=== PATIENT | female | born 1965 | race Caucasian/White ===

== ENCOUNTER 2022-09-11 05:49 | Inpatient (IN) ==
--- NOTE | 2022-08-05 15:39 | PAT Medication Instructions ---
Medication Instructions Date of Service August 05, 2022 Home Medications atorvastatin 20 mg tablet 20 mg PO QAM diclofenac sodium 75 mg tablet,delayed release 75 mg PO BID metformin 500 mg tablet 500 mg PO BID omeprazole 20 mg tablet,delayed release 20 mg PO BID tramadol 50 mg tablet 50 mg PO TID PRN Pain ASK your surgeon for instructions diclofenac sodium 75 mg tablet,delayed release 75 mg PO BID DO NOT take the morning of surgery metformin 500 mg tablet 500 mg PO BID Take morning of surgery With a small sip of water, OTHERWISE NOTHING TO EAT OR DRINK AFTER MIDNIGHT: atorvastatin 20 mg tablet 20 mg PO QAM omeprazole 20 mg tablet,delayed release 20 mg PO BID tramadol 50 mg tablet 50 mg PO TID PRN Pain (if needed) Take evening before surgery metformin 500 mg tablet 500 mg PO BID omeprazole 20 mg tablet,delayed release 20 mg PO BID tramadol 50 mg tablet 50 mg PO TID PRN Pain (if needed) Other Notes If you have any questions please call us at [phone] or [phone] or [phone] or [phone]
--- NOTE | 2022-08-11 13:58 | Anesthesiology Consultation ---
Date of Service August 11, 2022 Assessment & Plan (1) Encounter for pre-operative examination: Chart Review Chart Review: Acceptable Risk for Surgery and Patient seen in Pre Admission Testing - Check BSG AM DOS Per PAT appt on 08/11/22, [place] [facility] [place]07/30/22-08/06/22). Visited family- wore proper PPE. Pt is vaccinated for Covid. Will leave to surgeon's discretion if preop Covid testing needed. Educated on importance of using Covid precautions one week prior to surgery Teaching & Discussion Pre-Anesthesia Teaching/Discussion Notes: Instructed NPO after midnight before surgery,except medications with 15 cc of water. Medication instructions provided according to the [facility] guidelines. History Surgery Operation Date: 09/11/22 07:45 Proposed Procedures p L4-L5 Decompression and Fusion, spinal Cord Monitoring - Rajesh Jett, Height/Weight Height: 5 ft 8 in Weight: 86.5 kg Allergies Allergy/AdvReac Type Severity Reaction Status Date / Time medroxyprogesterone Allergy Severe migraines Verified 08/05/22 11:12 [From Depo-Provera] codeine AdvReac Severe nausea & Verified 08/05/22 11:10 vomitting Medications Home Medications Medication Instructions Recorded Confirmed Last Taken atorvastatin 20 mg tablet 20 mg PO QAM 08/05/22 08/05/22 Unknown diclofenac sodium 75 mg 75 mg PO BID 08/05/22 08/05/22 Unknown tablet,delayed release metformin 500 mg tablet 500 mg PO BID 08/05/22 08/05/22 Unknown omeprazole 20 mg tablet,delayed 20 mg PO BID 08/05/22 08/05/22 Unknown release tramadol 50 mg tablet 50 mg PO TID PRN Pain 08/05/22 08/05/22 Unknown Past Medical History Medical History (Updated 08/11/22 @ 15:04 by Shaniqua Falk PA-C) 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 No current issues No known ECHO or cardio follow up needed No murmur noted at PAT appt on 08/11/22 Chronic back pain Degenerative disc disease Diabetes mellitus, type 2 NIDDM- glucose well controlled per patient Diabetic gastroparalysis GERD (gastroesophageal reflux disease) Well controlled and stable Hiatal hernia History of anesthesia reaction Slow to wake up after anesthesia. History of rheumatic fever as a child Hyperlipidemia Migraine hx Motion sickness has used dramamine when on a boat. Nausea and vomiting after administration of anesthetic agent Osteoarthritis Sleep apnea Non-compliant with machine Spinal stenosis Exercise / Class Metabolic Activity II 4-5 Yardwork/Stairs/Walk up hill (one flight of stairs - no chest pain or SOB ) Past Family History Family History Other No family history of adverse response to anesthesia Past Surgical History Surgical History History of bilateral tubal ligation History of carpal tunnel release right History of section x2 History of cholecystectomy History of colonoscopy History of esophagogastroduodenoscopy (EGD) History of hysterectomy with LSO History of laparoscopy lysis of adhesions S/P epidural steroid injection Past Anesthesia History No Hx of Anesthesia Complications (with exception to slow to wake- just groggy- no reintubation or ICU stay) and No Family Hx of Anesthesia Complications History of PONV History of PONV (scop patch ordered for DOS ) and Hx of Motion Sickness Social History Smoking Status: Current every day smoker tobacco type: cigarettes Smoking cigarettes per day: 20 - 25 cigs Do You Dip or Chew Tobacco: No Hx Alcohol Use: No Hx Substance Use: No substance use type: does not use Review of Systems Patient denies chest pain, shortness of breath, dyspnea on exertion, cough, wheezing, palpitations. No hx of seizures, stroke, [place]. No hx of blood clots or blood transfusions Physical Exam Vital Signs VITALS BP 121/79 P 95 TEMP 98.2 SP02 95% RESP 16 Constitutional no acute distress ENMT Mouth: no TMJ clicking Thyromental Distance: > or= 3.5 Finger Breadths (3.5) Mallampati Class: II Full dentures on top or bottom Neck neck extension not limited Respiratory normal respiratory effort; no respiratory distress Auscultation: lungs clear to auscultation bilaterally; no wheezes Cardiovascular Rate/Rhythm: regular rate and regular rhythm Heart Sounds: no murmur Vessels: no carotid bruit Musculoskeletal Spine: no pain with cervical ROM Extremities: extremities normal to inspection Psychiatric Orientation: alert Lab Results Anesthesia Preop Results Results Anesthesia Widget: WBC 9.13 K/ul (4.8-10.8) 08/11/22 Hgb 14.6 g/dl (12.0-16.0) 08/11/22 Hct 42.7 % (34.1-44.9) 08/11/22 Plt 173 K/uL (130-400) 08/11/22 Na 139 mmol/L (136-145) 08/11/22 K 3.8 mmol/L (3.5-5.1) 08/11/22 Cl 103 mmol/L (98-107) 08/11/22 CO2 29 mmol/L (21-32) 08/11/22 BUN 18 mg/dl (6-23) 08/11/22 Creat 0.86 mg/dl (0.6-1.2) 08/11/22 Glucose Level 102 mg/dl (70-99(Fasting)) H 08/11/22 PT 11.2 Seconds (9.0-12.0) 08/11/22 PTT 28.2 Seconds (21.0-31.0) 08/11/22 INR 1.1 (0.9-1.1) 08/11/22 HA1c 6.7 % (4.5-5.6) H 08/11/22 Urine Color Yellow 08/11/22 Urine Appearance Clear (Clear) 08/11/22 Urine pH 5.5 (4.5-7.5) 08/11/22 Urine Specific [place] 1.011 (1.000-1.030) 08/11/22 Urine Protein Negative (Negative) 08/11/22 Urine Glucose (UA) Negative (Negative) 08/11/22 Urine Ketones Negative (Negative) 08/11/22 Urine Blood Negative (Negative) 08/11/22 Urine Nitrite Negative (Negative) 08/11/22 Urine Bilirubin Negative (Negative) 08/11/22 Urine Urobilinogen Negative (Negative) 08/11/22 Urine Leukocyte Esterase Negative (Negative) 08/11/22 Blood Type A Positive 08/11/22 Antibody Screen NEGATIVE 08/11/22 Testing Electrocardiogram Date: 08/11/22 Findings: + NSR @ (84bpm ) Normal EKG per cardio. Chest X-Ray Date: 08/11/22 Findings: + NAD COVID-19 Risk Screen Screening Information COVID-19 Screen Date: 08/11/22 Exposure 21 Days Family/Household +COVID Last 21 Days: No Exposure 10 Days Any COVID Exposure Last 10 Days: No Symptoms Last 10 Days Experienced COVID Sx Last 10 Days: No + COVID 0-90 Days COVID + in Last 0-90 Days: No Risk Plan COVID Risk Plan: No Risk Identified Patient Education COVID Preop Screening Education Complete: Yes
[2022-09-11] MEDS ORDERED: ACETAMINOPHEN 500 MG TAB PO SCH (06:00)
[2022-09-11] MEDS ORDERED: GABAPENTIN 600 MG DOSE PO SCH (06:00)
[2022-09-11] MEDS ORDERED: ceFAZolin 2000MG 2,000 MG/15 ML SYR IV SCH (06:00)
[2022-09-11] MEDS ORDERED: CeleBREX 200 MG CAP PO SCH (06:00)
[2022-09-11] MEDS ORDERED: LR 15ML/HR IV SCH (06:00)
[2022-09-11] MEDS ORDERED: BUPIVACAINE/EPINEPHRINE 0.25% 1:200,000 30 ML VIAL ONE (06:59)
[2022-09-11] MEDS ORDERED: ceFAZolin 330 MG/ML 1 GM VIAL ONE (06:59)
[2022-09-11] MEDS ORDERED: SCOPOLAMINE 1 MG TDSY TD ONE (07:03)
[2022-09-11] MEDS ORDERED: ATROPINE SULFATE 0.1 MG/ML 10ML SYR IV PRN (07:06)
[2022-09-11] MEDS ORDERED: ONDANSETRON INJ 2 MG/ML 2 ML VIAL IV PRN ×2 (07:06→11:01)
[2022-09-11] MEDS ORDERED: ePHEDrine sulfate 50 MG/ML AMP IV PRN (07:06)
[2022-09-11] MEDS ORDERED: HYDROmorphone INJ 2 MG/ML SYR/VIAL IV PRN (07:06)
[2022-09-11] MEDS ORDERED: SUCCINYLCHOLINE CHLORIDE 20 MG/ML 10 ML VIAL IV ONE (07:31)
[2022-09-11] MEDS ORDERED: fentaNYL citrate 100 MCG/2 ML VIAL ONE ×2 (07:33→08:27)
[2022-09-11] MEDS ORDERED: ROCURONIUM BROMIDE 10 MG/ML 5 ML VIAL IV ONE (07:33)
[2022-09-11] MEDS ORDERED: DEXAMETHASONE SOD INJ 4 MG/ML VIAL ONE (07:34)
[2022-09-11] MEDS ORDERED: ONDANSETRON INJ 2 MG/ML 2 ML VIAL ONE ×2 (07:34→08:28)
[2022-09-11] MEDS ORDERED: MIDAZOLAM HCL 1 MG/ML 2ML VIAL ONE (07:34)
[2022-09-11] MEDS ORDERED: LIDOCAINE 2% MPF LOCAL 5 ML VIAL INFIL ONE (07:35)
[2022-09-11] MEDS ORDERED: diphenhydrAMINE 50 MG/ML VIAL ONE (07:35)
--- NOTE | 2022-09-11 07:36 | History & Physical Bridge Note ---
Date of Service September 11, 2022 History & Physical Bridge Note I have examined the patient, reviewed the History & Physical and in the interval since the performance of the History & Physical I have noted the following changes of clinical significance: no changes noted
--- NOTE | 2022-09-11 07:37 | History & Physical Report ---
Date of Service September 11, 2022 Assessment & Plan (1) Neurogenic claudication due to lumbar spinal stenosis: Plan: L4-L5 decompression fusion History of Present Illness Chief Complaint: Back and leg pain Primary Care Provider: Linda Martini This is a 57-year-old female who presents with chronic persistent back and leg pain. Failed extensive course of nonoperative care is here for surgical intervention. Allergies Allergy/AdvReac Type Severity Reaction Status Date / Time medroxyprogesterone Allergy Severe migraines Verified 09/11/22 06:17 [From Depo-Provera] codeine AdvReac Severe nausea & Verified 09/11/22 06:17 vomitting Home Medications Medication Instructions Recorded Confirmed Type atorvastatin 20 mg tablet 20 mg PO QAM 08/05/22 09/11/22 History diclofenac sodium 75 mg 75 mg PO BID 08/05/22 09/11/22 History tablet,delayed release metformin 500 mg tablet 500 mg PO BID 08/05/22 09/11/22 History omeprazole 20 mg tablet,delayed 20 mg PO BID 08/05/22 09/11/22 History release tramadol 50 mg tablet 50 mg PO TID PRN Pain 08/05/22 09/11/22 History Past Med/Surg History Medical History (Updated 09/11/22 @ 07:37 by Rajesh Jett DO) 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 No current issues No known ECHO or cardio follow up needed No murmur noted at PAT appt on 08/11/22 Chronic back pain Degenerative disc disease Diabetes mellitus, type 2 NIDDM- glucose well controlled per patient Diabetic gastroparalysis Gastroparesis GERD (gastroesophageal reflux disease) Well controlled and stable Hiatal hernia History of anesthesia reaction Slow to wake up after anesthesia. History of rheumatic fever as a child Hyperlipidemia Migraine hx Motion sickness has used dramamine when on a boat. Nausea and vomiting after administration of anesthetic agent Osteoarthritis Sleep apnea Non-compliant with machine Spinal stenosis Surgical History History of bilateral tubal ligation History of carpal tunnel release right History of section x2 History of cholecystectomy History of colonoscopy History of esophagogastroduodenoscopy (EGD) History of hysterectomy with LSO History of laparoscopy lysis of adhesions S/P epidural steroid injection Family History Other No family history of adverse response to anesthesia Social History Smoking Status: Current every day smoker Cigarettes Per Day: 20 - 25 cigs; Second Hand Exposure: Yes; Do You Dip or Chew Tobacco: No; Tobacco Cessation Education Requested by Patient: No Hx Alcohol Use: No Hx Substance Use: No Preferred Language: Jordanian Communication Ability: Effective Shipmaster Required: No Beliefs That Will Affect Care: None Current Living Situation: Alone Other Information That Helps Us Care for You: No Feels Safe at Home: Yes Safety Concerns: Feels Safe At This Time Assistive Devices: Denture - Upper, Denture - Lower and Glasses Physical Exam Physical Exam: Patient is alert and oriented Heart regular rhythm Lungs clear Results & Data Results & Data ([facility]) Vital Signs (Past 12 Hours) Vital Signs Temp Pulse Resp BP Pulse Ox O2 Del Method 09/11/22 06:20 36.9 C 101 H 18 147/93 H 96 Room Air
[2022-09-11] MEDS ORDERED: FAMOTIDINE/PF 20 MG/2 ML VIAL IV ONE (07:40)
[2022-09-11] MEDS ORDERED: FLOSEAL HEMOSTATIC MATRIX 10ML TOP ONE (08:27)
[2022-09-11] MEDS ORDERED: GLYCOPYRROLATE 0.2 MG/ML VIAL ONE ×2 (09:27)
--- NOTE | 2022-09-11 09:38 | Operative Report ---
Post Operative Report Pre & Post Diagnosis Operation Date: 09/11/22 07:45 Pre-Op Diagnosis: Lumbar spinal stenosis with spondylolisthesis and neurogenic claudication Post-Op Diagnosis: Same I identified the patient and participated in the time-out.: Yes Procedure Operation Date: 09/11/22 07:45 Actual Procedures #1 lumbar decompression with bilateral medial facetectomies and foraminotomies L3-L4 L4-5. #2 posterior spinal fusion L4-5. #3 placement posterior instrumentation L4-L5. #4 interbody fusion L4-L5. #5 placement of Spira 14 x 26 mm cage at L4-5. #6 placement locally harvested morselized autograft in the posterior gutters. #7 placement of I factor combined with V toss in the right space and posterior gutters. Surgeon Rajesh Jett, Refining Engineer None Estimated Blood Loss 100 Findings Consistent with Post-Op Diagnosis Specimens None Indications This is a 57-year-old female presents above-mentioned diagnosis after failed course of nonoperative care she is here for surgical intervention. Description of Procedure Patient was met with identified informed consent obtained. Patient was then taken to the operative suite underwent an patient placed in a prone position on the Spike table on top of the Dangelo frame. All bony prominences well-padded eyes inspected to ensure no external pressure placed upon them. This point the lumbar spine was prepped and draped in the normal sterile fashion. Sharp dissection with the assistance of Bovchucky Cardizem performed down to and exposing the lamina transverse processes of L4-L5 bilaterally. From caudal to cephalad fashion complete laminectomy of L for partial laminectomy L3 was performed including bilateral medial facetectomies and foraminotomies addressing severe spinal stenosis. Pedicle screws then placed at L4-L5 bilaterally with assistance of fluoroscopy and properly sized hannah placed. By way of entrance foraminal approach and left pleat discectomy of L4-L5 was performed endplates curetted to subcortical bleeding bone and a 14 x 26 mm Spira cage filled with I factor tapped in position. The rods then locked in final position bilaterally. The transverse processes of L4-L5 burred to subcortical bleeding bone. I factor model V toss and locally harvested morselized autograft was placed in the posterior gutters. 15 round MITZI inserted. The incision was then closed with 1 Vicryl in the fascia 2-0 Vicryl subcutaneously and 4 Monocryl for final skin closure. Steri-Strips dressings placed. Patient awakened taken to PACU stable condition. Please note spinal cord monitoring was utilized at the procedure no changes noted. I attest to the content of the Intraoperative Record and any orders documented therein. Any exceptions are noted below.
[2022-09-11] MEDS: fentaNYL citrate 100 MCG/2 ML VIAL IV PRN ×4 (10:13→10:28)
--- NOTE | 2022-09-11 10:28 | Fluoroscopy Report ---
FL lumbar spine 2-3V HISTORY: 57 years-old Female L4-L5 DECOMPRESSION AND FUSION COMPARISON: None TECHNIQUE: 2 spot fluoroscopic images of the lumbar spine were obtained utilizing 16.9 seconds fluoro scopy time FINDINGS: Posterior interbody hannah and screw fusion with discectomy at L4-L5. The hardware appears intact. No un expected residual opaque foreign bodies identified. Multilevel spondylitic spurring. IMPRESSION: Fluoroscopic assistance as above. ACT 112: Negative or not required by law. The above report was generated using voice recognition software. It may contain grammatical, syntax o r spelling errors. Electronically signed by: Richard Bowser M.D. 09/11/2022 10:27 AM
--- NOTE | 2022-09-11 10:52 | Anesthesiology Progress Note ---
Date of Service September 11, 2022 Anesthesia Post Procedure Vital Signs Vital Signs: Temp Pulse Pulse Resp BP Pulse Ox O2 Del Method 09/11/22 10:40 97.3 F L 94 H 15 120/83 95 Nasal Cannula 09/11/22 10:30 99 H 14 129/89 96 Oxymask 09/11/22 10:20 95 H 13 111/74 97 Oxymask 09/11/22 10:10 105 H 14 141/90 H 99 Oxymask 09/11/22 10:00 95 H 13 126/88 98 Oxymask 09/11/22 09:53 97.9 F 102 H 14 125/87 97 Oxymask 09/11/22 06:20 98.4 F 101 H 18 147/93 H 96 Room Air O2 Flow Rate 09/11/22 10:40 2 09/11/22 10:30 4 09/11/22 10:20 6 09/11/22 10:10 6 09/11/22 10:00 6 09/11/22 09:53 6 09/11/22 06:20 Pain Intensity Back: Pain Intensity: 9 Transfer of Care Handoff Completed per policy Notes Mental Status: alert / awake / arousable and participated in evaluation Patient Amnestic to Procedure: Yes Nausea / Vomiting: adequately controlled Pain: adequately controlled Airway Patency, RR, SpO2: stable & adequate BP & HR: stable & adequate Hydration State: stable & adequate Anesthetic Complications: no major complications apparent and Pt Satisfied with anesthetic care
[2022-09-11] MEDS ORDERED: METOCLOPRAMIDE HCL INJ 5 MG/ML 2 ML VIAL IV PRN (11:01)
[2022-09-11] MEDS ORDERED: SOD PHOSPHATE/SOD BIPHOSPHATE ENEMA 132 ML BTL PR PRN (11:01)
[2022-09-11] MEDS ORDERED: PHARMACY GLYCEMIC MGMT CONSULT PRN (11:01)
[2022-09-11] MEDS ORDERED: ACETAMINOPHEN 1,000 MG/100 ML VIAL IV PRN (11:01)
[2022-09-11] MEDS ORDERED: MAGNESIUM HYDROXIDE SUSP 30 ML UDC PO PRN (11:01)
[2022-09-11] MEDS ORDERED: LORazepam 2 MG/1 ML VIAL IV PRN (11:01)
[2022-09-11] MEDS ORDERED: LORazepam 0.5 MG TAB PO PRN (11:01)
[2022-09-11] MEDS ORDERED: DO NOT ADMINISTER FLU VACCINE PRN (11:01)
[2022-09-11] MEDS ORDERED: HYDROmorphone INJ 0.5 MG/0.5 ML SYR IV PRN (11:01)
[2022-09-11] MEDS ORDERED: HYDROmorphone INJ 1 MG/ML SYRINGE IV PRN (11:01)
[2022-09-11] MEDS ORDERED: ONDANSETRON 4 MG OD TAB PO PRN (11:01)
[2022-09-11] MEDS ORDERED: NALOXONE HCL 0.4 MG/1 ML VIAL/CARP IV PRN (11:01)
[2022-09-11] MEDS ORDERED: diphenhydrAMINE Capsule 25 MG CAP PO PRN (11:01)
[2022-09-11] MEDS ORDERED: bisacodyL 10 MG SUPP PR PRN (11:01)
[2022-09-11] MEDS ORDERED: hydrOXYzine HCl 25 MG TAB PO PRN (11:01)
[2022-09-11] MEDS ORDERED: ALUMINUM/MAGNESIUM SUSP 30 ML UDC PO PRN (11:01)
[2022-09-11] MEDS ORDERED: DO NOT ADMINISTER PNEUMOCOCCAL VACCINE PRN (11:01)
[2022-09-11] MEDS ORDERED: FAMOTIDINE 20 MG TAB PO PRN (11:01)
[2022-09-11] MEDS ORDERED: ACETAMINOPHEN 500 MG TAB PO PRN (11:01)
[2022-09-11] MEDS ORDERED: PROMETHAZINE HCL 12.5 MG in SODIUM CHLORIDE 0.9% 50 ML IV PRN (11:01)
[2022-09-11] MEDS: SODIUM CHLORIDE 0.9% 1000ML 1,000 ML IV SCH ×2 (11:20→20:49)
[2022-09-11] MEDS: oxyCODONE HCL IR 5 MG TAB (IMMEDIATE RELEASE) PO PRN ×3 (11:22→20:08)
--- NOTE | 2022-09-11 11:35 | Hospitalist Consultation ---
Date of Consultation September 11, 2022 Assessment & Plan (1) Neurogenic claudication due to lumbar spinal stenosis: - Pain management, bowel regimen and DVT ppx per the primary team - PT/OT consults - Follow am CBC to monitor for acute blood loss, last hgb was 14.6 (2) Diabetes mellitus, type 2: - Continue ISS with Accu-Cheks ACHS, 1 dose of insulin glargine 10 units due at noon today - Glycemic pharmacy consulted - Holding metformin (3) Hyperlipidemia: - May continue atorvastatin (4) Sleep apnea: - Noncompliant with home CPAP, will order here (5) Tobacco abuse: - Smoking cessation encouraged at bedside - Will order nicotine patch now for hx of 1.5 ppd x 40 years (6) GERD (gastroesophageal reflux disease): -Continue omeprazole DVT PPx: - teds, scds CODE: Full code Dispo: From home, likely to remain in the hospital x 1-2 days Thank you for involving us in the care of Ms. Daniels. If you have any questions or concerns please do not hesitate to call. At this time medicine will follow along. Supervising Physician Co-Signing Physician Notes I have seen and examined the patient and have discussed the case with the provider above. I agree with the assessment and plan as stated. 57 yo F post op from back surgery today. She is sleepy but doing well and has no symptoms at this time. Reports that pain is well managed. My physical exam reflects that above. Medications were reviewed. Cont management as listed above. DO Sánchez History of Present Illness Reason for Consultation: Post op med management Requesting Physician: Dr. Jett Attending Physician: Rajesh Jett DO History of Present Illness This is a 57 yo F with PMhx of DM type II, HLD, cardiac murmur, DDD, diabetic gastroparesis paralysis, GERD, migraine, sleep apnea, spinal stenosis who underwent L4-L5 decompression surgery today by Dr. Jett. She is still sleepy from anesthesia. Her son Nahum and [id number] are present at bedside. They report that the patient lives with them in a ranch style home. Last BM was yesterday. Pt reports that she smokes 1.5 ppd x 40 years. She is requesting a nicotine patch. Pain is well controlled now after getting a pain pill a little bit ago. Denies any other complaints. Lunch has just arrived but hasn't trialed food yet, but has tolerated sips of water without difficulty. She reports sensation is back completely in both of her feet and is able to wiggle toes without difficulty. Allergies Allergy/AdvReac Type Severity Reaction Status Date / Time medroxyprogesterone Allergy Severe migraines Verified 09/11/22 06:17 [From Depo-Provera] codeine AdvReac Severe nausea & Verified 09/11/22 06:17 vomitting Home Medications Medication Instructions Recorded Confirmed Type atorvastatin 20 mg tablet 20 mg PO QAM 08/05/22 09/11/22 History diclofenac sodium 75 mg 75 mg PO BID 08/05/22 09/11/22 History tablet,delayed release metformin 500 mg tablet 500 mg PO BID 08/05/22 09/11/22 History omeprazole 20 mg tablet,delayed 20 mg PO BID 08/05/22 09/11/22 History release tramadol 50 mg tablet 50 mg PO TID PRN Pain 08/05/22 09/11/22 History oxycodone 5 mg tablet 5 mg PO Q6H PRN pain, severe #30 09/11/22 Rx tabs tramadol 50 mg tablet 50 mg PO Q6H PRN pain, moderate 09/11/22 Rx #30 tabs Patient History Medical History (Updated 09/11/22 @ 13:14 by Kate Joyner PA-C) 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 No current issues No known ECHO or cardio follow up needed No murmur noted at PAT appt on 08/11/22 Chronic back pain Degenerative disc disease Diabetes mellitus, type 2 NIDDM- glucose well controlled per patient Diabetic gastroparalysis Gastroparesis GERD (gastroesophageal reflux disease) Well controlled and stable Hiatal hernia History of anesthesia reaction Slow to wake up after anesthesia. History of rheumatic fever as a child Hyperlipidemia Migraine hx Motion sickness has used dramamine when on a boat. Nausea and vomiting after administration of anesthetic agent Osteoarthritis Sleep apnea Non-compliant with machine Spinal stenosis Surgical History History of bilateral tubal ligation History of carpal tunnel release right History of section x2 History of cholecystectomy History of colonoscopy History of esophagogastroduodenoscopy (EGD) History of hysterectomy with LSO History of laparoscopy lysis of adhesions S/P epidural steroid injection Family History Other No family history of adverse response to anesthesia Social History Smoking Status: Current every day smoker Cigarettes Per Day: 20 - 25 cigs; Second Hand Exposure: Yes; Do You Dip or Chew Tobacco: No; Tobacco Cessation Education Requested by Patient: No Hx Alcohol Use: No Hx Substance Use: No Preferred Language: New Zealander Communication Ability: Effective Ceramic Tiler Required: No Beliefs That Will Affect Care: None Current Living Situation: Alone Other Information That Helps Us Care for You: No Feels Safe at Home: Yes Safety Concerns: Feels Safe At This Time Assistive Devices: Denture - Upper, Denture - Lower and Glasses Review of Systems Review of Systems: Constitutional: No fever, sweats or chills Eyes: No diplopia, no worsening or blurred vision ENT: normal hearing, no trouble swallowing Respiratory: No cough, sputum, dyspnea at rest or on exertion Cardiovascular: No chest pain, tightness or palpitations Abdomen: No pain, nausea, vomiting, diarrhea or constipation Musculoskeletal: No joint pain, calf pain, swelling Neurologic: No weakness, numbness/tingling, or balance problems Psychiatric: No anxiety or depression Skin: No rash or itch Physical Exam Physical Exam: General: awakens to verbal stimuli but is somnolent post procedure, no apparent distress Head: Normocephalic, atraumatic ENT: PERRL, EOMI, no pharyngeal exudate, mucous membranes moist Chest: Clear to auscultation, on room air, no adventitious breath sounds Cardiac: Regular rate and rhythm, no murmur, no JVD, normal peripheral pulses, good capillary refill Abdominal: NABS x 4 quadrants, soft, nondistended, nontender to palpation, no rebound or guarding Back: dressing c/d/i, MITZI drain in place draining serosanguineous bloody fluids Extremities: + clubbing of fingernails, otherwise normal inspection, no peripheral edema or erythema, calfs nontender to palpation, wiggles toes without difficulty Psych: Normal mood and affect Neuro: AAO x 3, strength intact bilaterally and rated 5/5 in lower extremities, no gross motor deficits, speech is clear, no peripheral sensory deficits Results & Data Results & Data ([facility]) Vital Signs (Past 12 Hours) Vital Signs Temp Pulse Pulse Resp BP Pulse Ox O2 Del Method 09/11/22 11:25 36.3 C L 94 H 17 128/85 99 Nasal Cannula 09/11/22 11:00 36.6 C 77 16 127/76 99 Nasal Cannula 09/11/22 10:40 36.3 C L 94 H 15 120/83 95 Nasal Cannula 09/11/22 10:30 99 H 14 129/89 96 Oxymask 09/11/22 10:20 95 H 13 111/74 97 Oxymask 09/11/22 10:10 105 H 14 141/90 H 99 Oxymask 09/11/22 10:00 95 H 13 126/88 98 Oxymask 09/11/22 09:53 36.6 C 102 H 14 125/87 97 Oxymask 09/11/22 06:20 36.9 C 101 H 18 147/93 H 96 Room Air O2 Flow Rate 09/11/22 11:25 2 09/11/22 11:00 2 09/11/22 10:40 2 09/11/22 10:30 4 09/11/22 10:20 6 09/11/22 10:10 6 09/11/22 10:00 6 09/11/22 09:53 6 09/11/22 06:20 Laboratory Results 09/11/22 09/11/22 09/11/22 12:03 09:55 06:10 POC Glucose 173 H 167 H 124 H SARS-CoV-2, RNA, NAAT 09/11/22 06:00 POC Glucose SARS-CoV-2, RNA, NAAT NEGATIVE
--- NOTE | 2022-09-11 11:56 | Pharmacy Report ---
Pharmacy Glycemic Short Note 2 - Date of Service September 11, 2022 - Glycemic Short BSG Results (Last 24 hours): 09/11/22 09/11/22 06:10 09:55 POC Glucose 124 H 167 H OUTPATIENT ANTIDIABETIC REGIMEN: * Metformin 500 mg PO BID ASSESSMENT: * 57 y/o F admitted for lumbar decompression surgery today. Patient with history of Type 2 diabetes managed at home only on oral Metformin. * Holding Metformin for now post op, until renal function is stable and patient is back on normal diet. * Patient received Dexamethasone 4 mg IV in OR this morning. Lantus 10 units (based on wt and stress of 1) ordered for noon today to prevent steroid induced hyperglycemia later today. * IV Dexamethasone 6 mg QAM x3 days starts tomorrow. Will re-assess basal dosing tomorrow. * Novolog parameters ordered based on stress between 2 and 3. PLAN FOR INPATIENT GLYCEMIC CONTROL: * Hold outpatient oral diabetes medications * Basal insulin * Lantus 10 units SQ today at noon for IV Dex 4 mg given today in AM. Re- assess basal tomorrow. * Bolus insulin * NovoLog per scale ACHS or Q6hrs while NPO * Goal Range: Low 110 mg/dL - High 140 mg/dL * Correction Factor: 25 mg/dL/unit * Nutritional / Prandial insulin per carb ratio of 1 unit per 9 grams CHO consumed
[2022-09-11] MEDS ORDERED: LANTUS PER UNIT CHARGE SQ SCH (12:00)
[2022-09-11] MEDS: INSULIN ASPART PER UNIT SC SCH ×3 (12:52→20:49)
[2022-09-11] MEDS: NICOTINE 21 MG/24 HR TDSY TD SCH (14:00)
[2022-09-11] MEDS: ceFAZolin 2000MG 2,000 MG/15 ML SYR IV SCH ×2 (15:04→23:37)
[2022-09-11] MEDS: DOCUSATE SODIUM/SENNA 50/8.6MG TAB PO SCH (20:08)
[2022-09-11] MEDS: PANTOprazole 40 MG TAB PO SCH (20:08)
[2022-09-12] MEDS: oxyCODONE HCL IR 5 MG TAB (IMMEDIATE RELEASE) PO PRN ×3 (03:10→13:12)
[2022-09-12] MEDS: SODIUM CHLORIDE 0.9% 1000ML 1,000 ML IV SCH (05:34)
[2022-09-12] MEDS ORDERED: POLYETHYLENE (MIRALAX) 17 GM PACK PO SCH (06:00)
[2022-09-12 07:49] LABS: Basophils # (auto) 0.02 K/uL (0-0.2); Basophils % (auto) 0.1 %; Eosinophils # (auto) 0.01 K/uL (0-0.50); Eosinophils % (auto) 0.1 %; Hematocrit (blood only) 40.6 % (34.1-44.9); Hemoglobin 13.5 g/dl (12.0-16.0); Immature Granulocytes # (auto) 0.07 K/uL (0.00-0.02); Immature Granulocytes % (auto) 0.5 %; Lymphocytes # (auto) 1.88 K/uL (1.2-3.4); Lymphocytes % (auto) 12.8 %; Mean Corpuscular Hemoglobin 30.3 pg (25.0-34.0); Mean Corpuscular Hgb Conc 33.3 g/dL (32.0-36.0); Monocytes # (auto) 1.18 K/uL (0.24-0.82); Neutrophils # (auto) 11.58 K/uL (1.4-6.5); Neutrophils % (auto) 78.5 %; Platelet Count 182 K/uL (130-400); RDW Coefficient of Variation 12.5 % (11.5-14.5); RDW Standard Deviation 41.4 fL (36.4-46.3); Red Blood Count 4.46 M/uL (3.93-5.22); White Blood Count 14.74 K/ul (4.8-10.8)
[2022-09-12 08:28] LABS: BUN Creatinine Ratio 18.1 (10-20); Calcium 8.7 mg/dl (8.5-10.1); Creatinine Clr Calc Pharmacy 94.9 ml/min; Est GFR (African American) 107.7 ml/min; Potassium 4.7 mmol/L (3.5-5.1)
[2022-09-12] MEDS: traMADol HCL 50 MG TABLET PO PRN ×3 (08:47→20:07)
[2022-09-12] MEDS: dexAMETHasone 6 MG in SYRINGE 0 ML IV SCH (08:48)
[2022-09-12] MEDS: PANTOprazole 40 MG TAB PO SCH ×2 (08:48→21:13)
[2022-09-12] MEDS: NICOTINE 21 MG/24 HR TDSY TD SCH (08:48)
[2022-09-12] MEDS: ATORVASTATIN 20 MG TAB PO SCH (08:49)
[2022-09-12] MEDS ORDERED: LANTUS PER UNIT CHARGE SQ SCH (09:00)
[2022-09-12] MEDS: INSULIN ASPART PER UNIT SC SCH ×4 (09:06→21:24)
--- NOTE | 2022-09-12 09:32 | Orthopedic Progress Note ---
Date of Service September 12, 2022 Assessment & Plan (1) Neurogenic claudication due to lumbar spinal stenosis: Plan: At this time we will continue physical therapy monitor MITZI operatively discharge home next few days. Admission and Anticipated Discharge Date Admission Date: September 11, 2022 Subjective Back pain controlled leg pain improved Physical Exam Physical Exam: Patient is in bed. She is constricted testing. Results & Data ([facility]) Vital Signs (Past 12 Hours) Vital Signs Temp Pulse Resp BP Pulse Ox O2 Del Method 09/12/22 06:59 36.6 C 82 16 102/66 93 Room Air 09/12/22 02:59 36.5 C 77 16 112/68 96 Room Air 09/11/22 23:26 36.9 C 80 16 114/64 95 Room Air
--- NOTE | 2022-09-12 12:25 | Pharmacy Report ---
Pharmacy Glycemic Short Note 2 - Date of Service September 12, 2022 - Glycemic Short BSG Results (Last 24 hours): 09/11/22 09/11/22 09/12/22 17:01 20:41 07:06 Glucose 126 H POC Glucose 138 H 142 H 09/12/22 09/12/22 08:16 12:06 Glucose POC Glucose 124 H 180 H OUTPATIENT ANTIDIABETIC REGIMEN: * Metformin 500 mg PO BID HbA1c: 6.7% 08/11/22 ASSESSMENT: 09/12/22: * BSGs reasonably well-controlled postoperatively * SCr this morning of 0.72 mg/dL (eCrCl 95 mL/min) * Will restart home metformin with dinner tonight * Will slightly tighten carb coverage today 09/11/22: * 57 y/o F admitted for lumbar decompression surgery today. Patient with history of Type 2 diabetes managed at home only on oral Metformin. * Holding Metformin for now post op, until renal function is stable and patient is back on normal diet. * Patient received Dexamethasone 4 mg IV in OR this morning. Lantus 10 units (based on wt and stress of 1) ordered for noon today to prevent steroid induced hyperglycemia later today. * IV Dexamethasone 6 mg QAM x3 days starts tomorrow. Will re-assess basal dosing tomorrow. * Novolog parameters ordered based on stress between 2 and 3. PLAN FOR INPATIENT GLYCEMIC CONTROL: * Metformin 500 mg PO BIDM * Basal insulin * Lantus 10 units SC daily * Bolus insulin * NovoLog per scale ACHS or Q6hrs while NPO * Goal Range: Low 110 mg/dL - High 140 mg/dL * Correction Factor: 25 mg/dL/unit * Nutritional / Prandial insulin per carb ratio of 1 unit per 8 grams CHO consumed
--- NOTE | 2022-09-12 14:49 | Hospitalist Progress Note ---
Date of Service September 12, 2022 Assessment & Plan (1) Neurogenic claudication due to lumbar spinal stenosis: Plan: S/P lumbar decompression, fusion surgery by Dr. Jett on 09/11/2022 Pain management, DVT px, wound care per the primary team Continue PT/OT Fall precautions Bowel regimen to prevent constipation Continue incentive spirometry Monitor for postop anemia (2) Diabetes mellitus, type 2: Plan: - Continue ISS per protocol - Glycemic pharmacy consulted - Hold metformin - Monitor BGs (3) Hyperlipidemia: Plan: - On atorvastatin (4) Sleep apnea: Plan: - CPAP HS (5) Tobacco abuse: Plan: - Smoking cessation encouraged - Nicotine patch (6) GERD (gastroesophageal reflux disease): Plan: -Continue PPI DVT Px: Per Primary team CODE STATUS: Full code Admission and Anticipated Discharge Date Admission Date: September 11, 2022 Subjective Patient is seen and examined at bedside Sitting in chair during my encounter Reports back pain, controlled Also reports constipation Denies any chest pain, shortness of breath, dizziness, nausea No other complaints Family at bedside Review of Systems Review of Systems: All systems reviewed & are unremarkable except as noted in Subjective Physical Exam Physical Exam: Physical Exam: Vitals signs as noted above General Appearance:Moderately built and nourished, no apparent distress Head: normocephalic, Atraumatic Eyes: normal inspection, EOMI Neck: supple, Trachea midline Respiratory/Chest: Normal breath sounds, CTA, No accessory muscle use Cardiovascular: S1, S2, No murmur Back: +Surgical site in dressing Abdomen/GI:Soft, Non tender, Bowel sounds present Extremities/Musculoskeletal:normal inspection, no edema Neurologic/Psych:AAOX3, grossly no focal neurological deficits Skin: normal color, warm Results & Data Results & Data ([facility]) Vital Signs (Past 12 Hours) Vital Signs Temp Pulse Resp BP Pulse Ox O2 Del Method 09/12/22 12:07 36.8 C 88 16 117/75 95 Room Air 09/12/22 06:59 36.6 C 82 16 102/66 93 Room Air 09/12/22 02:59 36.5 C 77 16 112/68 96 Room Air Laboratory Results Short CBC 09/12/22 Range/Units 07:06 WBC 14.74 H (4.8-10.8) K/ul Hgb 13.5 (12.0-16.0) g/dl Hct 40.6 (34.1-44.9) % Plt Count 182 (130-400) K/uL BMP 09/12/22 07:06 Sodium 140 Potassium 4.7 Chloride 103 Carbon Dioxide 33 H BUN 13 Creatinine 0.72 Glucose 126 H Calcium 8.7
[2022-09-12] MEDS: metFORMIN HCL 500 MG TAB PO SCH (17:50)
[2022-09-12] MEDS: DOCUSATE SODIUM/SENNA 50/8.6MG TAB PO SCH (21:14)
[2022-09-13] MEDS: traMADol HCL 50 MG TABLET PO PRN (06:48)
[2022-09-13 06:54] LABS: Hematocrit (blood only) 38.5 % (34.1-44.9); Hemoglobin 12.9 g/dl (12.0-16.0); Mean Corpuscular Hemoglobin 30.2 pg (25.0-34.0); Mean Corpuscular Hgb Conc 33.5 g/dL (32.0-36.0); Mean Corpuscular Volume 90.2 fL (80.0-100.0); Mean Platelet Volume 11.4 fL (9.4-12.3); Platelet Count 185 K/uL (130-400); RDW Coefficient of Variation 12.4 % (11.5-14.5); RDW Standard Deviation 41.1 fL (36.4-46.3); Red Blood Count 4.27 M/uL (3.93-5.22); White Blood Count 13.04 K/ul (4.8-10.8)
[2022-09-13 07:19] LABS: BUN Creatinine Ratio 21.7 (10-20); Calcium 8.7 mg/dl (8.5-10.1); Est GFR (Non-African American) 96.6 ml/min; Potassium 4.1 mmol/L (3.5-5.1)
[2022-09-13] MEDS ORDERED: LANTUS PER UNIT CHARGE SQ SCH (09:00)
[2022-09-13] MEDS: PANTOprazole 40 MG TAB PO SCH (09:35)
[2022-09-13] MEDS: metFORMIN HCL 500 MG TAB PO SCH (09:35)
[2022-09-13] MEDS: ATORVASTATIN 20 MG TAB PO SCH (09:35)
[2022-09-13] MEDS: dexAMETHasone 6 MG in SYRINGE 0 ML IV SCH (09:36)
[2022-09-13] MEDS: NICOTINE 21 MG/24 HR TDSY TD SCH (09:36)
[2022-09-13] MEDS: INSULIN ASPART PER UNIT SC SCH (09:49)
[2022-09-13] MEDS: oxyCODONE HCL IR 5 MG TAB (IMMEDIATE RELEASE) PO PRN (09:53)
--- NOTE | 2022-09-13 10:44 | Discharge Summary ---
Date of Service September 13, 2022 Admission HPI Per Admitting Provider This is a 57-year-old female who presents with chronic persistent back and leg pain. Failed extensive course of nonoperative care is here for surgical intervention. Principal Diagnosis Lumbar spinal stenosis with neurogenic claudication Discharge Data Allergies Allergy/AdvReac Type Severity Reaction Status Date / Time medroxyprogesterone Allergy Severe migraines Verified 09/11/22 06:17 [From Depo-Provera] codeine AdvReac Severe nausea & Verified 09/11/22 06:17 vomitting Consultations 09/11/22 11:01 Consult Hospitalist Routine Procedures Performed Operation Date: 09/11/22 07:45 Actual Procedures p L4-L5 Decompression and Fusion, Interbody Fusion L4-L5, Spinal Cord Monitoring(Not Applicable) - Rajesh Jett DO Ordered Studies 09/11/22 07:45 FL lumbar spine 2-3V Routine Hospital Course (1) Neurogenic claudication due to lumbar spinal stenosis: Patient with lumbar decompression fusion tolerated this well was taken to the with performed separately. Postoperatively when she was up and ambulating progress postop day 2. MITZI drain decreasing probably. EXTR strength testing. Pain well controlled. Subsequently discharged home. Discharge orders and instructions from the chart for further review. Total Time Total Time Spent Total Time Spent (In Minutes): 20 minutes Discharge Plan Discharge Items Patient Disposition: Home - Self-Care Reason For Visit: Spinal Stenosis, Lumbar Region Without Neurogenic Discharge Diagnosis: Lumbar spinal stenosis with neurogenic claudication Activity: As commented below Non-emergency contact: Primary Care Provider Call non-emergency contact if: you have any medication questions Follow-up/Referrals: Linda Martini M.D. [Primary Care Provider] - Diet: Regular Addtl Attending Provider Instructions: ACTIVITY RECOMMENDATIONS: SELF CARE INSTRUCTIONS AFTER THORACIC/LUMBAR FUSIONS 1. You may walk to your tolerance. It is good exercise for your legs and back. Expect some back and intermittent leg aches and pains. 2. You may perform "counter-top" level activities (make a sandwich, terrance with a project, etc.). 3. No bending or lifting of more than 10 pounds or back twisting of any nature (roll like a log when turning in bed). 4. You may ride in a car for 20-30 minutes at a time. No driving until after your first visit with your doctor. 5. Frequent changes of position and restricting sitting to 30 minutes at a time will help limit the amount of back spasms and stiffness you may experience. 6. You may discontinue the use of ambulatory aids (cane, crutches, etc.) once your strength and confidence allow. 7. You may spring tester the shower and let water strike your incision when you arrive home at least once daily. Do not take a tub bath, sit in a hot tub or go into a swimming pool until after your first recheck in the office. SPECIAL CARE INSTRUCTIONS: VERY IMPORTANT TO READ AND REVIEW A. Your surgical incision has been closed with a cosmetic suture under the skin that will dissolve in about 6 weeks. In 14 days, you can use a pair of clean scissors and cut the suture that is left outside of the skin at the ends of your incision. 1. The small skin tapes can be removed 7 days after surgery if they have not fallen off by that point. 2. You may keep the wound open to air as much as possible to promote healing after post-op day number 5 unless told otherwise by your doctor. 3. If you think the wound looks like it is becoming infected (redness or worsening drainage) and/or you are experiencing fever, chill or worsening back pain and muscle spasms, contact the office so that we may e valuate you as soon as possible. B. Complications are uncommon, but please contact us if you have any signs or symptoms of: 1. wound infection (fever higher than 102.5 degrees F, redness, separation of wound, drainage, or increasing pain from the incision) 2. blood clots in legs (pain, swelling, redness and warmth in legs) 3. urinary tract infection (fever higher than 102.5 degrees F, burning upon urination or increased frequency of urination) 4. nerve problems (inability to walk on your toes or heels, numbness, loss of bowel or bladder control) 5. any other symptoms that concern you C. Please call the office at if you have any concerns or questions about your operation or recovery. D. No smoking! Smoking drastically decreases the chance of a solid fusion. E. Do not take any anti-inflammatory medications (Indocin, Advil, Motrin, Aspirin, Naprosyn, etc.) as these may inhibit the chance of a solid fusion. Tylenol is okay to take for pain. MANAGING PAIN AFTER SPINAL SURGERY 1. Narcotic medication is intended for short-term use and will be provided for surgical pain. Surgical pain usually lasts for a period of 4-6 weeks. Narcotic medication includes Percocet, Vicodin, Darvocet, Tylenol #3 or Lortab. 2. Longer-term pain is more appropriately treated with non-narcotic medication such as Tylenol ES. 3. Muscle spasm is not appropriately treated with narcotics. Muscle relaxers such as Soma, Flexeril or Skelaxin can be used along with Tylenol ES. 4. Remember that we all live with some "aches and pains". This is not unusual or uncommon after an injury or as we get older. a. Back pain is expected and may include muscle spasms for 4 to 6 weeks after surgery. The pain should gradually improve. If the pain worsens for no apparent reason, please contact the office. b. Intermittent leg pain may also be experienced and should not be concerned about unless it worsens for no apparent reason. If so, please contact the office. 5. We will provide appropriate medication within the normal guidelines of their prescribed use. We will also be very cautious and aware of potential abuse and extended duration of patients' medication needs. a. Pain medications are for your comfort and to assist with sleep and rest so that the tissue can heal. They are not provided in order to return to normal activity and should not be used through the day. To do so or worsening pain at night can result from ongoing tissue damage and development of tolerance to the prescribed medicine. 6. Please allow 2-3 days to process refills. Prescriptions will not be mailed but must be picked up at the office. FOLLOW UP VISIT: Keep your scheduled follow-up appointment. Any questions, please call the office at . Pending Studies at Discharge: No Stand-Alone Forms: My [employer], Smoking Cessation Medications and AR Order Prescriptions: New tramadol 50 mg tablet 50 mg PO Q6H PRN (Reason: pain, moderate) Qty: 30 0RF oxycodone 5 mg tablet 5 mg PO Q6H PRN (Reason: pain, severe) Qty: 30 0RF Continued metformin 500 mg Tablet 500 mg PO BID atorvastatin 20 mg Tablet 20 mg PO QAM tramadol 50 mg Tablet 50 mg PO TID PRN (Reason: Pain) omeprazole 20 mg Tablet,Delayed Release (Dr/Ec) 20 mg PO BID Discontinued diclofenac sodium 75 mg Tablet,Delayed Release (Dr/Ec) 75 mg PO BID Discharge Orders: Discharge Order (Routine); Ordered 09/13/22 Ordered By: Rajesh Jett Admission Data Admit Date/Time: 09/11/22 09:41 Attending Provider: Rajesh Jett Admit Provider: Rajesh Jett Primary Care Provider: Linda Martini Other Providers: Cheri Pozo ; Jean Mathews
--- NOTE | 2022-09-13 10:56 | Hospitalist Progress Note ---
Date of Service September 13, 2022 Assessment & Plan (1) Neurogenic claudication due to lumbar spinal stenosis: Plan: S/P lumbar decompression, fusion surgery by Dr. Jett on 09/11/2022 Pain management, DVT px, wound care per the primary team Continue PT/OT - dc home Fall precautions Bowel regimen to prevent constipation Continue incentive spirometry Monitor for postop anemia - stable - dispo per ortho (2) Diabetes mellitus, type 2: Plan: - Continue ISS per protocol - Glycemic pharmacy consulted - Hold metformin - resume as outpatient - Monitor BGs (3) Hyperlipidemia: Plan: - On atorvastatin (4) Sleep apnea: Plan: - CPAP HS (5) Tobacco abuse: Plan: - Smoking cessation encouraged - Nicotine patch (6) GERD (gastroesophageal reflux disease): Plan: -Continue PPI DVT Px: Per Primary team CODE STATUS: Full code Admission and Anticipated Discharge Date Admission Date: September 11, 2022 Subjective Patient is seen and examined at bedside Sitting in chair during my encounter Reports back pain, controlled Denies any chest pain, shortness of breath, dizziness, nausea No other complaints Review of Systems Review of Systems: All systems reviewed & are unremarkable except as noted in Subjective Physical Exam Physical Exam: General Appearance:Moderately built and nourished, no apparent distress Head: normocephalic, Atraumatic Eyes: normal inspection, EOMI Neck: supple, Trachea midline Respiratory/Chest: Normal breath sounds, CTA, No accessory muscle use Cardiovascular: S1, S2, No murmur Back: +Surgical site in dressing, MITZI drain with minimal bloody drainage Abdomen/GI:Soft, Non tender, Bowel sounds present Extremities/Musculoskeletal:normal inspection, no edema Neurologic/Psych:AAOX3, grossly no focal neurological deficits Skin: normal color, warm Results & Data Results & Data ([facility]) Vital Signs (Past 12 Hours) Vital Signs Temp Pulse Resp BP Pulse Ox O2 Del Method 09/13/22 07:12 36.8 C 75 16 117/74 95 Room Air Diagnostic Findings Laboratory Results WBC 13.04 K/ul (4.8-10.8) H 09/13/22 06:27 RBC 4.27 M/uL (3.93-5.22) 09/13/22 06:27 Hgb 12.9 g/dl (12.0-16.0) 09/13/22 06:27 Hct 38.5 % (34.1-44.9) 09/13/22 06:27 MCV 90.2 fL (80.0-100.0) 09/13/22 06:27 MCH 30.2 pg (25.0-34.0) 09/13/22 06:27 MCHC 33.5 g/dL (32.0-36.0) 09/13/22 06:27 RDW Std Deviation 41.1 fL (36.4-46.3) 09/13/22 06:27 RDW Coeff of Tonya 12.4 % (11.5-14.5) 09/13/22 06:27 Plt Count 185 K/uL (130-400) 09/13/22 06:27 MPV 11.4 fL (9.4-12.3) 09/13/22 06:27 Immature Gran % (Auto) 0.5 % 09/12/22 07:06 Neut % (Auto) 78.5 % 09/12/22 07:06 Lymph % (Auto) 12.8 % 09/12/22 07:06 [place] % (Auto) 8.0 % 09/12/22 07:06 Eos % (Auto) 0.1 % 09/12/22 07:06 Baso % (Auto) 0.1 % 09/12/22 07:06 Neut # (Auto) 11.58 K/uL (1.4-6.5) H 09/12/22 07:06 Lymph # (Auto) 1.88 K/uL (1.2-3.4) 09/12/22 07:06 [place] # (Auto) 1.18 K/uL (0.24-0.82) H 09/12/22 07:06 Eos # (Auto) 0.01 K/uL (0-0.50) 09/12/22 07:06 Baso # (Auto) 0.02 K/uL (0-0.2) 09/12/22 07:06 Immature Gran # (Auto) 0.07 K/uL (0.00-0.02) H 09/12/22 07:06 Sodium 138 mmol/L (136-145) 09/13/22 06:27 Potassium 4.1 mmol/L (3.5-5.1) 09/13/22 06:27 Chloride 101 mmol/L (98-107) 09/13/22 06:27 Carbon Dioxide 33 mmol/L (21-32) H 09/13/22 06:27 Anion Gap 4 (3-11) 09/13/22 06:27 BUN 15 mg/dl (6-23) 09/13/22 06:27 Creatinine 0.69 mg/dl (0.6-1.2) 09/13/22 06:27 Est Cr Clr Drug Dosing 99.0 ml/min 09/13/22 06:27 Est GFR ( Amer) 112.0 ml/min 09/13/22 06:27 Est GFR (Non-Af Amer) 96.6 ml/min 09/13/22 06:27 BUN/Creatinine Ratio 21.7 (10-20) H 09/13/22 06:27 Glucose 104 mg/dl (70-99(Fasting)) H 09/13/22 06:27 POC Glucose 113 mg/dl (70-99) H 09/13/22 08:13 Calcium 8.7 mg/dl (8.5-10.1) 09/13/22 06:27 SARS-CoV-2, RNA, NAAT NEGATIVE (NEGATIVE) 09/11/22 06:00 Impressions Lumbar Spine X-Ray 09/11/22 07:45 FL lumbar spine 2-3V HISTORY: 57 years-old Female L4-L5 DECOMPRESSION AND FUSION COMPARISON: None TECHNIQUE: 2 spot fluoroscopic images of the lumbar spine were obtained utilizing 16.9 seconds fluoroscopy time FINDINGS: Posterior interbody hannah and screw fusion with discectomy at L4-L5. The hardware appears intact. No unexpected residual opaque foreign bodies identified. Multilevel spondylitic spurring. IMPRESSION: Fluoroscopic assistance as above. ACT 112: Negative or not required by law. The above report was generated using voice recognition software. It may contain grammatical, syntax or spelling errors. Electronically signed by: Richard Bowser M.D. 09/11/2022 10:27 AM Medications Administered Current Inpatient Medications Acetaminophen (Acetaminophen 500 Mg Tab) 1,000 mg PO Q8H PRN PRN Reason: MILD Pain Scale 1,2,3 & Pre PT Stop: 10/11/22 11:00 Al Hydrox/Mg Hydrox/Simethicone (Aluminum/Magnesium Susp 30 Ml Udc) 30 ml PO Q6H PRN PRN Reason: Dyspepsia Stop: 10/11/22 11:00 Atorvastatin Calcium (Atorvastatin 20 Mg Tab) 20 mg PO QAM TIGRE Stop: 10/12/22 08:59 Last Admin: 09/13/22 09:35 Dose: 20 mg Bisacodyl (Bisacodyl 10 Mg Supp) 10 mg CO DAILY PRN PRN Reason: Constipation Stop: 10/11/22 11:00 Diphenhydramine HCl (Diphenhydramine Capsule 25 Mg Cap) 25 mg PO Q6H PRN PRN Reason: Allergic Rhinitis/Insomnia Stop: 10/11/22 11:00 Famotidine (Famotidine 20 Mg Tab) 20 mg PO Q12H PRN PRN Reason: Dyspepsia Stop: 10/11/22 11:00 Last Admin: 09/11/22 23:34 Dose: 20 mg Hydromorphone HCl (Hydromorphone Inj 0.5 Mg/0.5 Ml Syr) 0.5 mg IV Q3H PRN PRN Reason: MODERATE Pain (Scale 4,5,6) & Pre PT Stop: 09/25/22 11:00 Hydromorphone HCl (Hydromorphone Inj 1 Mg/Ml Syringe) 1 mg IV Q3H PRN PRN Reason: SEVERE Pain (Scale 7,8,9,10) Stop: 09/25/22 11:00 Hydroxyzine HCl (Hydroxyzine Hcl 25 Mg Tab) 25 mg PO Q8H PRN PRN Reason: Anxiety Stop: 10/11/22 11:00 Promethazine HCl 12.5 mg/ (Sodium Chloride) 50.5 mls @ 202 mls/hr IV Q6H PRN PRN Reason: Nausea &/or Vomiting Stop: 10/11/22 11:00 Dexamethasone 6 mg/ Syringe 1.5 mls @ 1 mls/min IV DAILY TIGRE Stop: 09/14/22 09:02 Last Admin: 09/13/22 09:36 Dose: 1 mls/min Influenza Virus Vaccine Quadrival (Do Not Administer Flu Vaccine) 1 each N/A PRN PRN PRN Reason: Notification Stop: 10/11/22 11:00 Insulin Aspart (Insulin Aspart Per Unit) 0 units SC ACHS [facility] Stop: 10/11/22 11:59 Last Admin: 09/13/22 09:49 Dose: 4 units Insulin Glargine (Lantus Per Unit Charge) 8 units SQ DAILY [facility] Stop: 10/13/22 08:59 Last Admin: 09/13/22 09:49 Dose: 8 units Lorazepam (Lorazepam 0.5 Mg Tab) 0.5 mg PO Q8H PRN PRN Reason: Sedation/Anxiety Stop: 10/11/22 11:00 Lorazepam (Lorazepam 2 Mg/1 Ml Vial) 0.5 mg IV Q8H PRN PRN Reason: Sedation/Anxiety Stop: 10/11/22 11:00 Magnesium Hydroxide (Magnesium Hydroxide Susp 30 Ml Udc) 30 ml PO Q24H PRN PRN Reason: Constipation Stop: 10/11/22 11:00 Last Admin: 09/12/22 05:33 Dose: 30 ml Metformin HCl (Metformin Hcl 500 Mg Tab) 500 mg PO BIDM [facility] Stop: 10/12/22 16:59 Last Admin: 09/13/22 09:35 Dose: 500 mg Metoclopramide HCl (Metoclopramide Hcl Inj 5 Mg/Ml 2 Ml Vial) 10 mg IV Q6H PRN PRN Reason: Nausea &/or Vomiting Stop: 10/11/22 11:00 Miscellaneous (Remove Nicoderm Patch) 1 each N/A DAILY@0859 [facility] Stop: 10/12/22 08:58 Last Admin: 09/13/22 09:36 Dose: 1 each Miscellaneous Information (Pharmacy Glycemic Mgmt Consult) 1 each N/A UD PRN PRN Reason: Consult Stop: 10/11/22 11:00 Naloxone HCl (Naloxone Hcl 0.4 Mg/1 Ml Vial/Carp) 0.1 mg IV Q5M PRN PRN Reason: Oversedation/Resp depression Stop: 10/11/22 11:00 Nicotine (Nicotine 21 Mg/24 Hr Tdsy) 21 mg TD QAM [facility] Stop: 10/11/22 13:14 Last Admin: 09/13/22 09:36 Dose: 21 mg Ondansetron HCl (Ondansetron Inj 2 Mg/Ml 2 Ml Vial) 4 mg IV Q6H PRN PRN Reason: Nausea &/or Vomiting Stop: 10/11/22 11:00 Ondansetron HCl (Ondansetron 4 Mg Od Tab) 4 mg PO Q6H PRN PRN Reason: Nausea Stop: 10/11/22 11:00 Oxycodone HCl (Oxycodone Hcl Ir 5 Mg Tab (Immediate Release)) 5 - 10 mg PO Q4H PRN PRN Reason: Pain & Pre PT Stop: 09/25/22 11:00 Last Admin: 09/13/22 09:53 Dose: 10 mg Pantoprazole Sodium (Pantoprazole 40 Mg Tab) 40 mg PO BID TIGRE Stop: 10/11/22 20:59 Last Admin: 09/13/22 09:35 Dose: 40 mg Pneumococcal Polyvalent Vaccine (Do Not Administer Pneumococcal Vaccine) 1 each N/A PRN PRN PRN Reason: Notification Stop: 10/11/22 11:00 Senna/Docusate Sodium (Docusate Sodium/Senna 50/8.6mg Tab) 2 tab PO HS [facility] Stop: 10/11/22 20:59 Last Admin: 09/12/22 21:14 Dose: 2 tab Sodium Biphosphate/Sodium Phosphate (Sod Phosphate/Sod Biphosphate Enema 132 Ml Btl) 132 ml CO ONE PRN PRN Reason: Constipation Stop: 10/11/22 11:00 Tramadol HCl (Tramadol Hcl 50 Mg Tablet) 50 - 100 mg PO Q4H PRN PRN Reason: Moderate-Severe pain & Pre PT Stop: 10/11/22 11:00 Last Admin: 09/13/22 06:48 Dose: 100 mg
== END 2022-09-13 12:40 | disposition home or self-care (01) | DRG 455 ==
LOC: ASU 05:49 → 3E 09:41 → 3N 09-12 06:25

== ENCOUNTER 2023-01-13 12:33 | Observation (INO) ==
--- NOTE | 2023-01-13 12:51 | Emergency Department Note ---
History of Present Illness General Chief complaint: Back Injury/Pain Stated complaint: HEADACHE, BACK PAIN Time Seen by Provider: 01/13/23 12:46 History of Present Illness Maximum Pain Intensity: 10 This is a 57-year-old female with a history of L-spine surgery in August 2022, GERD, type 2 diabetes that presents to the emergency department via EMS accompanied by son with complaints of "headache, back pain, vomiting". Patient was seen here in the ED yesterday for evaluation of back pain. Back pain started this past Thursday/Thursday and is new. Patient does have a history of lumbar spinal stenosis with spondylolisthesis and neurogenic claudication status post lumbar decompression and bilateral medial facetectomies and foraminotomies L3-L4, L4-L5. She also underwent posterior spinal fusion L4-L5. In addition she had interbody fusion L4-L5. She also had a cage placed at L4-L5. Patient notes ongoing low back pain. While here yesterday she was medicated with analgesia and discharged home on oral analgesics and steroids. While here in the ED yesterday she also underwent MRI of the L-spine. This revealed small laminectomy bed fluid collection. There is also comment of disc bulge at L3-L4 with probable superimposed left foraminal/far left lateral disc protrusion with severe narrowing of the left neural foramen. This could be correlated with left L3 to colopathy. No severe central canal stenosis. Mild multilevel central canal narrowing. No lumbar spine fractures. Today the patient notes that since discharge yesterday she has now developed vomiting followed by headache. She feels pain everywhere in her body. She notes vomiting since awakening today this morning. She tried taking her medication as prescribed without success. She is not able to tolerate food or fluids. She continues to note left-sided lumbar radiculopathy that radiates to the left lower extremity. Low back pain is presently the worst out of all the areas of pain she is experiencing. Current pain 9/10. No chest pain, shortness of breath, fevers or chills. No close contacts with illness. No lower extremity weakness, bowel or bladder incontinence, numbness or tingling in genital region. Patient's son is at bedside. He is concerned that she is dehydrated. They also note a follow-up scheduled this coming with the spine department with the group that performed the patient spine surgery. Home Medications Medication Instructions Recorded Confirmed Type atorvastatin 20 mg tablet 20 mg PO QAM 08/05/22 01/13/23 History metformin 500 mg tablet 500 mg PO BID 08/05/22 01/13/23 History omeprazole 20 mg tablet,delayed 20 mg PO BID 08/05/22 01/13/23 History release prednisone 50 mg tablet 50 mg PO DAILY 3 days #3 tabs 01/12/23 01/13/23 Rx tramadol 50 mg tablet 50 - 100 mg PO Q6H PRN pain #14 01/12/23 01/13/23 Rx tabs Allergies Allergy/AdvReac Type Severity Reaction Status Date / Time gabapentin Allergy Severe SHORT OF Verified 01/13/23 14:55 BREATH, "FELT DRUNK", VOMITING codeine AdvReac Intermediate nausea & Verified 01/13/23 14:55 vomitting medroxyprogesterone AdvReac Intermediate migraines Verified 01/13/23 14:55 [From Depo-Provera] oxycodone AdvReac Intermediate Vomiting Verified 01/13/23 14:55 Past Med/Surg History Medical History 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 No current issues No known ECHO or cardio follow up needed No murmur noted at PAT appt on 08/11/22 Chronic back pain Degenerative disc disease Diabetes mellitus, type 2 NIDDM- glucose well controlled per patient Diabetic gastroparalysis Gastroparesis GERD (gastroesophageal reflux disease) Well controlled and stable Hiatal hernia History of anesthesia reaction Slow to wake up after anesthesia. History of rheumatic fever as a child Hyperlipidemia Migraine hx Motion sickness has used dramamine when on a boat. Nausea and vomiting after administration of anesthetic agent Osteoarthritis Sleep apnea Non-compliant with machine Spinal stenosis Surgical History History of bilateral tubal ligation History of carpal tunnel release right History of section x2 History of cholecystectomy History of colonoscopy History of esophagogastroduodenoscopy (EGD) History of hysterectomy with LSO History of laparoscopy lysis of adhesions S/P epidural steroid injection Family History Other No family history of adverse response to anesthesia Social History Smoking Status: Former smoker Tobacco Type: E-cigarettes / Vaping Cigarettes Per Day: 20 - 25 cigs; Second Hand Exposure: Yes; Hx Alcohol Use: No Hx Substance Use: No Preferred Language: Kyrgyz Communication Ability: Effective Spa Supervisor Required: No Beliefs That Will Affect Care: None Current Living Situation: Alone Feels Safe at Home: Yes Assistive Devices: None Review of Systems A total of 10 systems reviewed and were otherwise negative Physical Exam Vital Signs Vital Signs - 24 hr 01/13/23 12:37 01/13/23 12:37 01/13/23 14:37 Temperature 35.8 C L 36.9 C Temperature Source Temporal Artery Scan Oral Pulse Rate 102 H Pulse Rate [Radial] 84 Respiratory Rate 22 12 Respiratory Effort / Characteristics Non-Labored Respiratory Depth Normal Blood Pressure 133/83 Blood Pressure [Left Arm] 133/79 Blood Pressure Mean 99 Blood Pressure Mean [Left Arm] 97 Blood Pressure Position Sitting Pulse Oximetry 95 98 98 Oxygen Delivery Method Nasal Cannula Nasal Cannula Oxygen Flow Rate 2 2 Sepsis Recent Fever Within 48 Hours No Sepsis New/Unexplained Change in Mental Status No Sepsis Action Taken by Nursing No Action Required VITAL SIGNS - Vital signs and triage nursing notes were reviewed. Mildly tachycardic at 102, otherwise stable. Temperature will be repeated as it was 35.8 on arrival and likely not accurate. GENERAL - 57-year-old female appearing her stated age who is in no acute distress. Communicates well with provider and answers questions appropriately. SKIN - Without rashes. No meningeal or petechial rash. Well-healed surgical incision overlying the L-spine without evidence of dehiscence or surrounding erythema or edema. HEAD - NC/AT. EYES - Sclera anicteric. EARS - No deformities of external structures noted on gross examination bilaterally. NOSE - Midline and without cyanosis. No epistaxis or purulent drainage noted. MOUTH/OROPHARYNX - Without perioral cyanosis. NECK - Neck with FROM. No nuchal rigidity. LUNGS - Chest wall symmetric without accessory muscle use, intercostals retracti ons, or central cyanosis. Normal vesicular breath sounds CTA B/L. No wheezes, rales, or rhonchi appreciated. CARDIAC - RRR with S1/S2. No murmur, rubs, or gallops appreciated. ABDOMEN - Abdominal contour normal without pulsations or visible masses. BS normoactive all four quadrants. No tenderness, palpable masses, hepatosplenomegaly, or ascites noted. MUSCULOSKELETALthere is no reproducible tenderness overlying the L-spine. Patient is able to sit at the edge of the bed but only for a few seconds and then experiences severe spasm to the left lower extremity. EXTREMITIES - No clubbing or peripheral cyanosis. +5/5 strength noted in UE/LE bilaterally. NEUROLOGIC - Cranial nerves II through XII grossly intact. Sensory intact to light touch throughout. Patellar reflexes +2/4. PSYCH - A&O, and cooperates fully with examiner. Pt is very pleasant and interacts well with examiner. Course Administered Medications Sodium Chloride (Nss 1000ml) 1,000 mls @ 125 mls/hr IV .Q8H STA Stop: 01/13/23 22:09 Last Admin: 01/13/23 14:19 Dose: 125 mls/hr Documented By: SOCORRO Discontinued Medications Hydromorphone HCl (Hydromorphone Inj 0.5 Mg/0.5 Ml Syr) 0.5 mg IV NOW STA Stop: 01/13/23 13:00 Last Admin: 01/13/23 13:18 Dose: 0.5 mg Documented By: SOCORRO Hydromorphone HCl (Hydromorphone Inj 0.5 Mg/0.5 Ml Syr) 0.25 mg IV NOW STA Stop: 01/13/23 14:11 Last Admin: 01/13/23 14:20 Dose: 0.25 mg Documented By: SOCORRO Sodium Chloride (Nss 1000ml) 1,000 mls @ 999 mls/hr IV .Q1H1M TIGRE Stop: 01/13/23 14:00 Last Infusion: 01/13/23 15:05 Dose: 0 mls/hr Documented By: Admin: 01/13/23 13:18 Dose: 999 mls/hr Documented By: SOCORRO Ondansetron HCl (Ondansetron Inj 2 Mg/Ml 2 Ml Vial) 4 mg IV NOW STA Stop: 01/13/23 13:00 Last Admin: 01/13/23 13:20 Dose: 4 mg Documented By: SOCORRO Medical Decision Making Laboratory Data 01/13/23 13:23 01/13/23 13:23 Lab Results 01/13/23 01/13/23 01/13/23 Range/Units 13:23 13:23 13:23 WBC 18.73 H (4.8-10.8) K/ul RBC 5.33 (4.20-5.40) M/uL Hgb 15.9 (12.0-16.0) g/dl Hct 46.9 (37.0-47.0) % MCV 88.0 (80.0-100.0) fL MCH 29.8 (25.0-34.0) pg MCHC 33.9 (32.0-36.0) g/dL RDW Std Deviation 42.3 (36.4-46.3) fL RDW Coeff of Tonya 13.1 (11.5-14.5) % Plt Count 233 (130-400) K/uL MPV 10.5 (9.4-12.4) fL Immature Gran % (Auto) 0.6 % Neut % (Auto) 91.6 % Lymph % (Auto) 4.5 % Bryan % (Auto) 3.1 % Eos % (Auto) 0.0 % Baso % (Auto) 0.2 % Neut # (Auto) 17.15 H (1.40-6.50) K/uL Lymph # (Auto) 0.84 L (1.2-3.4) K/uL Bryan # (Auto) 0.58 (0.11-0.59) K/uL Eos # (Auto) 0.00 (0-0.50) K/uL Baso # (Auto) 0.04 (0-0.2) K/uL Immature Gran # (Auto) 0.12 (0.01-0.20) K/uL Sodium 140 (136-145) mmol/L Potassium 4.0 (3.5-5.1) mmol/L Chloride 100 (98-107) mmol/L Carbon Dioxide 29 (21-32) mmol/L Anion Gap 11 (3-11) BUN 18 (6-23) mg/dl Creatinine 0.77 (0.6-1.2) mg/dl Est Cr Clr Drug Dosing 89.0 ml/min Est GFR ( Amer) 99.3 ml/min Est GFR (Non-Af Amer) 85.7 ml/min BUN/Creatinine Ratio 23.4 H (10-20) Glucose 182 H (70-99(Fasting)) mg/dl Calcium 10.0 (8.6-10.3) mg/dl Magnesium 1.8 (1.7-2.4) mg/dl Total Bilirubin 0.4 (0.2-1.0) mg/dl AST 19 (13-39) U/L ALT 56 H (7-52) U/L Alkaline Phosphatase 76 (34-104) U/L Total Protein 8.0 (6.0-8.3) gm/dl Albumin 4.5 (3.4-5.0) gm/dl Globulin 3.5 (2.5-4.0) gm/dl Albumin/Globulin Ratio 1.3 (0.9-2) Lipase 6 L (11-82) U/L Procalcitonin < 0.05 (0-0.5) ng/ml SARS-CoV-2 (PCR) (Negative) Influenza Type A (PCR) (Neg) Influenza Type B (PCR) (Neg) RSV (RT-PCR) (Neg) 01/13/23 Range/Units 14:22 WBC (4.8-10.8) K/ul RBC (4.20-5.40) M/uL Hgb (12.0-16.0) g/dl Hct (37.0-47.0) % MCV (80.0-100.0) fL MCH (25.0-34.0) pg MCHC (32.0-36.0) g/dL RDW Std Deviation (36.4-46.3) fL RDW Coeff of Tonya (11.5-14.5) % Plt Count (130-400) K/uL MPV (9.4-12.4) fL Immature Gran % (Auto) % Neut % (Auto) % Lymph % (Auto) % Bryan % (Auto) % Eos % (Auto) % Baso % (Auto) % Neut # (Auto) (1.40-6.50) K/uL Lymph # (Auto) (1.2-3.4) K/uL Bryan # (Auto) (0.11-0.59) K/uL Eos # (Auto) (0-0.50) K/uL Baso # (Auto) (0-0.2) K/uL Immature Gran # (Auto) (0.01-0.20) K/uL Sodium (136-145) mmol/L Potassium (3.5-5.1) mmol/L Chloride (98-107) mmol/L Carbon Dioxide (21-32) mmol/L Anion Gap (3-11) BUN (6-23) mg/dl Creatinine (0.6-1.2) mg/dl Est Cr Clr Drug Dosing ml/min Est GFR ( Amer) ml/min Est GFR (Non-Af Amer) ml/min BUN/Creatinine Ratio (10-20) Glucose (70-99(Fasting)) mg/dl Calcium (8.6-10.3) mg/dl Magnesium (1.7-2.4) mg/dl Total Bilirubin (0.2-1.0) mg/dl AST (13-39) U/L ALT (7-52) U/L Alkaline Phosphatase (34-104) U/L Total Protein (6.0-8.3) gm/dl Albumin (3.4-5.0) gm/dl Globulin (2.5-4.0) gm/dl Albumin/Globulin Ratio (0.9-2) Lipase (11-82) U/L Procalcitonin (0-0.5) ng/ml SARS-CoV-2 (PCR) NEGATIVE (Negative) Influenza Type A (PCR) Negative (Neg) Influenza Type B (PCR) Negative (Neg) RSV (RT-PCR) Negative (Neg) Imaging Data Radiologist's Impression: Chest X-Ray 01/13/23 14:50 XR chest 1V portable HISTORY: Nausea. Vomiting. COMPARISON: Chest 08/11/2022. FINDINGS: The lungs are clear. Cardiac silhouette is normal in size. No pleural effusions. No pneumothorax. IMPRESSION: No acute process. ACT 112: Negative or not required by law. Electronically signed by: Julio C Hong M.D. 01/13/2023 3:29 PM [facility] Narrative Patient was seen and evaluated as above in room D1. Review was performed of triage nursing notes and vital signs. I did review pertinent previous visits and patient history. After obtaining a thorough history and physical examination the above work up was performed. Patient presents today by EMS for evaluation of low back pain and since discharge yesterday with oral analgesia and steroids is now experiencing vomiting followed by headache. Patient clinically well- appearing and nontoxic on examination but appears to be in pain. Options of care were discussed with the patient. IV access was established. Labs were drawn. Per review of previous visits patient has not tolerated IV Dilaudid well without issue. For pain IV Dilaudid was ordered, for nausea IV Zofran was ordered, she was also hydrated with a liter of normal saline to replenish fluid loss or vomiting. Labs reveal leukocytosis 18.73 which is new from yesterday likely secondary to steroid use and vomiting. No anemia. No emergent metabolic disturbance. Mild hyperglycemia 182. ALT 56. COVID, flu, RSV negative. Lipase normal. I suspect the vomiting is secondary to the oral medications. Patient was medicated here with IV analgesia with some relief. I discussed findings with the refund specialist, Dr. Jett. At this time we will proceed with inpatient management with n.p.o. after midnight for further evaluation and management. Patient amenable to plan of care. Please refer to further documentation regarding her stay. Case discussed with the hospitalist service. Clinically there is no evidence of infection at this time. GCS: 15 In the evaluation and treatment of this patient the following differential diagn osis entertained: Fracture, dislocation, subluxation, cauda equina syndrome, AAA, diverticulitis, appendicitis, torsion, osteomyelitis, piriformis syndrome, strain, sprain, among others. Impression & Plan Intractable low back pain Discharge Plan Visit Data Chief Complaint: Back Injury/Pain Stated Complaint: HEADACHE, BACK PAIN ED Provider: Js Nina ED Midlevel Provider: Leo Voss Discharge Problem: Intractable low back pain Patient Disposition: Admitted As Inpatient Condition: Good Discharge Instructions Interventions: ED Discharge Assessment Last Done: 01/13/23 15:34
[2023-01-13] MEDS ORDERED: ONDANSETRON INJ 2 MG/ML 2 ML VIAL IV STA (12:59)
[2023-01-13] MEDS ORDERED: HYDROmorphone INJ 0.5 MG/0.5 ML SYR IV STA ×2 (12:59→14:10)
[2023-01-13] MEDS ORDERED: SODIUM CHLORIDE 0.9% 1000ML 1,000 ML IV SCH ×2 (13:00→22:09)
[2023-01-13 13:41] LABS: Hematocrit (blood only) 46.9 % (37.0-47.0); Hemoglobin 15.9 g/dl (12.0-16.0); Mean Corpuscular Hemoglobin 29.8 pg (25.0-34.0); Mean Corpuscular Hgb Conc 33.9 g/dL (32.0-36.0); Mean Platelet Volume 10.5 fL (9.4-12.4); Platelet Count 233 K/uL (130-400); RDW Coefficient of Variation 13.1 % (11.5-14.5); RDW Standard Deviation 42.3 fL (36.4-46.3); Red Blood Count 5.33 M/uL (4.20-5.40); White Blood Count 18.73 K/ul (4.8-10.8)
[2023-01-13 13:59] LABS: Albumin Globulin Ratio 1.3 (0.9-2); Albumin Level 4.5 gm/dl (3.4-5.0); BUN Creatinine Ratio 23.4 (10-20); Bilirubin,Total 0.4 mg/dl (0.2-1.0); Est GFR (African American) 99.3 ml/min; Est GFR (Non-African American) 85.7 ml/min; Globulin 3.5 gm/dl (2.5-4.0); Magnesium 1.8 mg/dl (1.7-2.4)
[2023-01-13 14:08] LABS: Basophils # (auto) 0.04 K/uL (0-0.2); Basophils % (auto) 0.2 %; Immature Granulocytes # (auto) 0.12 K/uL (0.01-0.20); Immature Granulocytes % (auto) 0.6 %; Lymphocytes # (auto) 0.84 K/uL (1.2-3.4); Lymphocytes % (auto) 4.5 %; Monocytes # (auto) 0.58 K/uL (0.11-0.59); Monocytes % (auto) 3.1 %; Neutrophils # (auto) 17.15 K/uL (1.40-6.50); Neutrophils % (auto) 91.6 %
[2023-01-13] MEDS: SODIUM CHLORIDE 0.9% 1000ML 1,000 ML IV STA ×2 (14:19→16:32)
[2023-01-13] MEDS ORDERED: FAMOTIDINE 20MG IV PUSH 20 MG/5 ML SYR IV STA (14:25)
[2023-01-13] MEDS ORDERED: FAMOTIDINE 20 MG in SYRINGE 3 ML IV STA (14:25)
[2023-01-13] MEDS ORDERED: PANTOprazole 40 MG in SYRINGE 0 ML IV ONE (14:29)
--- NOTE | 2023-01-13 14:35 | History & Physical Report ---
Date of Service January 13, 2023 Assessment & Plan (1) Intractable low back pain: Plan: suspected 2nd to seroma (surgery last winter w/ Dr Jett) as well as disc bulge at L3-L4 with left foraminal/far left lateral disc protrusion w/ severe narrowing of left neural foramen Exam c/w LEFT L3 radiculopathy No s/sx cauda equina at present. has slightly reduced strength on the LLE compared to the right on exam w/ plantarflexion COVID/RSV/Flu pending Admit med/surg WBC elevation felt reactive from n/v as well as Decadron in ER yesterday/prednisone at home Dr Jett consulted -- will see in AM Per Dr Jett, hold off on IV steroids at this time Protonix IV BID given inability to take PO reported (noting distant hx gastroparesis but hasn't had issues in ~10 years) Pain control/antiemetics prn Dilaudid pain scale, Tylenol avoided given LFTs, no RUQ pain on exam. No alcohol use reported. Did complete 20 day course doxy bid for a facial cellulitis (resolved on exam( Ativan prn spasm. Supp o2 if any drops (in ER placed on after given Dilaudid, currently saturating well on room air) Heating pad Clear liquids as tolerated, advance as tolerated NPO at midnight in case of need for surgical intervention Bowel regimen -- miralax BID as able to take, docusate/senna daily. +BM for the past two days daily. No abdominal pain on exam Check UA/Cx, however denied urinary symptoms at this time CXR/KUB given n/v for further eval PT/OT consults following clearance/eval by Dr Jett in AM DVT proph- SCDs/suyapa peterson. Defer chemoproph in case of need for surgery Monitor labs in AM (2) Nausea and vomiting: Plan: inability to take PO due to n/v from pain, possible ?gastroparesis. Took 20day course DOXY but reported no issues w/ n/v check CXR given o2 use but felt related to pain medications given in ER antiemetics prn (3) Dehydration: Plan: 2nd to poor PO intake/n/v IVF -- will continue NSS @ 80cc/hr once done w/ current bag in ER for dehydration on exam monitor on exam, advance diet as tolerated w/ adequate pain control and PPI BID --> NPO at midnight (4) GERD (gastroesophageal reflux disease): Plan: not taken home meds schedule protonix BID, pepcid x 1 now in ER w/ dose of protonix as hadn't taken her medications this morning (5) Herniated lumbar intervertebral disc: Plan: as above, pain control, OOB w/ assistance dr jett consulted and will see in AM Defer PT/OT evals until see by Dr Jett (6) Tobacco abuse: Plan: smoking cessation recommended (7) Sleep apnea: Plan: non-compliant w/ home machine (8) Hyperlipidemia: Plan: continue statin as able w/ PO intake (9) Diabetes mellitus, type 2: Plan: Last A1c 6.7 in July 2022 Hold home medications metformin 500mg BID while inpatient Check A1c w/ AM labs BSG AC/HS, SSI while inpatient (10) Leukocytosis: Plan: will check procal/ua/cxr but suspect reactive from n/v and steroid use monitor CBC in AM (11) Lumbosacral radiculopathy at L3: Plan npo at midnight History of Present Illness Primary Care Provider: Linda Martini 57-year-old female with a history DM II, HLD, CHASITY, spinal stenosis with surgical hx L-spine surgery in August 2022, GERD, type 2 diabetes that presents to the emergency department via EMS accompanied by son with complaints of "headache, back pain, vomiting". Had not been able to keep her medications down at home. Was seen in the ER 01/12 with acute low back pain with mild elevation of LFT and MRI was obtained which showed significant disc herniation L3 area which was discussed with Dr Jett at that time and felt stable for d/c with close follow up and given IV decadron and pain control and discharged from ER on prednisone. She notes that the pain had been significantly worse on her left back/leg. Had recently completed Doxycycline x 20 days for a facial cellulitis. No recent injury. Had been on tramadol at home for chronic pain. Had been discharged home but has been unable to take any of her PO medications secondary to nausea/vomiting and ongoing pain with headache. No increased LE weakness/bowel or bladder incontinence/numbness or tingling or saddle paresthesias. Son at bedside notes w/ her hx gastroparesis, she hasn't had any issues w/ vomiting in over 10 years. He had been giving her laxatives for bowel movements -- 2 tablets 2 days ago and 1 yesterday. She notes she had BMs following both, more liquid in nature but no blood. No NSAID use. No increased reflux reported but nausea related to pain. No abdominal pain. No shortness of breath. No coffee ground emesis or blood in emesis reported. She does have a mild headache from n/v, poor PO intake. Typically drinks tea/caffeine at baseline but hasn't had due to n/v. Hasn't really been up much since the weekend due to pain. Pain w/ spasms along her lower back w/ radiation to left groin down to the level of the knee but not past that. Increased pain/spasms with sitting up in bed along her lower back bilaterally. Slightly decreased strength with plantarflexion on the left compared to the right, intact bilaterally and equal with dorsiflexion. No prior hx kidney stones or dysuria reported. Of note, hx CHASITY, but does NOT use CPAP. Discussed admission for pain control, NPO at midnight and eval w/ Dr Jett in AM for possible need for surgery. Code status discussed and FULL CODE. Questions/concerns addressed at this time. Allergies Allergy/AdvReac Type Severity Reaction Status Date / Time gabapentin Allergy Severe SHORT OF Verified 01/13/23 14:55 BREATH, "FELT DRUNK", VOMITING codeine AdvReac Intermediate nausea & Verified 01/13/23 14:55 vomitting medroxyprogesterone AdvReac Intermediate migraines Verified 01/13/23 14:55 [From Depo-Provera] oxycodone AdvReac Intermediate Vomiting Verified 01/13/23 14:55 Home Medications Medication Instructions Recorded Confirmed Type atorvastatin 20 mg tablet 20 mg PO QAM 08/05/22 01/13/23 History metformin 500 mg tablet 500 mg PO BID 08/05/22 01/13/23 History omeprazole 20 mg tablet,delayed 20 mg PO BID 08/05/22 01/13/23 History release prednisone 50 mg tablet 50 mg PO DAILY 3 days #3 tabs 01/12/23 01/13/23 Rx tramadol 50 mg tablet 50 - 100 mg PO Q6H PRN pain #14 01/12/23 01/13/23 Rx tabs Past Med/Surg History Medical History 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 No current issues No known ECHO or cardio follow up needed No murmur noted at [facility] appt on 08/11/22 Chronic back pain Degenerative disc disease Diabetes mellitus, type 2 NIDDM- glucose well controlled per patient Diabetic gastroparalysis Gastroparesis GERD (gastroesophageal reflux disease) Well controlled and stable Hiatal hernia History of anesthesia reaction Slow to wake up after anesthesia. History of rheumatic fever as a child Hyperlipidemia Migraine hx Motion sickness has used dramamine when on a boat. Nausea and vomiting after administration of anesthetic agent Osteoarthritis Sleep apnea Non-compliant with machine Spinal stenosis Surgical History History of bilateral tubal ligation History of carpal tunnel release right History of section x2 History of cholecystectomy History of colonoscopy History of esophagogastroduodenoscopy (EGD) History of hysterectomy with LSO History of laparoscopy lysis of adhesions S/P epidural steroid injection Family History Other No family history of adverse response to anesthesia Social History Smoking Status: Current every day smoker Tobacco Type: E-cigarettes / Vaping Cigarettes Per Day: 20 - 25 cigs; Second Hand Exposure: No; Do You Dip or Chew Tobacco: No; Tobacco Cessation Education Requested by Patient: No Hx Alcohol Use: Yes Alcohol type: hard liquor Hx Substance Use: No Preferred Language: Swiss Communication Ability: Effective Engineer Specialist Required: No Beliefs That Will Affect Care: None Current Living Situation: Family Other Information That Helps Us Care for You: No Feels Safe at Home: Yes Safety Concerns: Feels Safe At This Time Assistive Devices: Denture - Upper, Denture - Lower and Glasses Review of Systems Review of Systems: All systems reviewed & are unremarkable except as noted in HPI & below Physical Exam Physical Exam: General: WD obese female laying in bed, son at bedside, NAD at rest but pain/spasm reported with movement. HEENT: head normocephalic, atraumatic, mm slightly dry, trachea midline, thick neck Resp: CTA, slightly diminished in the bases w/ associated crackles, no w/c, on room air CV: RRR, no significant m/r/g, no pitting edema, calves nontender to palpation : no Doyle, no CVA tenderness MSK/Neuro: no facial droop/slurred speech, follows commands +straight leg on the left, increased pain reported with sitting up in bed/movements slightly decreased strength with plantarflexion on the left compared to the right, intact bilaterally and equal with dorsiflexion, pulses palpable Psych: alert/oriented to person/place/time Skin: no obvious rashes/lesions Results & Data Results & Data Vital Signs (Past 12 Hours) Vital Signs Temp Pulse Resp BP Pulse Ox O2 Del Method O2 Flow Rate 01/13/23 12:37 36.9 C 98 Nasal Cannula 2 01/13/23 12:37 35.8 C L 102 H 22 133/83 95 Laboratory Results 01/13/23 01/13/23 01/13/23 Range/Units 14:22 13:23 13:23 WBC 18.73 H (4.8-10.8) K/ul RBC 5.33 (4.20-5.40) M/uL Hgb 15.9 (12.0-16.0) g/dl Hct 46.9 (37.0-47.0) % MCV 88.0 (80.0-100.0) fL MCH 29.8 (25.0-34.0) pg MCHC 33.9 (32.0-36.0) g/dL RDW Std Deviation 42.3 (36.4-46.3) fL RDW Coeff of Tonya 13.1 (11.5-14.5) % Plt Count 233 (130-400) K/uL MPV 10.5 (9.4-12.4) fL Immature Gran % (Auto) 0.6 % Neut % (Auto) 91.6 % Lymph % (Auto) 4.5 % Grand % (Auto) 3.1 % Eos % (Auto) 0.0 % Baso % (Auto) 0.2 % Neut # (Auto) 17.15 H (1.40-6.50) K/uL Lymph # (Auto) 0.84 L (1.2-3.4) K/uL Grand # (Auto) 0.58 (0.11-0.59) K/uL Eos # (Auto) 0.00 (0-0.50) K/uL Baso # (Auto) 0.04 (0-0.2) K/uL Immature Gran # (Auto) 0.12 (0.01-0.20) K/uL Sodium 140 (136-145) mmol/L Potassium 4.0 (3.5-5.1) mmol/L Chloride 100 (98-107) mmol/L Carbon Dioxide 29 (21-32) mmol/L Anion Gap 11 (3-11) BUN 18 (6-23) mg/dl Creatinine 0.77 (0.6-1.2) mg/dl Est Cr Clr Drug Dosing 89.0 ml/min Est GFR ( Amer) 99.3 ml/min Est GFR (Non-Af Amer) 85.7 ml/min BUN/Creatinine Ratio 23.4 H (10-20) Glucose 182 H (70-99(Fasting)) mg/dl Calcium 10.0 (8.6-10.3) mg/dl Magnesium 1.8 (1.7-2.4) mg/dl Total Bilirubin 0.4 (0.2-1.0) mg/dl AST 19 (13-39) U/L ALT 56 H (7-52) U/L Alkaline Phosphatase 76 (34-104) U/L Total Protein 8.0 (6.0-8.3) gm/dl Albumin 4.5 (3.4-5.0) gm/dl Globulin 3.5 (2.5-4.0) gm/dl Albumin/Globulin Ratio 1.3 (0.9-2) Lipase 6 L (11-82) U/L SARS-CoV-2 (PCR) Pending Influenza Type A (PCR) Pending Influenza Type B (PCR) Pending RSV (RT-PCR) Pending Diagnostic Findings FROM ER VISIT 01/12 MRI OF THE LUMBAR SPINE WITHOUT CONTRAST CLINICAL HISTORY: severe LL back pain, prior fusion COMPARISON STUDY: Lumbar spine fluoroscopic images September 11, 2022. TECHNIQUE: Utilizing a 1.5 Oriana magnet and dedicated coil, multiplanar, multiecho imaging of the lumbar spine was performed without IV contrast. FINDINGS: For purposes of numbering on this exam, the L5-S1 disc space is assigned to axial image 23 of 25. There are postoperative findings consistent with L4-L5 discectomy, posterior decompression and bilateral pedicle screw fusion. A small laminectomy bed fluid collection measures 3.9 x 2.1 x 0.9 cm. There is no lumbar spine fracture. No intracanalicular mass or fluid collection. The conus terminates at the L1-L2 level. Slight anterolisthesis of L4 and L5 is noted. Alignment is otherwise anatomic. This study is mildly compromised by artifact due to the surgical hardware. L1-2: The central canal and neural foramen are patent. L2-3: There is mild disc space narrowing with disc bulge. There is mild na rrowing of the central canal and lateral recesses. The neural foramen are patent. L3-4: There is mild disc bulge with facet arthrosis and ligamentous hypertrophy. There is a probable superimposed left foraminal/far left lateral disc protrusion which contacts the exiting left L3 nerve root. There is severe left neural foraminal stenosis at this level. There is moderate right neural foraminal steno sis. There is mild central canal narrowing at this level. L4-5: Discectomy with posterior decompression is noted. There is no Foster with central canal stenosis. The neural foramen are suboptimally assessed by artifact. There is suspected mild to moderate bilateral neural foraminal stenosis. L5-S1: There is mild disc bulge. Central canal is patent. The neural foramen are suboptimally assessed due to artifact. Suspected mild to moderate bilateral neural foraminal stenosis. IMPRESSION: 1. Status post L4-L5 discectomy, posterior decompression and bilateral pedicle screw fusion. Small laminectomy bed fluid collection. Although nonspecific, this probably reflects a seroma. 2. Disc bulge at L3-L4 with probable superimposed left foraminal/far left lateral disc protrusion with severe narrowing of the left neural foramen. This could be correlated with left L3 radiculopathy. 3. No severe central canal stenosis. Mild multilevel central canal narrowing. 4. No lumbar spine fractures. ACT 112: Negative or not required by law. Electronically signed by: Tyson Estrada M.D. 01/12/2023 2:25 PM Dictated:01/12/23 1418 Transcribed: 01/12/23 1418 Supervising Physician Co-Signing Physician Notes I personally saw and examined the patient. I verified all pelaez points and agree with Tracy Swanson PA-C with the following exceptions and/or additions: 57 year old presents to the ER with intractable back pain and L3 distribution pain/numbness O/E HS RRR no murmrs, Chest CTAB, Abdo SNT, L3 distribution numbness and pain exacerbated back pain and L3 pain on straight leg raise A/P Lumbar disc prolapse with L3 radiculopathy - Pain management as above overnight and patient to discuss surgical options with Dr Jett tomorrow. NPO after midnight. Switched IV fluids to LR to avoid hyperchloremic acidosis. Leucocytosis - suspect from recent steroid use, trend Otherwise plan as above PG Care Time/CCT Total # of Minutes Spent Total Time Spent with Patient: Total time spent is greater than 50% in coordination of care (as documented) at patient's floor/unit and/or counseling patient: Coding Level of Care Code 20457 INT INP/OBS CARE 2/55MIN Diagnoses Intractable low back pain M54.59 Nausea and vomiting R11.2 Dehydration E86.0 GERD (gastroesophageal reflux disease) K21.9 Herniated lumbar intervertebral disc M51.26 Tobacco abuse Z72.0 Sleep apnea G47.30 Hyperlipidemia E78.5 Diabetes mellitus, type 2 E11.9 Leukocytosis D72.829 Lumbosacral radiculopathy at L3 M54.17
[2023-01-13 15:27] LABS: Influenza A virus by PCR Negative (Neg); Influenza B virus by PCR Negative (Neg); RSV by PCR Negative (Neg); SARS CoV2 RNA(COVID-19) Ceph NEGATIVE (Negative)
--- NOTE | 2023-01-13 15:31 | XRay Report ---
XR chest 1V portable HISTORY: Nausea. Vomiting. COMPARISON: Chest 08/11/2022. FINDINGS: The lungs are clear. Cardiac silhouette is normal in size. No pleural effusions. No pneumot horax. IMPRESSION: No acute process. ACT 112: Negative or not required by law. Electronically signed by: Julio C Hong M.D. 01/13/2023 3:29 PM
[2023-01-13] MEDS ORDERED: DEXTROSE 50% 50 ML SYRINGE IV PRN (16:01)
[2023-01-13] MEDS ORDERED: GLUCAGON FOR INJ 1 MG VIAL SQ PRN (16:01)
[2023-01-13] MEDS ORDERED: CARBOHYDRATES FOR HYPOGLYCEMIA PO PRN (16:01)
[2023-01-13] MEDS ORDERED: GLUCOSE 10 TAB/TUBE PO PRN (16:01)
[2023-01-13] MEDS ORDERED: ONDANSETRON INJ 2 MG/ML 2 ML VIAL IV PRN (16:01)
[2023-01-13] MEDS ORDERED: GLUCOSE 40% GEL 15 GM TUBE PO PRN (16:01)
[2023-01-13] MEDS ORDERED: ALUMINUM/MAGNESIUM SUSP 30 ML UDC PO PRN (16:01)
--- NOTE | 2023-01-13 16:18 | XRay Report ---
XR KUB/Abdomen 1 view CLINICAL HISTORY: n/v, eval constipation, ?stone TECHNIQUE: 1 view of the abdomen was obtained. Comparison: None available at the time of this dictation. FINDINGS: Cholecystomy clips are seen in the right upper quadrant. Punctate stones are seen projecting over the right kidney. Posterior fixation hardware spans L4-L5. The bowel gas pattern is nonobstructive. Smal l stool burden is seen. IMPRESSION: Nonobstructive appearing stones are noted in the right kidney. No ureteral or pelvic stones are seen. Small stool burden is seen without impaction. ACT 112: Negative or not required by law. Electronically signed by: Nav Calderon M.D. 01/13/2023 4:16 PM
[2023-01-13] MEDS: HYDROmorphone INJ 0.5 MG/0.5 ML SYR IV PRN ×2 (16:33→19:51)
[2023-01-13] MEDS: INSULIN ASPART PER UNIT CHARGE SC SCH ×2 (17:59→21:04)
[2023-01-13 20:20] LABS: Appearance Urine Clear (Clear); Bilirubin Urine Negative (Negative); Blood Urine Negative (Negative); Color Urine Yellow; Glucose Urine UA Trace (Negative); Ketones Urine Negative (Negative); Leukocyte Esterase Urine Negative (Negative); Nitrite Urine Negative (Negative); Protein Urine Negative (Negative); Specific Gravity Urine 1.015 (1.000-1.030); Urobilinogen Urine Negative (Negative); pH Urine 5.5 (4.5-7.5)
[2023-01-13] MEDS: LACTATED RINGER'S 1,000 ML IV SCH (21:05)
[2023-01-13] MEDS: PANTOprazole 40 MG in SYRINGE 0 ML IV SCH (21:06)
[2023-01-13] MEDS: POLYETHYLENE (MIRALAX) 17 GM PACK PO SCH (21:07)
[2023-01-14] MEDS ORDERED: Nursing to Pharmacy Communication SCH ×2 (02:00→12:30)
[2023-01-14] MEDS: HYDROmorphone INJ 0.5 MG/0.5 ML SYR IV PRN ×5 (03:06→18:37)
[2023-01-14] MEDS: LACTATED RINGER'S 1,000 ML IV SCH ×3 (05:06→20:41)
[2023-01-14] MEDS: INSULIN ASPART PER UNIT CHARGE SC SCH ×5 (06:18→21:09)
[2023-01-14 06:58] LABS: Basophils # (auto) 0.04 K/uL (0-0.2); Basophils % (auto) 0.3 %; Eosinophils # (auto) 0.01 K/uL (0-0.50); Eosinophils % (auto) 0.1 %; Hematocrit (blood only) 40.9 % (37.0-47.0); Hemoglobin 13.3 g/dl (12.0-16.0); Immature Granulocytes % (auto) 0.6 %; Lymphocytes % (auto) 18.1 %; Mean Corpuscular Hemoglobin 29.5 pg (25.0-34.0); Mean Corpuscular Hgb Conc 32.5 g/dL (32.0-36.0); Mean Corpuscular Volume 90.7 fL (80.0-100.0); Mean Platelet Volume 10.6 fL (9.4-12.4); Monocytes % (auto) 5.6 %; Neutrophils # (auto) 12.03 K/uL (1.40-6.50); Neutrophils % (auto) 75.3 %; Platelet Count 213 K/uL (130-400); RDW Coefficient of Variation 13.4 % (11.5-14.5); RDW Standard Deviation 44.6 fL (36.4-46.3); Red Blood Count 4.51 M/uL (4.20-5.40); White Blood Count 15.98 K/ul (4.8-10.8)
[2023-01-14] MEDS: PANTOprazole 40 MG in SYRINGE 0 ML IV SCH ×2 (08:42→20:40)
[2023-01-14] MEDS: ATORVASTATIN 20 MG TAB PO SCH (08:42)
[2023-01-14] MEDS: DOCUSATE SODIUM/SENNA 50/8.6MG TAB PO SCH (08:43)
[2023-01-14] MEDS: POLYETHYLENE (MIRALAX) 17 GM PACK PO SCH ×2 (08:43→20:40)
[2023-01-14 09:06] LABS: Albumin Level 3.7 gm/dl (3.4-5.0); BUN Creatinine Ratio 18.9 (10-20); Bilirubin Direct 0.1 mg/dl (0-0.2); Bilirubin,Total 0.4 mg/dl (0.2-1.0); Calcium 8.9 mg/dl (8.6-10.3); Creatinine Clr Calc Pharmacy 94.9 ml/min; Est GFR (African American) 104.2 ml/min; Est GFR (Non-African American) 89.9 ml/min; Magnesium 1.9 mg/dl (1.7-2.4); Potassium 4.1 mmol/L (3.5-5.1); Total Protein 6.5 gm/dl (6.0-8.3)
[2023-01-14 09:13] LABS: Estimated Average Glucose 157 mg/dl; Hemoglobin A1C 7.1 % (4.5-5.6)
--- NOTE | 2023-01-14 09:21 | Orthopedic Consultation ---
Date of Consultation January 14, 2023 Assessment & Plan (1) Lumbosacral radiculopathy at L3: Assessment L3-L4 foraminal extraforaminal disc herniation on the left. Plan I had a long discussion today with the patient and her son reviewing MRI findings and clinical presentation. This time she can continue with medical management possible epidural injections or ultimately surgical intervention. In light of her severe pain and inability to ambulate and requirements for IV narcotics she would very much like to pursue surgical intervention. She understands it would require extending the fusion across L3-L4 level as I would need to remove the entire facet at L3-L4 on the left creating iatrogenic instability. To safely adequately decompress the nerve I would remove the facet to access the foraminal disc herniation. She was subsequently require fusion at L3-L4. Risk benefits pros cons alternatives in detail. This time we will make her n.p.o. after midnight we will plan for surgery tomorrow. History of Present Illness Reason for Consultation: Severe left leg pain with weakness Attending Physician: Jean Brewer History of Present Illness This is a 57-year-old female known to me the presents with severe left leg radiculopathy that began approximately Thursday of last week. She denies any specific trauma fall or event. She was back to work and undergoing light activity when the symptoms began. She describes pain across the back buttock and going into the left groin and anterior thigh. It is incapacitating in nature. Her son was helping her ambulate as her leg would give out when she tries to walk on the left. The right lower extremity is asymptomatic. She was in emergency room Thursday of this week secondary to the pain but was able to go home. Unfortunately pain has not improved despite steroids and oral pain medications and return to the ER yesterday. She was subsequently admitted for pain control.. Patient is requiring IV Dilaudid every 3 hours to control her pain. Allergies Allergy/AdvReac Type Severity Reaction Status Date / Time gabapentin Allergy Severe SHORT OF Verified 01/13/23 14:55 BREATH, "FELT DRUNK", VOMITING codeine AdvReac Intermediate nausea & Verified 01/13/23 14:55 vomitting medroxyprogesterone AdvReac Intermediate migraines Verified 01/13/23 14:55 [From Depo-Provera] oxycodone AdvReac Intermediate Vomiting Verified 01/13/23 14:55 Home Medications Medication Instructions Recorded Confirmed Type atorvastatin 20 mg tablet 20 mg PO QAM 08/05/22 01/13/23 History metformin 500 mg tablet 500 mg PO BID 08/05/22 01/13/23 History omeprazole 20 mg tablet,delayed 20 mg PO BID 08/05/22 01/13/23 History release prednisone 50 mg tablet 50 mg PO DAILY 3 days #3 tabs 01/12/23 01/13/23 Rx tramadol 50 mg tablet 50 - 100 mg PO Q6H PRN pain #14 01/12/23 01/13/23 Rx tabs Patient History Medical History 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 No current issues No known ECHO or cardio follow up needed No murmur noted at PAT appt on 08/11/22 Chronic back pain Degenerative disc disease Diabetes mellitus, type 2 NIDDM- glucose well controlled per patient Diabetic gastroparalysis Gastroparesis GERD (gastroesophageal reflux disease) Well controlled and stable Hiatal hernia History of anesthesia reaction Slow to wake up after anesthesia. History of rheumatic fever as a child Hyperlipidemia Migraine hx Motion sickness has used dramamine when on a boat. Nausea and vomiting after administration of anesthetic agent Osteoarthritis Sleep apnea Non-compliant with machine Spinal stenosis Surgical History History of bilateral tubal ligation History of carpal tunnel release right History of section x2 History of cholecystectomy History of colonoscopy History of esophagogastroduodenoscopy (EGD) History of hysterectomy with LSO History of laparoscopy lysis of adhesions S/P epidural steroid injection Family History Other No family history of adverse response to anesthesia Social History Smoking Status: Current every day smoker Tobacco Type: E-cigarettes / Vaping Cigarettes Per Day: 20 - 25 cigs; Second Hand Exposure: No; Do You Dip or Chew Tobacco: No; Tobacco Cessation Education Requested by Patient: No Hx Alcohol Use: Yes Alcohol type: hard liquor Hx Substance Use: No Preferred Language: [place] Communication Ability: Effective Senior Staff Consultant Required: No Beliefs That Will Affect Care: None Current Living Situation: Family Other Information That Helps Us Care for You: No Feels Safe at Home: Yes Safety Concerns: Feels Safe At This Time Assistive Devices: Denture - Upper, Denture - Lower and Glasses Physical Exam Physical Exam: On exam patient is only comfortable lying completely supine. Even 10 degrees of elevation in the bed reproduces severe radiculopathy down the left leg. She does exhibit bilateral plus 5 out of 5 plantarflexion dorsiflexion quadriceps. Sensory is intact to lower extremities. There is numbness to the left thigh compared to the right. She has 4/5 left quadriceps compared to 5/5 on the right. Results & Data Vital Signs (Past 12 Hours) Vital Signs Temp Pulse Pulse Resp BP Pulse Ox O2 Del Method 01/14/23 07:51 36.6 C 57 L 16 121/73 96 Room Air 01/13/23 21:58 36.4 C L 67 16 111/61 95 Room Air
--- NOTE | 2023-01-14 10:22 | Hospitalist Progress Note ---
Date of Service January 14, 2023 Assessment & Plan (1) Intractable low back pain: Plan: suspected 2nd disc bulge at L3-L4 with left foraminal/far left lateral disc protrusion w/ severe narrowing of left neural foramen - No s/sx cauda equina at present. has slightly reduced strength on the LLE compared to the right on exam - NPO at midnight for planned surgery in AM Bowel regimen -- miralax BID as able to take, docusate/senna daily. +BM for the past two days daily. No abdominal pain on exam Monitor labs in AM (2) Lumbosacral radiculopathy at L3: Plan: NPO at midnight Dr Jett planning on surgery in the AM (3) Nausea and vomiting: Plan: Resolved, tolerated a regular diet today Antiemetics prn (4) GERD (gastroesophageal reflux disease): Plan: Chronic and stable on IV PPI (5) Herniated lumbar intervertebral disc: Plan: as above, pain control, OOB w/ assistance dr jett consulted and plans for surgery in AM NPO at midnight Defer PT/OT evals until see by Dr Jett (6) Tobacco abuse: Plan: smoking cessation recommended (7) Sleep apnea: Plan: non-compliant w/ home machine (8) Hyperlipidemia: Plan: Chronic and stable continue statin as able w/ PO intake (9) Diabetes mellitus, type 2: Plan: Last A1c 6.7 in July 2022 Hold home medications metformin 500mg BID while inpatient Check A1c w/ AM labs BSG AC/HS, SSI while inpatient (10) Leukocytosis: Plan: Likely secondary to steroid use Procal normal, no fever, U/A and CXR normal Plan NPO at midnight PT/OT consults following clearance/eval by Dr Jett in AM DVT proph- SCDs/suyapa peterson. Defer chemoproph. secondary to surgery in AM Admission and Anticipated Discharge Date Admission Date: January 14, 2023 Subjective Patient is awake laying flat in bed. Patient tells me that Dr Jett is planning on surgery tomorrow. She denies any paresthesias, anesthesias, incontinence of bowel or bladder. Any urine or bowel sxs. Last BM was a few days ago, she is taking miralax. Review of Systems Review of Systems: denies any chest pain, SOB, nausea, vomiting, abdominal pain, cough, fever, chills. She admits to occasional constipation and will take Ex lax at home. She admits to LBP that radiates to the left groin and down the left leg at times. She admits to increased pain with movement and bending. Better with laying flat. All other ROS negative unless stated + above Physical Exam Constitutional: WD/WN, vitals as above Pateint is laying flat in bed and appears uncomfortable Neck: trachea midline, no thyromegaly Respiratory: normal respiratory effort, lungs clear to auscultation Cardiovascular: RRR, no murmur, no edema Gastrointestinal (Abdomen): normal bowel sounds, soft, nontender, no hepatosplenomegaly Musculoskeletal: Pain with any elevation of bed. DTRs +2 symmetric, mild decrease strength left leg compared to the right. Intact sensation bilateral feet, pulses normal bilaterally. mild decreased sensation to left thigh Skin: no rashes, warm and dry Psychiatric: A+Ox3, euthymic affect Results & Data Results & Data Vital Signs (Past 12 Hours) Vital Signs Temp Pulse Resp BP Pulse Ox O2 Del Method 01/14/23 07:51 36.6 C 57 L 16 121/73 96 Room Air Laboratory Results Abnormal lab results 01/13/23 01/13/23 01/13/23 Range/Units 13:23 13:23 17:45 WBC 18.73 H (4.8-10.8) K/ul Neut # (Auto) 17.15 H (1.40-6.50) K/uL Lymph # (Auto) 0.84 L (1.2-3.4) K/uL [place] # (Auto) (0.11-0.59) K/uL BUN/Creatinine Ratio 23.4 H (10-20) Glucose 182 H (70-99(Fasting)) mg/dl POC Glucose 158 H (70-99) mg/dl Hemoglobin A1c (4.5-5.6) % ALT 56 H (7-52) U/L Lipase 6 L (11-82) U/L Urine Glucose (UA) (Negative) 01/13/23 01/13/23 01/14/23 Range/Units 20:41 Unknown 06:08 WBC (4.8-10.8) K/ul Neut # (Auto) (1.40-6.50) K/uL Lymph # (Auto) (1.2-3.4) K/uL [place] # (Auto) (0.11-0.59) K/uL BUN/Creatinine Ratio (10-20) Glucose (70-99(Fasting)) mg/dl POC Glucose 200 H 116 H (70-99) mg/dl Hemoglobin A1c (4.5-5.6) % ALT (7-52) U/L Lipase (11-82) U/L Urine Glucose (UA) Trace H (Negative) 01/14/23 01/14/23 01/14/23 Range/Units 06:22 06:22 06:22 WBC 15.98 H (4.8-10.8) K/ul Neut # (Auto) 12.03 H (1.40-6.50) K/uL Lymph # (Auto) (1.2-3.4) K/uL [place] # (Auto) 0.90 H (0.11-0.59) K/uL BUN/Creatinine Ratio (10-20) Glucose 116 H (70-99(Fasting)) mg/dl POC Glucose (70-99) mg/dl Hemoglobin A1c 7.1 H (4.5-5.6) % ALT (7-52) U/L Lipase (11-82) U/L Urine Glucose (UA) (Negative) PG Care Time/CCT Total # of Minutes Spent Total Time Spent with Patient: Total time spent is greater than 50% in coordination of care (as documented) at patient's floor/unit and/or counseling patient: Coding Level of Care Code 64492 SUB INP/OBS CARE 2/35MIN Diagnoses Intractable low back pain M54.59 Lumbosacral radiculopathy at L3 M54.17 Nausea and vomiting R11.2 GERD (gastroesophageal reflux disease) K21.9 Herniated lumbar intervertebral disc M51.26 Tobacco abuse Z72.0 Sleep apnea G47.30 Hyperlipidemia E78.5 Diabetes mellitus, type 2 E11.9 Leukocytosis D72.829
[2023-01-14] MEDS: LORazepam 0.5 MG TAB PO PRN (17:39)
[2023-01-15] MEDS ORDERED: Nursing to Pharmacy Communication SCH ×2 (03:30→10:45)
[2023-01-15] MEDS: HYDROmorphone INJ 0.5 MG/0.5 ML SYR IV PRN ×3 (04:15→21:04)
[2023-01-15] MEDS: LACTATED RINGER'S 1,000 ML IV SCH ×2 (04:18→12:39)
[2023-01-15] MEDS ORDERED: INSULIN ASPART PER UNIT CHARGE SC SCH (06:00)
[2023-01-15 06:25] LABS: BUN Creatinine Ratio 18.5 (10-20); Calcium 8.7 mg/dl (8.6-10.3); Creatinine Clr Calc Pharmacy 86.7 ml/min; Est GFR (African American) 93.4 ml/min; Est GFR (Non-African American) 80.6 ml/min; Magnesium 1.9 mg/dl (1.7-2.4); Potassium 3.8 mmol/L (3.5-5.1)
[2023-01-15 06:41] LABS: Hematocrit (blood only) 38.1 % (37.0-47.0); Hemoglobin 12.8 g/dl (12.0-16.0); Mean Corpuscular Hemoglobin 30.2 pg (25.0-34.0); Mean Corpuscular Hgb Conc 33.6 g/dL (32.0-36.0); Mean Corpuscular Volume 89.9 fL (80.0-100.0); Mean Platelet Volume 10.9 fL (9.4-12.4); Platelet Count 179 K/uL (130-400); RDW Coefficient of Variation 13.1 % (11.5-14.5); RDW Standard Deviation 42.7 fL (36.4-46.3); Red Blood Count 4.24 M/uL (4.20-5.40); White Blood Count 8.17 K/ul (4.8-10.8)
[2023-01-15] MEDS ORDERED: MIDAZOLAM HCL 1 MG/ML 2ML VIAL ONE (07:04)
[2023-01-15] MEDS ORDERED: fentaNYL citrate PF 100 MCG/2 ML VIAL ONE (07:04)
[2023-01-15] MEDS: PANTOprazole 40 MG in SYRINGE 0 ML IV SCH (07:53)
[2023-01-15] MEDS: ATORVASTATIN 20 MG TAB PO SCH (07:54)
[2023-01-15] MEDS: POLYETHYLENE (MIRALAX) 17 GM PACK PO SCH ×2 (08:09→21:06)
[2023-01-15] MEDS: DOCUSATE SODIUM/SENNA 50/8.6MG TAB PO SCH (08:11)
--- NOTE | 2023-01-15 09:04 | Orthopedic Progress Note ---
Date of Service January 15, 2023 Assessment & Plan (1) Herniated lumbar intervertebral disc: Plan: Patient reports her back and left lower extremity pain is greatly improved. Planned surgical procedure has been canceled. I have placed a pain management consult in. Ambulate ad emili. Continue with current pain regimen. Diet has been ordered for today Admission and Anticipated Discharge Date Admission Date: January 14, 2023 Subjective Edel reports that her left lower extremity pain is greatly improved. Back pain is also improved. She would therefore like to cancel her scheduled procedure today. She is up and ambulatory to the restroom. Denies any bowel or bladder changes. She is requesting consultation with pain management for injection. She seen Dr. Tonia santiago in the past for injections. Review of Systems Review of Systems: All systems reviewed & are unremarkable except as noted in HPI & below Physical Exam Physical Exam: She is lying in bed in no acute distress Alert and oriented x3 Strength intact bilateral lower extremities Results & Data Vital Signs (Past 12 Hours) Vital Signs Temp Pulse Pulse Resp BP Pulse Ox O2 Del Method 01/15/23 07:31 36.7 C 65 16 153/85 H 96 Room Air 01/14/23 22:22 36.9 C 56 L 14 130/77 93 Room Air
[2023-01-15] MEDS: INSULIN ASPART PER UNIT CHARGE SC SCH ×3 (12:43→21:07)
--- NOTE | 2023-01-15 17:21 | Hospitalist Progress Note ---
Date of Service January 15, 2023 Assessment & Plan (1) Intractable low back pain: Plan: suspected 2nd disc bulge at L3-L4 with left foraminal/far left lateral disc protrusion w/ severe narrowing of left neural foramen - No s/sx cauda equina at present, today stength +5 bilaterally - tolerating diet Bowel regimen -- miralax BID as able to take, docusate/senna daily. +BM for the past two days daily. No abdominal pain on exam Await pain management consult (2) Lumbosacral radiculopathy at L3: Plan: Patient was planned for surgery today with Dr Jett but patient cancelled this AM and asked to have pain management consult for possible injection (3) Nausea and vomiting: Plan: Resolved, tolerated a regular diet today Antiemetics prn (4) GERD (gastroesophageal reflux disease): Plan: Chronic and stable Protonix 40mg BID (5) Herniated lumbar intervertebral disc: Plan: as above, pain control, OOB w/ assistance dr jett consulted recommended surgery and patient cancelled and asked for pain management for possible injections PT/OT eval Await pain management consult (6) Tobacco abuse: Plan: smoking cessation recommended (7) Sleep apnea: Plan: non-compliant w/ home machine (8) Hyperlipidemia: Plan: Chronic and stable continue statin as able w/ PO intake (9) Diabetes mellitus, type 2: Plan: HgbA1C 7.1 Hold home medications metformin 500mg BID while inpatient BSG AC/HS, SSI while inpatient (10) Leukocytosis: Plan: Resolved, was Likely secondary to steroid use Procal normal, no fever, U/A and CXR normal Plan await pain management consult PT/OT DVT proph- SCDs/suyapa peterson. Defer chemoproph. secondary to surgery in AM Admission and Anticipated Discharge Date Admission Date: January 14, 2023 Supervising Physician Co-Signing Physician Notes Attending Attestation - Chart reviewed, care plan d/w CLAUDIO Gallegos. I agree w/ the pelaez components of her documentation. Mihir Knowles MD Subjective Patient states that her left lower extremity pain is much improved and the back pain also has eased up some. She states she cancelled her surgery today. She states she told ortho that she wasnted to have injections instead of surgery and they consulted pain management. She states she had spine injections last year with Dr De Luna. Denies any bowel or bladder changes. Review of Systems Review of Systems: denies any chest pain, SOB, nausea, vomiting, abdominal pain, cough, fever, chills. She admits to occasional constipation and will take Ex lax at home. She admits to LBP that radiates to the left groin and down the left leg at times. She admits to increased pain with movement and bending. Better with laying flat. All other ROS negative unless stated + above Physical Exam Constitutional: WD/WN, vitals as above Neck: trachea midline, no thyromegaly Respiratory: normal respiratory effort, lungs clear to auscultation Cardiovascular: RRR, no murmur, no edema Gastrointestinal (Abdomen): normal bowel sounds, soft, nontender, no hepatosplenomegaly Musculoskeletal: +5/5 strength bilateral lower legs, intact sensation bilaterally Skin: no rashes, warm and dry Psychiatric: A+Ox3, euthymic affect Results & Data Results & Data Vital Signs (Past 12 Hours) Vital Signs Temp Pulse Resp BP Pulse Ox O2 Del Method 01/15/23 14:43 36.6 C 66 16 156/89 H 95 Room Air 01/15/23 07:31 36.7 C 65 16 153/85 H 96 Room Air Laboratory Results Abnormal lab results 01/14/23 01/15/23 01/15/23 Range/Units 21:04 05:47 06:00 Carbon Dioxide 34 H (21-32) mmol/L Glucose 139 H (70-99(Fasting)) mg/dl POC Glucose 136 H 138 H (70-99) mg/dl 01/15/23 01/15/23 Range/Units 11:53 17:06 Carbon Dioxide (21-32) mmol/L Glucose (70-99(Fasting)) mg/dl POC Glucose 154 H 130 H (70-99) mg/dl PG Care Time/CCT Total # of Minutes Spent Total Time Spent with Patient: Total time spent is greater than 50% in coordination of care (as documented) at patient's floor/unit and/or counseling patient: Coding Level of Care Code 92416 SUB INP/OBS CARE 2/35MIN Diagnoses Intractable low back pain M54.59 Lumbosacral radiculopathy at L3 M54.17 Nausea and vomiting R11.2 GERD (gastroesophageal reflux disease) K21.9 Herniated lumbar intervertebral disc M51.26 Tobacco abuse Z72.0 Sleep apnea G47.30 Hyperlipidemia E78.5 Diabetes mellitus, type 2 E11.9 Leukocytosis D72.829
[2023-01-15] MEDS ORDERED: BACLOFEN 10 MG TAB PO ONE (19:24)
[2023-01-15] MEDS: PANTOprazole 40 MG TAB PO SCH (21:08)
[2023-01-16] MEDS: HYDROmorphone INJ 0.5 MG/0.5 ML SYR IV PRN ×4 (01:25→23:36)
[2023-01-16] MEDS: PANTOprazole 40 MG TAB PO SCH ×2 (08:23→21:02)
[2023-01-16] MEDS: ATORVASTATIN 20 MG TAB PO SCH (08:23)
[2023-01-16] MEDS: INSULIN ASPART PER UNIT CHARGE SC SCH ×4 (08:24→21:01)
[2023-01-16] MEDS: POLYETHYLENE (MIRALAX) 17 GM PACK PO SCH ×2 (08:29→21:02)
[2023-01-16] MEDS: DOCUSATE SODIUM/SENNA 50/8.6MG TAB PO SCH (08:29)
[2023-01-16] MEDS ORDERED: ACETAMINOPHEN 325 MG TAB PO PRN (10:47)
--- NOTE | 2023-01-16 11:12 | Orthopedic Progress Note ---
Date of Service January 16, 2023 Assessment & Plan (1) Lumbosacral radiculopathy at L3: Plan: At this time she is awaiting consultation with interventional pain management she would like to trial at course of epidural injections to see if her symptoms can resolve. We will continue to follow her as needed. Admission and Anticipated Discharge Date Admission Date: January 14, 2023 Subjective Patient still struggling with left L3 radiculopathy though she is improving with ambulation. Prolonged sitting is still limited. She is denying any gross strength deficit at this time. Physical Exam Physical Exam: On exam patient still prefers to lie supine. She has reasonable strength testing lower extremities. Results & Data Vital Signs (Past 12 Hours) Vital Signs Temp Pulse Pulse Resp BP BP Pulse Ox 01/16/23 07:47 36.3 C L 69 14 140/70 95 01/15/23 23:40 36.5 C 60 16 146/88 H 95 O2 Del Method 01/16/23 07:47 Room Air 01/15/23 23:40 Room Air
--- NOTE | 2023-01-16 11:49 | Pain Management Consultation ---
Date of Consultation January 16, 2023 Assessment & Plan (1) Lumbosacral radiculopathy at L3: (2) Herniated lumbar intervertebral disc: (3) Diabetes mellitus, type 2: Plan 1. Will initiate Medrol Dosepak. Side effects versus benefits discussed. Discussed blood glucose elevations and patient verbalized understanding. 2. We will initiate baclofen 10 mg 3 times daily scheduled dosing. Side effects versus benefits discussed. 3. We discussed pursuing a left L3-4 transforaminal SANDRA at length. Side effects versus benefits of the procedure were discussed. All of her questions were answered. We will plan to complete the procedure in the outpatient pain clinic on 01/19/2023 at 1330. Patient will be contacted regarding preprocedural instructions. Hospitalist team was updated. 4. Patient may continue with tramadol for as needed breakthrough pain and hydromorphone for pain not well controlled with tramadol or with any planned activity as prescribed by hospitalist team 5. Patient will be seen in outpatient clinic on 01/19/2023. Pain service will sign off on patient at this time. History of Present Illness Reason for Consultation: Lumbar radiculopathy, herniated lumbar disc Requesting Physician: Laura Polanco PA-C Attending Physician: Mihir Knowles MD History of Present Illness Mrs. Daniels is a 57-year-old white female who was admitted due to intractable left-sided low back and lower extremity radicular pattern pain traveling to the medial and anterior thigh stopping above the knee. Patient reported onset of her pain approximate 1 week ago without known injury. She does have history of prior L4-5 laminectomy and fusion per Dr. Jett in August 2022. She did experience symptomatic improvement after surgical procedure. Her pain is not same in location or characteristic at this time as it was prior to the surgical procedure. Her current pain is 50% axial 50% radicular. She is describing sharp, burning, shooting and spasming characteristic pain. She reports her only comfort position is lying supine and still. Her pain escalates significantly with any standing, walking or sitting activities. Patient rates her pain a 2-10 /10. Patient is describing some weakness of left lower extremity associated with pain response to movement. She denies any radicular pattern pain below the level of the, footdrop or falling. She denies bowel or bladder incontinence. Patient has no right lower extremity radicular pattern pain complaints. Surgical intervention was discussed upon this admission but patient was concerned about another surgery within 5 months of her most recent lumbar spine surgery. She is wishing to discuss interventional treatment options prior to pursuing any further surgical intervention. Plan of care discussed with Dr. Jennifer Stewart. Pain Assessment Full Body Front + Back: 1. Left lumbosacral and gluteal region-radicular pattern 2. Anterior/medial thigh radicular pattern pain-L3 distribution Pain scale - at its best (0-10): 2 Pain scale - at its worst (0-10): 10 Allergies Allergy/AdvReac Type Severity Reaction Status Date / Time gabapentin Allergy Severe SHORT OF Verified 01/13/23 14:55 BREATH, "FELT DRUNK", VOMITING codeine AdvReac Intermediate nausea & Verified 01/13/23 14:55 vomitting medroxyprogesterone AdvReac Intermediate migraines Verified 01/13/23 14:55 [From Depo-Provera] oxycodone AdvReac Intermediate Vomiting Verified 01/13/23 14:55 Home Medications Medication Instructions Recorded Confirmed Type atorvastatin 20 mg tablet 20 mg PO QAM 08/05/22 01/13/23 History metformin 500 mg tablet 500 mg PO BID 08/05/22 01/13/23 History omeprazole 20 mg tablet,delayed 20 mg PO BID 08/05/22 01/13/23 History release prednisone 50 mg tablet 50 mg PO DAILY 3 days #3 tabs 01/12/23 01/13/23 Rx tramadol 50 mg tablet 50 - 100 mg PO Q6H PRN pain #14 01/12/23 01/13/23 Rx tabs Pain History Pain Intensity Pain scale - at its best (0-10): 2 Pain scale - at its worst (0-10): 10 Patient History Medical History 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 No current issues No known ECHO or cardio follow up needed No murmur noted at PAT appt on 08/11/22 Chronic back pain Degenerative disc disease Diabetes mellitus, type 2 NIDDM- glucose well controlled per patient Diabetic gastroparalysis Gastroparesis GERD (gastroesophageal reflux disease) Well controlled and stable Hiatal hernia History of anesthesia reaction Slow to wake up after anesthesia. History of rheumatic fever as a child Hyperlipidemia Migraine hx Motion sickness has used dramamine when on a boat. Nausea and vomiting after administration of anesthetic agent Osteoarthritis Sleep apnea Non-compliant with machine Spinal stenosis Surgical History History of bilateral tubal ligation History of carpal tunnel release right History of section x2 History of cholecystectomy History of colonoscopy History of esophagogastroduodenoscopy (EGD) History of hysterectomy with LSO History of laparoscopy lysis of adhesions S/P epidural steroid injection Family History Other No family history of adverse response to anesthesia Social History Smoking Status: Current every day smoker Tobacco Type: E-cigarettes / Vaping Cigarettes Per Day: 20 - 25 cigs; Second Hand Exposure: No; Do You Dip or Chew Tobacco: No; Hx Alcohol Use: Yes Alcohol type: hard liquor Hx Substance Use: No Preferred Language: Yoruba Communication Ability: Effective Collector Required: No Beliefs That Will Affect Care: None Current Living Situation: Family Feels Safe at Home: Yes Assistive Devices: Walker Physical Exam Physical Exam: General: Patient lying supine in exam room in no acute distress. Speech and thought process appropriate. Mood and affect appropriate. Cognition intact. Head: Normocephalic and atraumatic. ENT: No evidence of nasal or oral mucosal lesions. Mucous membranes are moist. Eyes: Pupils equal round reactive to light. Neck: Supple without adenopathy and full range of motion. Chest: Nontender to palpation of the costosternal junction. Abdomen: Soft and nondistended. No organomegaly. Bowel sounds active. Back/spine: Patient able to logroll towards the left side for physical examina tion. Patient has a well-healed midline surgical incision over the mid and lower lumbar spine. Nontender over the midline. No focal facet or SI joint tenderness. Patient moderately tender over the left quadratus lumborum near iliac crest and superior/lateral gluteal region to direct palpation. No appreciable spasm or myoneural trigger point. Lower extremities: SLR negative bilaterally. Strength testing 4/5 in the left with resisted hip flexion and 5/5 on the right. All other strength noted to be 5/5 and equal bilaterally. Hips nontender with internal/external rotation. Sensation intact distally. No appreciable edema of the ankle or pretibial region. Neurologic: Cranial nerves grossly intact. Ambulatory function not witnessed. Results (Pain Clinic) Diagnostic Review MRI Findings: [place], [place] [phone] Magnetic Resonance Report Patient:ДМИТРИЙ DANIELS Admit Date:01/12/23 MR#:[id number] Address1:[address] [place] [address] Acct ID:[id number] Address2: Date:1965 [facility] Zip:[place] [address] Age:57 Location:ED Sex:F Room/Bed: Att Phy: Diagnosis:HIP DISLOCATION Erlinda Phy:Linda Martini M.D. Service Date:01/12/23 Fam Phy: Interpreting Phy:Tyson Estrada MDAdmit Phy: Ordering Phy:Matteo Henry MD cc: ~ MRI OF THE LUMBAR SPINE WITHOUT CONTRAST CLINICAL HISTORY: severe LL back pain, prior fusion COMPARISON STUDY: Lumbar spine fluoroscopic images September 11, 2022. TECHNIQUE: Utilizing a 1.5 Oriana magnet and dedicated coil, multiplanar, multiecho imaging of the lumbar spine was performed without IV contrast. FINDINGS: For purposes of numbering on this exam, the L5-S1 disc space is assigned to axial image 23 of 25. There are postoperative findings consistent with L4-L5 discectomy, posterior decompression and bilateral pedicle screw fusion. A small laminectomy bed fluid collection measures 3.9 x 2.1 x 0.9 cm. There is no lumbar spine fracture. No intracanalicular mass or fluid collection. The conus terminates at the L1-L2 level. Slight anterolisthesis of L4 and L5 is noted. Alignment is otherwise anatomic. This study is mildly compromised by artifact due to the surgical hardware. L1-2: The central canal and neural foramen are patent. L2-3: There is mild disc space narrowing with disc bulge. There is mild narrowing of the central canal and lateral recesses. The neural foramen are patent. L3-4: There is mild disc bulge with facet arthrosis and ligamentous hypertrophy. There is a probable superimposed left foraminal/far left lateral disc protrusion which contacts the exiting left L3 nerve root. There is severe left neural foraminal stenosis at this level. There is moderate right neural foraminal stenosis. There is mild central canal narrowing at this level. L4-5: Discectomy with posterior decompression is noted. There is no Foster with central canal stenosis. The neural foramen are suboptimally assessed by artifact. There is suspected mild to moderate bilateral neural foraminal stenosis. L5-S1: There is mild disc bulge. Central canal is patent. The neural foramen are suboptimally assessed due to artifact. Suspected mild to moderate bilateral neural foraminal stenosis. IMPRESSION: 1. Status post L4-L5 discectomy, posterior decompression and bilateral pedicle screw fusion. Small laminectomy bed fluid collection. Although nonspecific, this probably reflects a seroma. 2. Disc bulge at L3-L4 with probable superimposed left foraminal/far left lateral disc protrusion with severe narrowing of the left neural foramen. This could be correlated with left L3 radiculopathy. 3. No severe central canal stenosis. Mild multilevel central canal narrowing. 4. No lumbar spine fractures. ACT 112: Negative or not required by law. Electronically signed by: Tyson Estrada M.D. 01/12/2023 2:25 PM Dictated:01/12/23 1418 Transcribed: 01/12/23 1418
[2023-01-16] MEDS ORDERED: BACLOFEN 10 MG TAB PO ONE (12:55)
--- NOTE | 2023-01-16 14:11 | Hospitalist Progress Note ---
Date of Service January 16, 2023 Assessment & Plan (1) Intractable low back pain: Plan: suspected 2nd disc bulge at L3-L4 with left foraminal/far left lateral disc protrusion w/ severe narrowing of left neural foramen - No s/sx cauda equina at present, today stength +5 bilaterally - tolerating diet Bowel regimen -- miralax BID as able to take, docusate/senna daily. +BM for the past three days daily. Offered a suppository but patient refused, she states she does not move her bowels daily. No abdominal pain on exam Pain management consulted and plan for an injection ThursdayJanuary 19 at 13:[address] Jose Ortiz via tiger text and the phone. They also are starting a medrol dose pack and scheduled muscle relaxors Possibly patient may be able to be discharged home over the weekend if improves. Otherwise will need discharged home Thursday AM to go to pain management Thursday afternoon. (2) Lumbosacral radiculopathy at L3: Plan: Patient was planned for surgery 01/15/[address] Jett but patient cancelled the surgery the AM of and asked to have pain management consult for possible injections instead. See above communication with pain management (3) Nausea and vomiting: Plan: Resolved, tolerated a regular diet today Antiemetics prn (4) GERD (gastroesophageal reflux disease): Plan: Chronic and stable Protonix 40mg BID (5) Herniated lumbar intervertebral disc: Plan: as above, pain control, OOB w/ assistance dr jett consulted recommended surgery and patient cancelled and asked for pain management for possible injections PT/OT eval See above pain management consult Patient requesting some Tramadol as needed for pain Added Tramadol 50mg q 6H as needed and IV dilaudid only for severe pain (6) Tobacco abuse: Plan: smoking cessation recommended (7) Sleep apnea: Plan: non-compliant w/ home machine (8) Hyperlipidemia: Plan: Chronic and stable continue statin as able w/ PO intake (9) Diabetes mellitus, type 2: Plan: HgbA1C 7.1 Hold home medications metformin 500mg BID while inpatient BSG AC/HS, SSI while inpatient (10) Leukocytosis: Plan: Resolved, was Likely secondary to steroid use Procal normal, no fever, U/A and CXR normal Plan PT/OT DVT proph- SCDs/suyapa hose. Defer chemoproph. secondary to surgery in AM Admission and Anticipated Discharge Date Admission Date: January 14, 2023 Supervising Physician Co-Signing Physician Notes Attending Attestation - Chart reviewed, care plan d/w CLAUDIO Gallegos. I agree w/ the pelaez components of her documentation. Leukocytosis was likely 2nd to steroids. WBC count has normalized. Afebrile. Cont plan for lumbar steroid injection by pain management on 01/19. Mihir Knowles MD Subjective Patient states she is having some improvement in her L3 radiculopathy but still having trouble with long periods of sitting. She feels fine laying flat or standing. She has been able to get up and to the bathroom when needed. Patient states she is anxious to see if she can get an injection and hoping to get some relief in her pain. Review of Systems Review of Systems: denies any chest pain, SOB, nausea, vomiting, abdominal pain, cough, fever, chills. She admits to occasional constipation and will take Ex lax at home. She admits to LBP that radiates to the left groin and down the left leg at times. She admits to increased pain with movement and bending. Better with laying flat. All other ROS negative unless stated + above Physical Exam Constitutional: WD/WN, vitals as above Neck: trachea midline, no thyromegaly Respiratory: normal respiratory effort, lungs clear to auscultation Cardiovascular: RRR, no murmur, no edema Gastrointestinal (Abdomen): normal bowel sounds, soft, nontender, no hepatosplenomegaly Skin: no rashes, warm and dry Psychiatric: A+Ox3, euthymic affect Results & Data Results & Data Vital Signs (Past 12 Hours) Vital Signs Temp Pulse Resp BP Pulse Ox O2 Del Method 01/16/23 07:47 36.3 C L 69 14 140/70 95 Room Air PG Care Time/CCT Total # of Minutes Spent Total Time Spent with Patient: Total time spent is greater than 50% in coordination of care (as documented) at patient's floor/unit and/or counseling patient: Coding Level of Care Code 90417 SUB INP/OBS CARE 2/35MIN Diagnoses Intractable low back pain M54.59 Lumbosacral radiculopathy at L3 M54.17 Nausea and vomiting R11.2 GERD (gastroesophageal reflux disease) K21.9 Herniated lumbar intervertebral disc M51.26 Tobacco abuse Z72.0 Sleep apnea G47.30 Hyperlipidemia E78.5 Diabetes mellitus, type 2 E11.9 Leukocytosis D72.829
[2023-01-16] MEDS ORDERED: methylPREDNISolone 4 MG TAB, 6 DAY TAPER PO SCH (14:30)
[2023-01-16] MEDS: traMADol HCL 50 MG TABLET PO PRN (15:39)
[2023-01-16] MEDS: methylPREDNISolone 4 MG TAB PO SCH ×4 (15:39→21:02)
[2023-01-16] MEDS: BACLOFEN 10 MG TAB PO SCH (21:01)
[2023-01-17] MEDS: methylPREDNISolone 4 MG TAB PO SCH ×3 (05:43→17:26)
--- NOTE | 2023-01-17 07:59 | Hospitalist Progress Note ---
Date of Service January 17, 2023 Assessment & Plan (1) Intractable low back pain: Plan: acute on chronic , moderate risk suspected 2nd disc bulge at L3-L4 with left foraminal/far left lateral disc protrusion w/ severe narrowing of left neural foramen seen on MRI 01/12 - no neurological compromises, pt was planned for surgery 01/15 but canceled in favor of attempts of pain management injections Pain management consulted and plan for an injection ThursdayJanuary 19 at 13:30 medrol and scheduled baclofen (2) GERD (gastroesophageal reflux disease): Plan: Chronic and stable Protonix 40mg BID (3) Tobacco abuse: Plan: chronci smoking cessation recommended (4) Sleep apnea: Plan: chronic non-compliant w/ home machine (5) Diabetes mellitus, type 2: Plan: chronic and stable HgbA1C 7.1 Hold home medications metformin 500mg BID while inpatient BSG AC/HS, SSI while inpatient Plan PT/OT DVT proph- SCDs/suyapa hose. Defer chemoproph. With possibility of upcoming injection Admission and Anticipated Discharge Date Admission Date: January 14, 2023 Subjective Patient states she is having some improvement in her L3 radiculopathy but still having trouble with long periods of sitting. And after she ambulates short distances. She with relatively little pain when laying flat or standing. She has been able to get up and to the bathroom when needed. She still endorses the game plan to go to pain management on January 19 for injection Physical Exam Physical Exam: Patient is awake and alert she is in mild distress when moving No neurological deficits no straight leg raising causing pain reflexes are appropriate bilaterally at the patella and Achilles Peripheral pulses and sensation are intact Results & Data Results & Data Vital Signs (Past 12 Hours) Vital Signs Temp Pulse Resp BP Pulse Ox O2 Del Method 01/17/23 07:41 97.7 F 78 18 123/79 94 Room Air 01/16/23 20:00 Room Air 01/16/23 21:14 98.2 F 81 16 145/86 H 94 Room Air PG Care Time/CCT Total # of Minutes Spent Total Time Spent with Patient: Total time spent is greater than 50% in coordination of care (as documented) at patient's floor/unit and/or counseling patient: Coding Level of Care Code 58936 SUB INP/OBS CARE 2/35MIN Diagnoses Intractable low back pain M54.59 GERD (gastroesophageal reflux disease) K21.9 Tobacco abuse Z72.0 Sleep apnea G47.30 Diabetes mellitus, type 2 E11.9
[2023-01-17] MEDS: BACLOFEN 10 MG TAB PO SCH ×3 (09:35→20:01)
[2023-01-17] MEDS: ATORVASTATIN 20 MG TAB PO SCH (09:36)
[2023-01-17] MEDS: PANTOprazole 40 MG TAB PO SCH ×2 (09:36→19:59)
[2023-01-17] MEDS: INSULIN ASPART PER UNIT CHARGE SC SCH ×4 (09:38→21:28)
[2023-01-17] MEDS: traMADol HCL 50 MG TABLET PO PRN ×2 (09:43→21:32)
[2023-01-17] MEDS: DOCUSATE SODIUM/SENNA 50/8.6MG TAB PO SCH (09:44)
[2023-01-17] MEDS: POLYETHYLENE (MIRALAX) 17 GM PACK PO SCH ×2 (09:44→20:01)
[2023-01-17] MEDS ORDERED: methylPREDNISolone 4 MG TAB PO SCH (21:00)
[2023-01-18] MEDS: HYDROmorphone INJ 0.5 MG/0.5 ML SYR IV PRN ×2 (01:17→13:58)
[2023-01-18] MEDS: LORazepam 0.5 MG TAB PO PRN (01:23)
[2023-01-18] MEDS: methylPREDNISolone 4 MG TAB PO SCH ×4 (06:07→21:12)
[2023-01-18] MEDS: PANTOprazole 40 MG TAB PO SCH ×2 (08:15→21:12)
[2023-01-18] MEDS: BACLOFEN 10 MG TAB PO SCH ×3 (08:15→21:12)
[2023-01-18] MEDS: ATORVASTATIN 20 MG TAB PO SCH (08:15)
[2023-01-18] MEDS: DOCUSATE SODIUM/SENNA 50/8.6MG TAB PO SCH (08:20)
[2023-01-18] MEDS: INSULIN ASPART PER UNIT CHARGE SC SCH ×4 (10:19→21:22)
[2023-01-18] MEDS: POLYETHYLENE (MIRALAX) 17 GM PACK PO SCH ×2 (12:18→21:21)
--- NOTE | 2023-01-18 13:25 | Hospitalist Progress Note ---
Date of Service January 18, 2023 Assessment & Plan (1) Intractable low back pain: Plan: acute on chronic , moderate risk suspected 2nd disc bulge at L3-L4 with left foraminal/far left lateral disc protrusion w/ severe narrowing of left neural foramen seen on MRI 01/12 - no neurological compromises, pt was planned for surgery 01/15 but canceled in favor of attempts of pain management injections Pain management consulted and plan for an injection ThursdayJanuary 19 at 13:30 medrol tapering dose and scheduled baclofen (2) GERD (gastroesophageal reflux disease): Plan: Chronic and stable Protonix 40mg BID (3) Tobacco abuse: Plan: chronci smoking cessation recommended (4) Sleep apnea: Plan: chronic non-compliant w/ home machine (5) Diabetes mellitus, type 2: Plan: chronic and stable HgbA1C 7.1 Hold home medications metformin 500mg BID while inpatient BSG AC/HS, SSI while inpatient Plan PT/OT DVT proph- SCDs/suyapa hose. Defer chemoproph. With possibility of upcoming injection Admission and Anticipated Discharge Date Admission Date: January 14, 2023 Subjective Patient states she is h continuing to improve in her L3 radiculopathy but still having trouble with long periods of sitting. And after she ambulates short distances. Definitely is a positional component especially when she flexes her left knee She with relatively little pain when laying flat or standing. She has been able to get up and to the bathroom when needed. She still endorses the game plan to go to pain management on January 19 for injection She is an appointment at 1:00 in [place] to be discharged with plenty of time to get across town Physical Exam Physical Exam: Patient is awake and alert she is in mild distress when moving No neurological deficits no straight leg raising causing pain reflexes are appropriate bilaterally at the patella and Achilles Peripheral pulses and sensation are intact Results & Data Results & Data Vital Signs (Past 12 Hours) Vital Signs Temp Pulse Resp BP Pulse Ox O2 Del Method 01/18/23 07:25 98.1 F 64 17 138/89 96 Room Air PG Care Time/CCT Total # of Minutes Spent Total Time Spent with Patient: Total time spent is greater than 50% in coordination of care (as documented) at patient's floor/unit and/or counseling patient: Coding Level of Care Code 65232 SUB INP/OBS CARE 2/35MIN Diagnoses Intractable low back pain M54.59 GERD (gastroesophageal reflux disease) K21.9 Tobacco abuse Z72.0 Sleep apnea G47.30 Diabetes mellitus, type 2 E11.9
[2023-01-19] MEDS: HYDROmorphone INJ 0.5 MG/0.5 ML SYR IV PRN ×2 (01:03→12:27)
[2023-01-19] MEDS ORDERED: methylPREDNISolone 4 MG TAB PO SCH (07:00)
[2023-01-19] MEDS: INSULIN ASPART PER UNIT CHARGE SC SCH (09:14)
[2023-01-19] MEDS: ATORVASTATIN 20 MG TAB PO SCH (09:16)
[2023-01-19] MEDS: BACLOFEN 10 MG TAB PO SCH (09:17)
[2023-01-19] MEDS: PANTOprazole 40 MG TAB PO SCH (09:17)
[2023-01-19] MEDS: POLYETHYLENE (MIRALAX) 17 GM PACK PO SCH (09:23)
[2023-01-19] MEDS: DOCUSATE SODIUM/SENNA 50/8.6MG TAB PO SCH (09:23)
--- NOTE | 2023-01-19 10:31 | Orthopedic Progress Note ---
Date of Service January 19, 2023 Assessment & Plan (1) Lumbosacral radiculopathy at L3: Plan: At this time she will attempt epidural injection. We will follow-up as needed if she fails to improve. Admission and Anticipated Discharge Date Admission Date: January 14, 2023 Subjective Patient still noting improvement compared to admission. She is able to sit for short period of time. Ambulation is still within the room. She is scheduled for an epidural injection today. Physical Exam Physical Exam: On exam she has reasonable strength testing. She is comfortable while lying supine. Results & Data Vital Signs (Past 12 Hours) Vital Signs Temp Pulse Resp BP Pulse Ox O2 Del Method 01/19/23 08:10 36.8 C 65 18 122/82 96 Room Air
[2023-01-19] MEDS: traMADol HCL 50 MG TABLET PO PRN (11:54)
--- NOTE | 2023-01-19 16:03 | Discharge Summary ---
Date of Service January 19, 2023 Admission HPI Per Admitting Provider 57-year-old female with a history DM II, HLD, CHASITY, spinal stenosis with surgical hx L-spine surgery in August 2022, GERD, type 2 diabetes that presents to the emergency department via EMS accompanied by son with complaints of "headache, back pain, vomiting". Had not been able to keep her medications down at home. Was seen in the ER 01/12 with acute low back pain with mild elevation of LFT and MRI was obtained which showed significant disc herniation L3 area which was discussed with Dr Jett at that time and felt stable for d/c with close follow up and given IV decadron and pain control and discharged from ER on prednisone. She notes that the pain had been significantly worse on her left back/leg. Had recently completed Doxycycline x 20 days for a facial cellulitis. No recent injury. Had been on tramadol at home for chronic pain. Had been discharged home but has been unable to take any of her PO medications secondary to nausea/vomiting and ongoing pain with headache. No increased LE weakness/bowel or bladder incontinence/numbness or tingling or saddle paresthesias. Son at bedside notes w/ her hx gastroparesis, she hasn't had any issues w/ vomiting in over 10 years. He had been giving her laxatives for bowel movements -- 2 tablets 2 days ago and 1 yesterday. She notes she had BMs following both, more liquid in nature but no blood. No NSAID use. No increased reflux reported but nausea related to pain. No abdominal pain. No shortness of breath. No coffee ground emesis or blood in emesis reported. She does have a mild headache from n/v, poor PO intake. Typically drinks tea/caffeine at baseline but hasn't had due to n/v. Hasn't really been up much since the weekend due to pain. Pain w/ spasms along her lower back w/ radiation to left groin down to the level of the knee but not past that. Increased pain/spasms with sitting up in bed along her lower back bilaterally. Slightly decreased strength with plantarflexion on the left compared to the right, intact bilaterally and equal with dorsiflexion. No prior hx kidney stones or dysuria reported. Of note, hx CHASITY, but does NOT use CPAP. Discussed admission for pain control, NPO at midnight and eval w/ Dr Jett in AM for possible need for surgery. Code status discussed and FULL CODE. Questions/concerns addressed at this time. Principal Diagnosis Intractable back pain herniated nucleus Scheduled for outpatient pain management Discharge Exam Patient is awake and alert she is in mild distress when moving No neurological deficits no straight leg raising causing pain reflexes are appropriate bilaterally at the patella and Achilles Peripheral pulses and sensation are intact Discharge Data Allergies Allergy/AdvReac Type Severity Reaction Status Date / Time gabapentin Allergy Severe SHORT OF Verified 01/19/23 13:19 BREATH, "FELT DRUNK", VOMITING codeine AdvReac Intermediate nausea & Verified 01/19/23 13:19 vomitting medroxyprogesterone AdvReac Intermediate migraines Verified 01/19/23 13:19 [From Depo-Provera] oxycodone AdvReac Intermediate Vomiting Verified 01/19/23 13:19 Consultations 01/13/23 14:28 ED Decision to Admit Stat 01/13/23 16:01 Consult Orthopedic Surgery Routine 01/15/23 08:30 Consult Pain Management Routine Procedures Performed Operation Date: 01/15/23 07:45 <No data on this case meets the specified criteria> Hospital Course (1) Intractable low back pain: acute on chronic , moderate risk suspected 2nd disc bulge at L3-L4 with left foraminal/far left lateral disc protrusion w/ severe narrowing of left neural foramen seen on MRI 01/12 - no neurological compromises, pt was planned for surgery 01/15 but canceled in favor of attempts of pain management injections Pain management consulted and plan for an injection ThursdayJanuary 19 at 13:30 medrol tapering dose and scheduled baclofen (2) GERD (gastroesophageal reflux disease): Chronic and stable Protonix 40mg BID (3) Tobacco abuse: councelled about smoking cessation recommended (4) Sleep apnea: chronic non-compliant w/ home machine (5) Diabetes mellitus, type 2: chronic and stable HgbA1C 7.1 restart home medications metformin 500mg BID Total Time Total Time Spent Total Time Spent (In Minutes): It required greater than 30 minutes to prepare this patient for discharge Discharge Plan Discharge Items Patient Disposition: Home - Self-Care Reason For Visit: INTRACTABLE BACK PAIN, LUMBAR RADICULOPATHY Discharge Diagnosis: intractable back pain lumbar radiculapathy Condition on Discharge: Good Activity: Per Instructions section Activity Comment: per pain management discharge instructions Non-emergency contact: Primary Care Provider and Specialist Call non-emergency contact if: your symptoms worsen Follow-up/Referrals: Linda Martini M.D. [Primary Care Provider] - 01/21/23 10:30 am Diet: Regular Addtl Attending Provider Instructions: please report to the pain management clinic from the hospital and follow their recommendations Pending Studies at Discharge: No Stand-Alone Forms: My [facility] Handle, Smoking Cessation Medications and DC Order Prescriptions: New methylprednisolone 4 mg Tablet 4 mg PO 0700,2100 Qty: 2 0RF Rx Instructions: one pill in evening of 01/19 and one pill on 01/20 baclofen 10 mg Tablet 10 mg PO TID Qty: 90 0RF tramadol 50 mg Tablet 50 mg PO Q6H PRN (Reason: pain) Qty: 20 0RF Continued tramadol 50 mg tablet 50 - 100 mg PO Q6H PRN (Reason: pain) Qty: 14 0RF prednisone 50 mg tablet 50 mg PO DAILY 3 Days Qty: 3 0RF Rx Instructions: STARTED 01/12/23 FOR 3 DAYS metformin 500 mg Tablet 500 mg PO BID atorvastatin 20 mg Tablet 20 mg PO QAM omeprazole 20 mg Tablet,Delayed Release (Dr/Ec) 20 mg PO BID Discharge Orders: Discharge Order (Routine); Ordered 01/19/23 Ordered By: Raleigh Hemphill/Other Patient Handouts: A1C, Managing Type 2 Diabetes Admission Data Admit Date/Time: 01/14/23 09:15 Attending Provider: Raleigh Gonzalez Admit Provider: Mihir Perez Primary Care Provider: Linda Martini Other Providers: Rajesh Jett ; Mihir Perez ; Jose Ortiz ; Jennifer Stewart ; Ahmet Corado ; Karen Calderon ; Pablo Henriquez Other Interventions: Discharge Summary Assessment (RN) Last Done: 01/19/23 11:39 Coding Level of Care Code 06943 INP/OBS DISCH >30 MIN Diagnoses Intractable low back pain M54.59 GERD (gastroesophageal reflux disease) K21.9 Tobacco abuse Z72.0 Sleep apnea G47.30 Diabetes mellitus, type 2 E11.9
[2023-01-20] MEDS ORDERED: methylPREDNISolone 4 MG TAB PO SCH (07:00)
[2023-01-21] MEDS ORDERED: methylPREDNISolone 4 MG TAB PO SCH (07:00)
== END 2023-01-19 12:37 | disposition home or self-care (01) ==
LOC: ED 12:33 → EDINP 12:33 → SUATTDRO 15:02 → 3W 15:34 → SUATTDRO 01-14 09:15
DX: E11.9 Type 2 diabetes mellitus without complications; M54.16 Radiculopathy, lumbar region; G89.29 Other chronic pain; Z88.5 Allergy status to narcotic agent; E78.5 Hyperlipidemia, unspecified; Z79.84 Long term (current) use of oral hypoglycemic drugs; K21.9 Gastro-esophageal reflux disease without esophagitis; F17.290 Nicotine dependence, other tobacco product, uncomplicated; Z87.891 Personal history of nicotine dependence; Z79.899 Other long term (current) drug therapy; G47.33 Obstructive sleep apnea (adult) (pediatric); Z88.8 Allergy status to other drugs, medicaments and biological substances

== ENCOUNTER 2023-09-07 08:04 | Inpatient (IN) ==
--- NOTE | 2023-07-30 12:12 | PAT Medication Instructions ---
Medication Instructions Date of Service July 30, 2023 Home Medications Medication Instructions Recorded tramadol 50 mg tablet 50 mg PO Q6H PRN pain #40 tabs 07/21/23 atorvastatin 20 mg tablet 20 mg PO QAM metformin 500 mg tablet 500 mg PO BID omeprazole 20 mg tablet,delayed release 20 mg PO BID baclofen 10 mg tablet 10 mg PO HS tramadol 50 mg tablet 50 mg PO Q6H PRN pain DO NOT take the morning of surgery metformin 500 mg tablet 500 mg PO BID Take morning of surgery With a small sip of water, OTHERWISE NOTHING TO EAT OR DRINK AFTER MIDNIGHT: atorvastatin 20 mg tablet 20 mg PO QAM omeprazole 20 mg tablet,delayed release 20 mg PO BID tramadol 50 mg tablet 50 mg PO Q6H PRN pain (if needed) Take evening before surgery metformin 500 mg tablet 500 mg PO BID omeprazole 20 mg tablet,delayed release 20 mg PO BID baclofen 10 mg tablet 10 mg PO HS tramadol 50 mg tablet 50 mg PO Q6H PRN pain (if needed) Other Notes If you have any questions please call us at [phone] or [phone] or [phone] or [phone]
--- NOTE | 2023-08-06 09:23 | Anesthesiology Consultation ---
Date of Service August 06, 2023 Assessment & Plan (1) Encounter for pre-operative examination: - Check BSG AM DOS - Infectious disease screening: Per assessment on 08/06/23: No known infectious disease contacts or current infectious disease symptoms. No noted Covid positive test result in past 90 days. - S/P L4-L5 decompression/fusion (09/11/22): Grade 1 view, Hall#2, ETT 7 at [facility] - Hx PONV: Scope patch used in the past with success. Patient requesting again for upcoming surgery. Scope patch ordered for DOS. Chart Review Chart Review: Acceptable Risk for Surgery and Patient seen in Pre Admission Testing Teaching & Discussion Pre-Anesthesia Teaching/Discussion Notes: Instructed NPO after midnight before surgery,except medications with 15 cc of water. Medication instructions provided according to the PAT guidelines. History Surgery Operation Date: 09/07/23 07:45 Proposed Procedures p Hardware Removal of the Spine, L3-L4 Decompression, L3-L5 Fusion, Spinal Cord Monitoring - Rajesh Jett, Height/Weight Height: 5 ft 7 in Weight: 83.6 kg Allergies Allergy/AdvReac Type Severity Reaction Status Date / Time gabapentin Allergy Severe Dyspnea, Verified 07/31/23 13:32 vomiting, "drunk" feeling codeine AdvReac Intermediate N/V Verified 07/31/23 13:32 medroxyprogesterone AdvReac Intermediate Migraines Verified 07/31/23 13:32 [From Depo-Provera] oxycodone AdvReac Intermediate Vomiting Verified 07/30/23 08:37 Medications Home Medications Medication Instructions Recorded Confirmed Last Taken atorvastatin 20 mg tablet 20 mg PO QAM 08/05/22 07/30/23 01/13/23 metformin 500 mg tablet 500 mg PO BID 08/05/22 07/30/23 01/13/23 08:00 omeprazole 20 mg tablet,delayed 20 mg PO BID 08/05/22 07/30/23 01/13/23 08:00 release tramadol 50 mg tablet 50 mg PO Q6H PRN pain #40 tabs 07/21/23 07/30/23 Unknown baclofen 10 mg tablet 10 mg PO HS #30 tabs 07/31/23 Unknown Past Medical History Medical History History of COVID-19 2020- mild symptoms Postlaminectomy syndrome of lumbosacral region Gastroparesis 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 Spinal stenosis Osteoarthritis Degenerative disc disease Chronic back pain Hiatal hernia GERD (gastroesophageal reflux disease) Diabetes mellitus, type 2 NIDDM Migraine Hx Cardiac murmur Not noted since patient was 8 years of age- felt r/t rheumatic fever as child Reports no known ECHO or cardio follow up needed No murmur noted at PAT appt on 08/11/22 History of rheumatic fever as a child Hyperlipidemia Sleep apnea Non-compliant Diabetic gastroparalysis Exercise / Class Metabolic Activity II 4-5 Yardwork/Stairs/Walk up hill (one FS (no CP, no SOB)) Past Family History Family History Other No family history of adverse response to anesthesia Past Surgical History Surgical History Fusion of spine L4-L5 decompression/fusion (09/11/22): Grade 1 view, Hall#2, ETT 7 at [facility] Nausea and vomiting after administration of anesthetic agent Good response when scope patch used with previous surgery History of anesthesia reaction "Slow to wake" History of tooth extraction all teeth removed History of carpal tunnel release right History of laparoscopy FRANDY History of hysterectomy with LSO History of bilateral tubal ligation History of section x2 S/P epidural steroid injection History of cholecystectomy History of esophagogastroduodenoscopy (EGD) History of colonoscopy Past Anesthesia History No Family Hx of Anesthesia Complications and Other (Slow to wake) History of PONV History of PONV (Good response when scope patch used with previous surgery ) and Hx of Motion Sickness Social History Smoking Status: Former smoker tobacco type: e-cigarettes Do You Dip or Chew Tobacco: No Smoking End Date: Cigs 09/2022 (hx 46 years 1.5 ppd), Quit vaping/all nicotine early 07/2023 Hx Alcohol Use: Yes Alcohol type: hard liquor alcohol intake frequency: holidays/special occasions only Hx Substance Use: No substance use type: does not use Review of Systems Patient denies chest pain, shortness of breath, dyspnea on exertion, fever, chills, cough, wheezing, palpitations. Physical Exam Vital Signs VITALS BP 127/85 P 72 TEMP 98.3 SP02 96%RA RESP 16 PHYSICAL Full cervical extension range of motion. Full TMJ range of motion. TMD 3.5 finger breaths Mallampati Score 2 Dentition: upper/lower full dentures Lungs: clear throughout to auscultation Cardiac: regular rate and rhythm, no murmurs noted Spine: normal Carotid arteries: negative bruit Extremities: no LE edema Lab Results Anesthesia Preop Results Results Anesthesia Widget: WBC 5.55 K/ul (4.8-10.8) 08/06/23 Hgb 14.0 g/dl (12.0-16.0) 08/06/23 Hct 41.5 % (37.0-47.0) 08/06/23 Plt 185 K/uL (130-400) 08/06/23 Na 136 mmol/L (136-145) 08/06/23 K 4.1 mmol/L (3.5-5.1) 08/06/23 Cl 100 mmol/L (98-107) 08/06/23 CO2 29 mmol/L (21-32) 08/06/23 BUN 10 mg/dl (6-23) 08/06/23 Creat 0.73 mg/dl (0.6-1.2) 08/06/23 Glucose Level 206 mg/dl (70-99(Fasting)) H 08/06/23 PT 11.1 Seconds (9.0-12.0) 08/06/23 PTT 27.9 Seconds (21.0-31.0) 08/06/23 INR 1.0 (0.9-1.1) 08/06/23 HA1c 8.2 % (4.5-5.6) H 08/06/23 Urine Color Yellow 08/06/23 Urine Appearance Clear (Clear) 08/06/23 Urine pH 5.5 (4.5-7.5) 08/06/23 Urine Specific [place] 1.009 (1.000-1.030) 08/06/23 Urine Protein Negative (Negative) 08/06/23 Urine Glucose (UA) Negative (Negative) 08/06/23 Urine Ketones Negative (Negative) 08/06/23 Urine Blood Negative (Negative) 08/06/23 Urine Nitrite Negative (Negative) 08/06/23 Urine Bilirubin Negative (Negative) 08/06/23 Urine Urobilinogen Negative (Negative) 08/06/23 Urine Leukocyte Esterase Negative (Negative) 08/06/23 Blood Type A Positive 08/06/23 Antibody Screen NEGATIVE 08/06/23 Testing Laboratory Results Surgeon's office made aware of elevated glucose/A1C* Electrocardiogram Date: 08/06/23 Findings: + NSR @ (64) Chest X-Ray Date: 01/13/23 FINDINGS: The lungs are clear. Cardiac silhouette is normal in size. No pleural effusions. No pneumothorax. IMPRESSION: No acute process.
[~2023-09-07 08:04] MED LIST: ACETAMINOPHEN 500 MG TAB PO SCH; ALLERGY Noted to ORDERED Medication SCH; CeleBREX 200 MG CAP PO SCH; LR 15ML/HR IV SCH; LR 60ML/HR IV SCH; SCOPOLAMINE 1 MG TDSY TD SCH
[2023-09-07] MEDS ORDERED: PROMETHAZINE HCL 6.25 MG in SODIUM CHLORIDE 0.9% 50 ML IV PRN (08:37)
[2023-09-07] MEDS ORDERED: ePHEDrine sulfate 50 MG/ML AMP IV PRN (08:37)
[2023-09-07] MEDS ORDERED: ATROPINE SULFATE 0.1 MG/ML 10ML SYR IV PRN (08:37)
[2023-09-07] MEDS ORDERED: ONDANSETRON INJ 2 MG/ML 2 ML VIAL IV PRN ×2 (08:37→13:03)
[2023-09-07] MEDS ORDERED: HYDROmorphone INJ 2 MG/ML SYR/VIAL IV PRN (08:37)
--- NOTE | 2023-09-07 09:41 | History & Physical Bridge Note ---
Date of Service September 07, 2023 History & Physical Bridge Note I have examined the patient, reviewed the History & Physical and in the interval since the performance of the History & Physical I have noted the following changes of clinical significance: no changes noted
--- NOTE | 2023-09-07 09:45 | History & Physical Report ---
Date of Service September 07, 2023 Assessment & Plan (1) Lumbosacral radiculopathy at L3: Plan: Removal of hardware, L3-L4 decompression, L4-L5 fusion History of Present Illness Chief Complaint: Back and leg pain Primary Care Provider: Linda Martini This is a 50-year-old female known to me the presents with chronic persistent back and leg pain after failing course of nonoperative care is here for surgical invention. Allergies Allergy/AdvReac Type Severity Reaction Status Date / Time gabapentin Allergy Severe Dyspnea, Verified 09/07/23 08:43 vomiting, "drunk" feeling codeine AdvReac Intermediate N/V Verified 09/07/23 08:43 medroxyprogesterone AdvReac Intermediate Migraines Verified 09/07/23 08:43 [From Depo-Provera] oxycodone AdvReac Intermediate Vomiting Verified 09/07/23 08:43 Home Medications Medication Instructions Recorded Confirmed Type atorvastatin 20 mg tablet 20 mg PO QAM 08/05/22 09/07/23 History metformin 500 mg tablet 500 mg PO BID 08/05/22 09/07/23 History omeprazole 20 mg tablet,delayed 20 mg PO BID 08/05/22 09/07/23 History release baclofen 10 mg tablet 10 mg PO HS #30 tabs 07/31/23 09/07/23 Rx tramadol 50 mg tablet 50 mg PO Q6H PRN pain #40 tabs 08/18/23 09/07/23 Rx Past Med/Surg History Medical History History of COVID-2020- mild symptoms Postlaminectomy syndrome of lumbosacral region Gastroparesis 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 Spinal stenosis Osteoarthritis Degenerative disc disease Chronic back pain Hiatal hernia GERD (gastroesophageal reflux disease) Diabetes mellitus, type 2 NIDDM Migraine Hx Cardiac murmur Not noted since patient was 8 years of age- felt r/t rheumatic fever as child Reports no known ECHO or cardio follow up needed No murmur noted at PAT appt on 08/11/22 History of rheumatic fever as a child Hyperlipidemia Sleep apnea Non-compliant Diabetic gastroparalysis Surgical History Fusion of spine L4-L5 decompression/fusion (09/11/22): Grade 1 view, Hall#2, ETT 7 at [facility] Nausea and vomiting after administration of anesthetic agent Good response when scope patch used with previous surgery History of anesthesia reaction "Slow to wake" History of tooth extraction all teeth removed History of carpal tunnel release right History of laparoscopy FRANDY History of hysterectomy with LSO History of bilateral tubal ligation History of section x2 S/P epidural steroid injection History of cholecystectomy History of esophagogastroduodenoscopy (EGD) History of colonoscopy Family History Other No family history of adverse response to anesthesia Social History Smoking Status: Former smoker Tobacco Type: Cigarettes Smoking End Date: Cigs 09/2022 (hx 46 years 1.5 ppd), Quit vaping/all nicotine early 07/2023; Second Hand Exposure: Yes; Do You Dip or Chew Tobacco: No; Tobacco Cessation Education Requested by Patient: No Hx Alcohol Use: Yes Alcohol type: hard liquor Hx Substance Use: No Preferred Language: Maori Communication Ability: Effective 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
[2023-09-07] MEDS ORDERED: ceFAZolin 330 MG/ML 1 GM VIAL ONE (09:48)
[2023-09-07] MEDS ORDERED: BUPIVACAINE/EPINEPHRINE 0.25% 1:200,000 30 ML VIAL ONE (09:48)
[2023-09-07] MEDS ORDERED: fentaNYL citrate PF 100 MCG/2 ML VIAL ONE ×3 (10:01→14:27)
[2023-09-07] MEDS ORDERED: PROPOFOL IV EMULSION 10 MG/ML 20 ML VIAL IV ONE (10:01)
[2023-09-07] MEDS ORDERED: ONDANSETRON INJ 2 MG/ML 2 ML VIAL ONE ×2 (10:01→11:13)
[2023-09-07] MEDS ORDERED: LIDOCAINE 2% 2 ML VIAL/AMP(20MG/ML) INFIL ONE (10:01)
[2023-09-07] MEDS ORDERED: DEXAMETHASONE SOD INJ 4 MG/ML VIAL ONE (10:01)
[2023-09-07] MEDS ORDERED: MIDAZOLAM HCL 1 MG/ML 2ML VIAL ONE (10:01)
[2023-09-07] MEDS ORDERED: ROCURONIUM BROMIDE 10 MG/ML 5 ML VIAL IV ONE ×2 (10:01→10:39)
--- NOTE | 2023-09-07 10:11 | History & Physical Bridge Note ---
Date of Service September 07, 2023 History & Physical Bridge Note I have examined the patient, reviewed the History & Physical and in the interval since the performance of the History & Physical I have noted the following changes of clinical significance: no changes noted Please note fusion will extend from L3-L5
[2023-09-07] MEDS ORDERED: FAMOTIDINE/PF 20 MG/2 ML VIAL IV ONE (10:35)
[2023-09-07] MEDS ORDERED: SUGAMMADEX SODIUM 200 MG/2 ML VIAL IV ONE (11:10)
[2023-09-07] MEDS ORDERED: FLOSEAL HEMOSTATIC MATRIX 10ML TOP ONE (11:30)
--- NOTE | 2023-09-07 11:43 | Operative Report ---
Post Operative Report Pre & Post Diagnosis Operation Date: 09/07/23 10:05 Pre-Op Diagnosis: Lumbar Disc Herniation with Radiculopathy Post-Op Diagnosis: Lumbar Disc Herniation with Radiculopathy I identified the patient and participated in the time-out.: Yes Procedure Operation Date: 09/07/23 10:05 Actual Procedures #1 removal of posterior instrumentation L4-L5. #2 exploration of fusion L4-5. #3 lumbar decompression with bilateral medial facetectomies and foraminotomies L3-L4. #4 posterior spinal fusion L3-L4. #5 placement posterior instrumentat ion L3-L5. #6 interbody fusion L3-L4. #7 placement Spira 13 x 26 mm at L3-L4 per #8 placement locally harvested morselized autograft in the posterior gutters. #9 placement I factor combined with V toss in interbody space and posterior lateral gutters. Surgeon Rajesh Jett, DO Booster Operator Laura Medrano Estimated Blood Loss 50 Findings See Below The patient is 5 foot 7 weighing over 89 kg with a BMI of 31. Patient's body habitus did contribute to significant technical difficulty required deepest retractors longer instruments in order to perform the procedure. This at least 50% increased operative time. Specimens None Indications This is a 50-year-old female who presents above-mentioned diagnosis and failing since course of nonoperative care is here for surgical invention. Description of Procedure Patient was met with identified informed consent obtained. Patient was then taken to the operative suite underwent a patient placed in a prone position on the Spike table atop the Dangelo frame. All bony prominences well-padded eyes inspected to ensure no external pressure placed upon them. This point the lumbar spine was prepped and draped in a sterile fashion. Sharp dissection with the assistance of Bovie cautery performed down to and exposing the lamina transverse processes of L3 and the instrumentation at L4-5 bilaterally. Then proceeded move the hardware bilaterally explore the fusion mass noting it to be maturing. I then performed a complete laminectomy of L3 including bilateral medial facetectomies and foraminotomies as well as for complete facetectomy on the left and removal of foraminal extraforaminal disc herniation. After complete Decompression pedicle screw placed in L3 L4-5 bilaterally with assistance of fluoroscopy purposes hannah placed. By way of a transforaminal approach on the left complete discectomy of L3-L4 was performed endplates guided to subcortical bleeding bone and a 13 x 26 mm Spira cage with I factor tapped in position. The rods then compressed locked into final position bilaterally. The transverse processes of L3-L4 burred to subcortical bleeding bone. Infuse collagen sponge, mass graft local autograft was placed in the posterior gutters. 15 round MITZI drain inserted. The incision was then closed with 1 Vicryl the fascia 2-0 Vicryl subcutaneously and 4 Monocryl for final skin closure. Steri- Strips sterile dressing placed. Patient waken taken to PACU in stable condition. Please note spinal cord monitoring was utilized throughout the procedure no changes noted. Lastly Laura Medrano was present at the entire surgery and while the patient positioning complex portions of the surgery and final skin closure. I attest to the content of the Intraoperative Record and any orders documented therein. Any exceptions are noted below.
--- NOTE | 2023-09-07 11:53 | Fluoroscopy Report ---
FL lumbar spine 2-3V CLINICAL HISTORY: HW REMOVAL L3-L4 DECOMPRESSION L3-L5 FUSION TECHNIQUE: 2 views were obtained with the C-arm in the OR with the above procedure. Total fluoroscopy time was 11.3 seconds. Radiation dose was 7.45 mGy. Comparison: Comparison is made to MRI lumbar spine 01/12/2023 FINDINGS/IMPRESSION: Intraoperative images were obtained of L3-L4 decompression at L3-L5 fusion. Please correlate with intraoperative fluoroscopy and operative report. ACT 112: Negative or not required by law. Electronically signed by: Nav Calderon M.D. 09/07/2023 11:52 AM
[2023-09-07] MEDS: fentaNYL citrate PF 100 MCG/2 ML VIAL IV PRN ×4 (12:05→12:33)
[2023-09-07] MEDS ORDERED: PROMETHAZINE HCL 12.5 MG in SODIUM CHLORIDE 0.9% 50 ML IV PRN (13:03)
[2023-09-07] MEDS ORDERED: bisacodyL 10 MG SUPP PR PRN (13:03)
[2023-09-07] MEDS ORDERED: METOCLOPRAMIDE HCL INJ 5 MG/ML 2 ML VIAL IV PRN (13:03)
[2023-09-07] MEDS ORDERED: FAMOTIDINE 20 MG TAB PO PRN (13:03)
[2023-09-07] MEDS ORDERED: DO NOT ADMINISTER FLU VACCINE PRN (13:03)
[2023-09-07] MEDS ORDERED: NALOXONE HCL 0.4 MG/1 ML VIAL/CARP IV PRN (13:03)
[2023-09-07] MEDS ORDERED: ACETAMINOPHEN 500 MG TAB PO PRN (13:03)
[2023-09-07] MEDS ORDERED: diphenhydrAMINE Capsule 25 MG CAP PO PRN (13:03)
[2023-09-07] MEDS ORDERED: HYDROmorphone INJ 0.5 MG/0.5 ML SYR IV PRN (13:03)
[2023-09-07] MEDS ORDERED: MAGNESIUM HYDROXIDE SUSP 30 ML UDC PO PRN (13:03)
[2023-09-07] MEDS ORDERED: LORazepam 0.5 MG in SYRINGE 0.25 ML IV PRN (13:03)
[2023-09-07] MEDS ORDERED: DO NOT ADMINISTER PNEUMOCOCCAL VACCINE PRN (13:03)
[2023-09-07] MEDS ORDERED: ALUMINUM/MAGNESIUM SUSP 30 ML UDC PO PRN (13:03)
[2023-09-07] MEDS ORDERED: hydrOXYzine HCl 25 MG TAB PO PRN (13:03)
[2023-09-07] MEDS ORDERED: SOD PHOSPHATE/SOD BIPHOSPHATE ENEMA 132 ML BTL PR PRN (13:03)
[2023-09-07] MEDS ORDERED: LORazepam 0.5 MG TAB PO PRN (13:03)
[2023-09-07] MEDS ORDERED: ONDANSETRON 4 MG OD TAB PO PRN (13:03)
[2023-09-07] MEDS ORDERED: ACETAMINOPHEN 1,000 MG/100 ML VIAL IV PRN (13:03)
[2023-09-07] MEDS: LACTATED RINGER'S 1,000 ML IV SCH (13:21)
[2023-09-07] MEDS: HYDROmorphone INJ 1 MG/ML SYRINGE IV PRN ×3 (13:24→22:15)
--- NOTE | 2023-09-07 13:30 | Anesthesiology Progress Note ---
Date of Service September 07, 2023 Anesthesia Post Procedure Vital Signs Vital Signs: Temp Pulse Pulse Resp BP Pulse Ox O2 Del Method 09/07/23 13:08 36.3 C L 110 H 16 131/86 98 Nasal Cannula 09/07/23 13:05 36.3 C L 111 H 16 131/86 98 Nasal Cannula 09/07/23 12:45 36.7 C 107 H 20 123/89 96 Nasal Cannula 09/07/23 12:35 36.7 C 109 H 22 125/80 93 Nasal Cannula 09/07/23 12:25 104 H 8 L 132/83 98 Oxymask 09/07/23 12:15 98 H 15 131/83 98 Oxymask 09/07/23 12:05 106 H 16 132/93 99 Oxymask 09/07/23 11:57 36.1 C L 111 H 12 169/102 H 99 Oxymask 09/07/23 08:46 37.1 C 97 H 20 115/97 96 Room Air O2 Flow Rate 09/07/23 13:08 2 09/07/23 13:05 2 09/07/23 12:45 2 09/07/23 12:35 2 09/07/23 12:25 2 09/07/23 12:15 3 09/07/23 12:05 4 09/07/23 11:57 5 09/07/23 08:46 Pain Intensity Left Lower Leg: Pain Intensity: 2 Back: Pain Intensity: 5 Transfer of Care Handoff Completed per policy Notes Mental Status: alert / awake / arousable Patient Amnestic to Procedure: Yes Nausea / Vomiting: adequately controlled Pain: adequately controlled Airway Patency, RR, SpO2: stable & adequate BP & HR: stable & adequate Hydration State: stable & adequate Anesthetic Complications: no major complications apparent
[2023-09-07] MEDS: CHECK SCOPOLAMINE PATCH PLACEMENT SCH ×2 (13:50→16:25)
[2023-09-07] MEDS ORDERED: PHARMACY GLYCEMIC MGMT CONSULT PRN (14:50)
--- NOTE | 2023-09-07 15:14 | Hospitalist Consultation ---
Date of Consultation September 07, 2023 Assessment & Plan (1) Lumbosacral radiculopathy at L3: s/p #1 removal of posterior instrumentation L4-L5. #2 exploration of fusion L4- 5. #3 lumbar decompression with bilateral medial facetectomies and foraminotomies L3-L4. #4 posterior spinal fusion L3-L4. #5 placement posterior instrumentation L3-L5. #6 interbody fusion L3-L4. #7 placement Spira 13 x 26 mm at L3-L4 per #8 placement locally harvested morselized autograft in the posterior gutters. #9 placement I factor combined with V toss in interbody space and posterior lateral gutters. EBL 50cc Acenf/dexamethasone ordered by primary service Pain control/bowel regimen/PT/OT/DVT prophylaxis per primary service Encourage incentive spirometer. O2 as needed (likely with sleep) Monitor labs in AM (2) Diabetes mellitus, type 2: A1c 8.2 in july, up from prior At baseline on metformin 500mg BID Pharmacy consulted for glycemic management/assistance Monitor BSGs -- suspect 500mg BID not sufficient given A1c 8.2 in July and would recommend increasing to 1gm BID in follow up discussions with primary care however patient notes they are going to check this once recovered from surgery as she has been on steroids much of this year and was previously well controlled in the 6s (3) GERD (gastroesophageal reflux disease): On omeprazole 20mg BID at baseline -- continue/hospital formulary while inpatient (4) Sleep apnea: non compliant. compliance encouraged however further discussion as outlined in HPI, has trialed multiple masks/nasal pillows, unable to tolerate Incentive spirometer encouraged Supplemental O2 to maintain sats outpt/fu for ongoing discussions (5) Hyperlipidemia: continue atorvastatin 20mg daily Plan Thanks for allowing hospitalist medicine to participate in the care of Ms Daniels. Hospitalist service will follow along. Please call with any questions/concerns. Supervising Physician Co-Signing Physician Notes I personally saw and examined the patient. I verified all pelaez points and agree with Tracy Swanson PA-C with the following exceptions and/or additions: 58 year old female POD# revision lumbar decompression surgery. EBL 50ml. No acute concerns or questions from the patient. No current reflux symptoms. O/E HS RRR, no murmurs, Chest CTAB, Abdo SNT A/P VTE/Pain/bowel management per primary orthopedic team T2DM - HbA1C 8.2 08/06, pharmacy consulted for glycemic control with insulin. Agree with increase in metformin on discharge but likely to need additional medications with close PCP follow up. Obstructive sleep apnea - non compliance with CPAP, likely to have intermittent hypoxia overnight No change to plan as above History of Present Illness Reason for Consultation: medical management Requesting Physician: Dr Jett Attending Physician: Rajesh Jett, DO History of Present Illness 58yo female presented for lumbar decompression/fusion with Dr Jett this morning. Eval in 351-1 postoperatively. Just got dose of Dilaudid for pain w/ good relief and resting initially upon arrival on 2L NC. She previously had decompression/fusion in August 2022 but had been at the gym/working out and bulging disc/admission in January for lumbosacral radiculopathy and had epidural steroid injection which was helpful but hadn't lasted and ongoing outpatient steroid use for pain control prompting current surgery. She states her pain in her legs is much improved but having incisional pain at present. SHe is aware of post-op course given prior surgery last year and notes she was thankful to be home for the holidays but thinks she might have went home too soon. She reports visinting family in [facility] for Thanksgiving and that her back completely gave out, worsened pain/weakness/symptoms on her LEFT leg. Discussed recent A1c but she notes her PCP is going to f/u after surgery as suspected inaccurate w/ ongoing steroids. Discussed insulin/glycemic management while inpatient. She has walker in place, has been having regular bowel movements prior to surgery but notes she is aware pain medication can contribute to constipation and getting medication. Sopalamine patch in place R ear, prior nausea/vomiting w/ anesthesia and to continue for now. Discussed CHASITY, she has failed 3 outpatient sleep tests, unable to tolerate mask or nasal pillows. She notes her PCP told her they were upset she wouldn't have treatment and that she will 10 years prior to if she was treated and that likely would pass in her sleep and that she is ok with it because she cannot tolerate it. Discussed alternatives/device to chest. F/u PCP ongoing discussions. No fever/chills, chest pain, shortness of breath at present. No abdominal pain or nausea. She quit smoking in June for her procedure but was using vape prior. Anticipating several day inpatient stay prior to dc per her discussion w/ Dr Jett. Questions/concerns addressed at this time. Allergies Allergy/AdvReac Type Severity Reaction Status Date / Time gabapentin Allergy Severe Dyspnea, Verified 09/07/23 08:43 vomiting, "drunk" feeling codeine AdvReac Intermediate N/V Verified 09/07/23 08:43 medroxyprogesterone AdvReac Intermediate Migraines Verified 09/07/23 08:43 [From Depo-Provera] oxycodone AdvReac Intermediate Vomiting Verified 09/07/23 08:43 Home Medications Medication Instructions Recorded Confirmed Type atorvastatin 20 mg tablet 20 mg PO QAM 08/05/22 09/07/23 History metformin 500 mg tablet 500 mg PO BID 08/05/22 09/07/23 History omeprazole 20 mg tablet,delayed 20 mg PO BID 08/05/22 09/07/23 History release baclofen 10 mg tablet 10 mg PO HS #30 tabs 07/31/23 09/07/23 Rx tramadol 50 mg tablet 50 mg PO Q6H PRN pain #40 tabs 08/18/23 09/07/23 Rx hydrocodone 5 mg-acetaminophen 325 1 tab PO Q6H PRN pain #30 tabs 09/07/23 Rx mg tablet Patient History Medical History History of COVID-2020- mild symptoms Postlaminectomy syndrome of lumbosacral region Gastroparesis 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 Spinal stenosis Osteoarthritis Degenerative disc disease Chronic back pain Hiatal hernia GERD (gastroesophageal reflux disease) Diabetes mellitus, type 2 NIDDM Migraine Hx Cardiac murmur Not noted since patient was 8 years of age- felt r/t rheumatic fever as child Reports no known ECHO or cardio follow up needed No murmur noted at PAT appt on 08/11/22 History of rheumatic fever as a child Hyperlipidemia Sleep apnea Non-compliant Diabetic gastroparalysis Surgical History Fusion of spine L4-L5 decompression/fusion (09/11/22): Grade 1 view, Hall#2, ETT [address] [facility] Nausea and vomiting after administration of anesthetic agent Good response when scope patch used with previous surgery History of anesthesia reaction "Slow to wake" History of tooth extraction all teeth removed History of carpal tunnel release right History of laparoscopy FRANDY History of hysterectomy with LSO History of bilateral tubal ligation History of section x2 S/P epidural steroid injection History of cholecystectomy History of esophagogastroduodenoscopy (EGD) History of colonoscopy Family History Other No family history of adverse response to anesthesia Social History Smoking Status: Former smoker Tobacco Type: Cigarettes Smoking End Date: Cigs 09/2022 (hx 46 years 1.5 ppd), Quit vaping/all nicotine early 07/2023; Second Hand Exposure: No; Do You Dip or Chew Tobacco: No; Tobacco Cessation Education Requested by Patient: No Hx Alcohol Use: Yes Alcohol type: hard liquor Hx Substance Use: No Preferred Language: Tamazight Communication Ability: Effective Repairer And Checker Required: No Beliefs That Will Affect Care: None Current Living Situation: Other Current Living Situation Comment: Lives with son. Other Information That Helps Us Care for You: No Feels Safe at Home: Yes Safety Concerns: Feels Safe At This Time Assistive Devices: Denture - Upper, Denture - Lower, Glasses and Walker Review of Systems Review of Systems: All systems reviewed & are unremarkable except as noted in HPI & below Physical Exam Physical Exam: General: WD/WN obese female resting in bed, NAD, 2L NC HEENT head atraumatic, normocephalic, mm slightly dry, trachea midline +thick neck Resp even/unlabored, diminished in the bases, no w/c/r, on 2L post-op CV: regular/slightly tachy 90-100s at times (denies palpitations), no significant m/r/g, no pitting edema/calf tenderess, pulses palpable, scds in place GI; +BS, soft/nt ; walker draining clear yellow urine MSK/Neuro: dressing/drain in place to lumbar spine, dorsiflexion/plantar flexion intact, strength equal 5/5 with such, sensation intact, toes mobile, pulses palpable Psych: AOx3, cooperative with exam Results & Data Results & Data Vital Signs (Past 12 Hours) Vital Signs Temp Pulse Pulse Resp BP Pulse Ox O2 Del Method 09/07/23 14:57 36.4 C L 104 H 16 111/63 95 Room Air 09/07/23 13:57 36.1 C L 101 H 16 119/77 95 Nasal Cannula 09/07/23 13:27 36.2 C L 104 H 16 120/82 97 Nasal Cannula 09/07/23 13:08 Nasal Cannula 09/07/23 13:08 36.3 C L 110 H 16 131/86 98 Nasal Cannula 09/07/23 13:05 36.3 C L 111 H 16 131/86 98 Nasal Cannula 09/07/23 12:45 36.7 C 107 H 20 123/89 96 Nasal Cannula 09/07/23 12:35 36.7 C 109 H 22 125/80 93 Nasal Cannula 09/07/23 12:25 104 H 8 L 132/83 98 Oxymask 09/07/23 12:15 98 H 15 131/83 98 Oxymask 09/07/23 12:05 106 H 16 132/93 99 Oxymask 09/07/23 11:57 36.1 C L 111 H 12 169/102 H 99 Oxymask 09/07/23 08:46 37.1 C 97 H 20 115/97 96 Room Air O2 Flow Rate 09/07/23 14:57 09/07/23 13:57 2 09/07/23 13:27 2 09/07/23 13:08 2 09/07/23 13:08 2 09/07/23 13:05 2 09/07/23 12:45 2 09/07/23 12:35 2 09/07/23 12:25 2 09/07/23 12:15 3 09/07/23 12:05 4 09/07/23 11:57 5 09/07/23 08:46 Laboratory Results 09/07/23 09/07/23 09/07/23 Range/Units 12:05 08:58 08:32 POC Glucose 195 H 194 H (70-99) mg/dl Blood Type A Positive Antibody Screen NEGATIVE Crossmatch See Detail Diagnostic Findings Lumbar Spine X-Ray 09/07/23 10:05 FL lumbar spine 2-3V CLINICAL HISTORY: HW REMOVAL L3-L4 DECOMPRESSION L3-L5 FUSION TECHNIQUE: 2 views were obtained with the C-arm in the OR with the above procedure. Total fluoroscopy time was 11.3 seconds. Radiation dose was 7.45 mGy. Comparison: Comparison is made to MRI lumbar spine 01/12/2023 FINDINGS/IMPRESSION: Intraoperative images were obtained of L3-L4 decompression at L3-L5 fusion. Please correlate with intraoperative fluoroscopy and operative report. ACT 112: Negative or not required by law. Electronically signed by: Nav Calderon M.D. 09/07/2023 11:52 AM PG Care Time/CCT Total # of Minutes Spent Total Time Spent with Patient: Total time spent is greater than 50% in coordination of care (as documented) at patient's floor/unit and/or counseling patient: Coding Level of Care Code 58587 IN/OBS CONSULT LVL 3,45M Diagnoses Lumbosacral radiculopathy at L3 M54.17 Diabetes mellitus, type 2 E11.9 GERD (gastroesophageal reflux disease) K21.9 Sleep apnea G47.30 Hyperlipidemia E78.5
[2023-09-07] MEDS ORDERED: GLUCOSE 10 TAB/TUBE PO PRN (15:15)
[2023-09-07] MEDS ORDERED: CARBOHYDRATES FOR HYPOGLYCEMIA PO PRN (15:15)
[2023-09-07] MEDS ORDERED: GLUCOSE 40% GEL 15 GM TUBE PO PRN (15:15)
[2023-09-07] MEDS ORDERED: DEXTROSE 50% 50 ML SYRINGE IV PRN (15:15)
[2023-09-07] MEDS ORDERED: GLUCAGON FOR INJ 1 MG VIAL IM PRN (15:15)
[2023-09-07] MEDS: INSULIN ASPART PER UNIT CHARGE SC SCH ×2 (17:29→20:51)
[2023-09-07] MEDS: ceFAZolin 2000MG 2,000 MG/15 ML SYR IV SCH (18:26)
[2023-09-07] MEDS: PANTOprazole 40 MG TAB PO SCH (20:22)
[2023-09-07] MEDS: BACLOFEN 10 MG TAB PO SCH (20:22)
[2023-09-07] MEDS: DOCUSATE SODIUM/SENNA 50/8.6MG TAB PO SCH (20:22)
[2023-09-07] MEDS ORDERED: LANTUS PER UNIT CHARGE SC ONE (21:00)
[2023-09-08] MEDS: INSULIN ASPART PER UNIT CHARGE SC SCH ×6 (00:28→22:01)
[2023-09-08] MEDS: LACTATED RINGER'S 1,000 ML IV SCH ×2 (00:30→06:43)
[2023-09-08] MEDS: CHECK SCOPOLAMINE PATCH PLACEMENT SCH ×3 (00:31→16:15)
[2023-09-08] MEDS: ceFAZolin 2000MG 2,000 MG/15 ML SYR IV SCH (03:46)
[2023-09-08] MEDS: POLYETHYLENE (MIRALAX) 17 GM PACK PO SCH ×4 (04:17→22:46)
[2023-09-08] MEDS: traMADol HCL 50 MG TABLET PO PRN ×2 (06:02→20:19)
[2023-09-08 07:14] LABS: Basophils # (auto) 0.01 K/uL (0.00-0.20); Basophils % (auto) 0.1 %; Hematocrit (blood only) 36.3 % (37.0-47.0); Hemoglobin 12.5 g/dl (12.0-16.0); Immature Granulocytes # (auto) 0.11 K/uL (0.01-0.20); Immature Granulocytes % (auto) 0.6 %; Lymphocytes % (auto) 5.7 %; Mean Corpuscular Hemoglobin 29.4 pg (25.0-34.0); Mean Corpuscular Hgb Conc 34.4 g/dL (32.0-36.0); Mean Corpuscular Volume 85.4 fL (80.0-100.0); Mean Platelet Volume 11.2 fL (9.4-12.4); Monocytes # (auto) 1.27 K/uL (0.11-0.59); Monocytes % (auto) 7.2 %; Neutrophils # (auto) 15.24 K/uL (1.40-6.50); Neutrophils % (auto) 86.4 %; Platelet Count 171 K/uL (130-400); RDW Coefficient of Variation 11.9 % (11.5-14.5); RDW Standard Deviation 36.6 fL (36.4-46.3); Red Blood Count 4.25 M/uL (4.20-5.40); White Blood Count 17.63 K/ul (4.8-10.8)
[2023-09-08 07:41] LABS: BUN Creatinine Ratio 13.9 (10-20); Calcium 9.2 mg/dl (8.6-10.3); Est GFR (Non-African American) 92.3 ml/min; Magnesium 1.7 mg/dl (1.7-2.4); Potassium 4.7 mmol/L (3.5-5.1)
[2023-09-08] MEDS: PANTOprazole 40 MG TAB PO SCH ×2 (08:10→20:20)
[2023-09-08] MEDS: dexAMETHasone 6 MG in SYRINGE 0 ML IV SCH (08:10)
[2023-09-08] MEDS: ATORVASTATIN 20 MG TAB PO SCH (08:10)
--- NOTE | 2023-09-08 08:51 | Hospitalist Progress Note ---
Date of Service September 08, 2023 Assessment & Plan (1) Lumbosacral radiculopathy at L3: Plan: s/p #1 removal of posterior instrumentation L4-L5. #2 exploration of fusion L4- 5. #3 lumbar decompression with bilateral medial facetectomies and foraminotomies L3-L4. #4 posterior spinal fusion L3-L4. #5 placement posterior instrumentation L3-L5. #6 interbody fusion L3-L4. #7 placement Spira 13 x 26 mm at L3-L4 per #8 placement locally harvested morselized autograft in the posterior gutters. #9 placement I factor combined with V toss in interbody space and posterior lateral gutters. EBL 50cc, MITZI output 161ml recorded Ancef/dexamethasone ordered by primary service WBC elevation likely 2nd to steroids, afebrile. Hgb stable on repeat Pain control/bowel regimen/PT/OT/DVT prophylaxis per primary service Encourage incentive spirometer. O2 as needed (likely with sleep given CHASITY/unable to tolerate CPAP) Overnight pulse ox ordered, and supplemental O2 w/ NC can be arranged at dc. Messaged CM about study for f/u in AM Monitor labs in AM (2) Diabetes mellitus, type 2: Plan: A1c 8.2 in July, up from prior At baseline on metformin 500mg BID --> ELEVATED BSGs last night in setting of increased A1c/steroid use this past year and steroids given w/ surgery Most recent BSG 239 Pharmacy on consult for glycemic management/assistance Again, suspect 500mg BID not sufficient given A1c 8.2 in July and would recommend increasing to 1gm BID in follow up discussions with primary care however patient notes they are going to check this once recovered from surgery as she has been on steroids much of this year and was previously well controlled in the 6s (3) GERD (gastroesophageal reflux disease): Plan: On omeprazole 20mg BID at baseline -- continue/hospital formulary while inpatient (4) Sleep apnea: Plan: non compliant. compliance encouraged however further discussion as outlined in HPI, has trialed multiple masks/nasal pillows, unable to tolerate Incentive spirometer encouraged Supplemental O2 to maintain sats, requiring at night. Outpt/fu for ongoing discussions and would consider at least 2L at night w/ PCP? Ordered overnight pulse ox study for tonight (5) Hyperlipidemia: Plan: continue atorvastatin 20mg daily Plan Thanks for allowing hospitalist medicine to participate in the care of Ms Daniels. Hospitalist service will follow along to f/u sleep study/rx for case management to arrange for supplemental O2 at dc Please call with any questions/concerns. Admission and Anticipated Discharge Date Admission Date: September 07, 2023 Subjective Eval this morning, son at bedside. Pain controlled w/ tramadol this morning and didn't need dilaudid but available. More incisional pain/R sided, possible muscle spasm. Did take baclofen last night and could take one today pending. Had a little headache this morning, resolved w/ tylenol. Passing gas. Waiting to see if able to dc walker today, has not been up with therapy. O2 2L w/ sleeping. Dsicussed prior sleep study, ~4 yrs ago, and will repeat overnight pulse ox and arrange for 2L w/ sleep pending study as she doesn't mind the nasal cannula and discussed better than nothing. Physical Exam 2 Physical Exam: General: WD/WN obese female sitting in bed, son at bedside, NAD HEENT head atraumatic, normocephalic, mm slightly dry, trachea midline +thick neck Resp even/unlabored, diminished in the bases, no w/c/r, on 2L CV: RRR, no significant m/r/g, no pitting edema/calf tenderness GI; +BS, soft/nt ; walker draining clear yellow urine MSK/Neuro: dressing in place to lumbar spine (some shadowing to lower/R side, marked) , drain w/ ~40-50cc bloody drainage, dorsiflexion/plantar flexion intact, strength equal 5/5 with such, sensation intact, toes mobile, pulses palpable Psych: AOx3, cooperative with exam Results & Data Results & Data Vital Signs (Past 12 Hours) Vital Signs Temp Pulse Pulse Resp BP BP Pulse Ox 09/08/23 07:27 71 20 107/72 96 09/08/23 07:16 36.6 C 72 14 97/57 L 90 09/08/23 04:12 36.5 C 73 16 114/74 97 09/08/23 01:51 95 09/08/23 01:30 87 L 09/07/23 23:00 36.5 C 106 H 16 106/65 100 O2 Del Method O2 Flow Rate 09/08/23 07:27 Nasal Cannula 2 09/08/23 07:16 Nasal Cannula 2 09/08/23 04:12 Nasal Cannula 1 09/08/23 01:51 Nasal Cannula 1 09/08/23 01:30 Room Air 09/07/23 23:00 Nasal Cannula 1 Laboratory Results 09/08/23 06:50 09/08/23 06:50 Diagnostic Findings Lumbar Spine X-Ray 09/07/23 10:05 FL lumbar spine 2-3V CLINICAL HISTORY: HW REMOVAL L3-L4 DECOMPRESSION L3-L5 FUSION TECHNIQUE: 2 views were obtained with the C-arm in the OR with the above procedure. Total fluoroscopy time was 11.3 seconds. Radiation dose was 7.45 mGy. Comparison: Comparison is made to MRI lumbar spine 01/12/2023 FINDINGS/IMPRESSION: Intraoperative images were obtained of L3-L4 decompression at L3-L5 fusion. Please correlate with intraoperative fluoroscopy and operative report. ACT 112: Negative or not required by law. Electronically signed by: Nav Calderon M.D. 09/07/2023 11:52 AM PG Care Time/CCT Total # of Minutes Spent Total Time Spent with Patient: Total time spent is greater than 50% in coordination of care (as documented) at patient's floor/unit and/or counseling patient: Coding Level of Care Code 51836 SUB INP/OBS CARE 2/35MIN Diagnoses Lumbosacral radiculopathy at L3 M54.17 Diabetes mellitus, type 2 E11.9 GERD (gastroesophageal reflux disease) K21.9 Sleep apnea G47.30 Hyperlipidemia E78.5
[2023-09-08] MEDS ORDERED: LANTUS PER UNIT CHARGE SC SCH (09:00)
--- NOTE | 2023-09-08 09:16 | Pharmacy Report ---
Pharmacy Glycemic Short Note 2 - Date of Service September 08, 2023 - Glycemic Short BSG Results (Last 24 hours): 09/07/23 09/07/23 09/07/23 12:05 16:40 19:55 Glucose POC Glucose 195 H 285 H 338 H* 09/07/23 09/08/23 09/08/23 19:56 00:18 04:02 Glucose POC Glucose 317 H* 236 H 207 H 09/08/23 09/08/23 06:50 07:35 Glucose 227 H POC Glucose 239 H OUTPATIENT ANTIDIABETIC REGIMEN: * metformin 500 mg PO BIDM HbA1c: 8.2% (08/06/23) ASSESSMENT: * AB is a 58 year old female POD #1 s/p spinal surgery * Received 8 mg IV dexamethasone in OR and ordered dexamethasone 6 mg IV da augusto x 3 days postoperatively * BSGs elevated postoperatively yesterday * Will give 0.4 unit/kg basal today with dexamethasone and keep at weight-based stress of 3 Novolog parameters * If lunch BSG still elevated, will tighten Novolog further PLAN FOR INPATIENT GLYCEMIC CONTROL: * Hold outpatient oral diabetes medications * Basal insulin * Lantus 35 units SC daily w/ IV dexamethasone (~0.4 unit/kg) * Bolus insulin * NovoLog per scale ACHS or Q6hrs while NPO * Goal Range: Low 10 mg/dL - High 140 mg/dL * Correction Factor: 15 mg/dL/unit * Nutritional / Prandial insulin per carb ratio of 1 unit per 4 grams CHO consumed
[2023-09-08] MEDS: HYDROmorphone INJ 1 MG/ML SYRINGE IV PRN (13:45)
[2023-09-08] MEDS: DOCUSATE SODIUM/SENNA 50/8.6MG TAB PO SCH (20:20)
[2023-09-08] MEDS: BACLOFEN 10 MG TAB PO SCH (20:21)
[2023-09-09] MEDS: traMADol HCL 50 MG TABLET PO PRN ×2 (06:40→09:26)
[2023-09-09] MEDS: POLYETHYLENE (MIRALAX) 17 GM PACK PO SCH ×3 (07:44→17:14)
[2023-09-09] MEDS: dexAMETHasone 6 MG in SYRINGE 0 ML IV SCH (08:19)
[2023-09-09] MEDS: PANTOprazole 40 MG TAB PO SCH ×2 (08:19→20:36)
[2023-09-09] MEDS: ATORVASTATIN 20 MG TAB PO SCH (08:19)
[2023-09-09] MEDS: INSULIN ASPART PER UNIT CHARGE SC SCH ×4 (08:20→20:49)
[2023-09-09] MEDS: LANTUS PER UNIT CHARGE SC SCH (08:21)
--- NOTE | 2023-09-09 08:51 | Orthopedic Progress Note ---
Date of Service September 09, 2023 Assessment & Plan (1) Neurogenic claudication due to lumbar spinal stenosis: Plan: Edel is postoperative day 2 status post hardware removal L3-4, decompression and fusion L4-5. She is doing well. Maintain MITZI drain today. Continue physical therapy and ambulation. DVT prophylaxis is in the form of teds and SCDs. Work on aggressive bowel regimen. Anticipate discharge home tomorrow Admission and Anticipated Discharge Date Admission Date: September 07, 2023 Subjective Edel is postoperative day 2 status post hardware removal of L3-4, decompression and fusion of L4-5. She has a bit more back pain today. Leg pain greatly improved though. MITZI drain output last shift was 50 cc. Yesterday in p hysical therapy Ambulating 290 feet. Notes some abdominal cramping and constipation. Review of Systems Review of Systems: All systems reviewed & are unremarkable except as noted in HPI & below Physical Exam Physical Exam: She sitting in chair no acute distress alert and oriented x 3 Lumbar dressing is clean dry and intact with functioning MITZI drain Strength is intact bilateral lower extremities Results & Data Vital Signs (Past 12 Hours) Vital Signs Temp Pulse Pulse Resp BP BP Pulse Ox 09/09/23 07:14 36.7 C 73 16 115/78 95 09/09/23 05:44 80 09/09/23 02:30 67 09/08/23 23:44 87 09/08/23 21:06 36.7 C 73 16 110/67 95 09/08/23 21:00 89 Pulse Ox O2 Del Method O2 Del Method 09/09/23 07:14 Room Air 09/09/23 05:44 94 Room Air 09/09/23 02:30 93 Room Air 09/08/23 23:44 93 Room Air 09/08/23 21:06 Room Air 09/08/23 21:00 93 Room Air
--- NOTE | 2023-09-09 14:54 | Pharmacy Report ---
Pharmacy Glycemic Short Note 2 - Date of Service September 09, 2023 - Glycemic Short BSG Results (Last 24 hours): 09/08/23 09/08/23 09/09/23 16:42 21:04 07:51 POC Glucose 253 H 249 H 182 H 09/09/23 11:39 POC Glucose 210 H OUTPATIENT ANTIDIABETIC REGIMEN: * metformin 500 mg PO BIDM HbA1c: 8.2% (08/06/23) ASSESSMENT: 09/09 * Edel received 99 units of insulin yesterday (35 were basal) * Fasting BSG this AM elevated, basal insulin increased by ~20% * Day 2 of 3 dexamethasone 6mg IV, no other glycemic stressors * Mealtime BSGs remain above goal range, tightened correction factor 09/08 * AB is a 58 year old female POD #1 s/p spinal surgery * Received 8 mg IV dexamethasone in OR and ordered dexamethasone 6 mg IV daily x 3 days postoperatively * BSGs elevated postoperatively yesterday * Will give 0.4 unit/kg basal today with dexamethasone and keep at weight-based stress of 3 Novolog parameters * If lunch BSG still elevated, will tighten Novolog further PLAN FOR INPATIENT GLYCEMIC CONTROL: * Hold outpatient oral diabetes medications * Basal insulin * Lantus 45 units SC daily w/ IV dexamethasone * Bolus insulin * NovoLog per scale ACHS or Q6hrs while NPO * Goal Range: Low 110 mg/dL - High 140 mg/dL * Correction Factor: 12 mg/dL/unit * Nutritional / Prandial insulin per carb ratio of 1 unit per 4 grams CHO consumed
--- NOTE | 2023-09-09 18:17 | Hospitalist Progress Note ---
Date of Service September 09, 2023 Assessment & Plan (1) Lumbosacral radiculopathy at L3: Plan: s/p #1 removal of posterior instrumentation L4-L5. #2 exploration of fusion L4- 5. #3 lumbar decompression with bilateral medial facetectomies and foraminotomies L3-L4. #4 posterior spinal fusion L3-L4. #5 placement posterior instrumentation L3-L5. #6 interbody fusion L3-L4. #7 placement Spira 13 x 26 mm at L3-L4 per #8 placement locally harvested morselized autograft in the posterior gutters. #9 placement I factor combined with V toss in interbody space and posterior lateral gutters. -Ancef/dexamethasone ordered by primary service -Pain control/bowel regimen/PT/OT/DVT prophylaxis per primary service - Encourage incentive spirometer. - Overnight pulse ox: <89% for 40 seconds, not requiring O2 overnight (2) Diabetes mellitus, type 2: Plan: A1c 8.2 in July, up from prior At baseline on metformin 500mg BID Pharmacy on consult for glycemic management/assistance -Has been on sliding scale insulin here, and most sugars have been 200+ Suspect 500mg BID not sufficient given A1c 8.2 in July and would recommend increasing to 1gm BID in follow up discussions with primary care however patient notes they are going to check this once recovered from surgery as she has been on steroids much of this year and was previously well controlled in the 6s --> will defer any medications to primary care at this time as they have been in discussion about this with patient already (3) GERD (gastroesophageal reflux disease): Plan: On omeprazole 20mg BID at baseline -- continue/hospital formulary while inpatient (4) Sleep apnea: Plan: non compliant. compliance encouraged however further discussion as outlined in HPI, has trialed multiple masks/nasal pillows, unable to tolerate Incentive spirometer encouraged Overnight pulse ox <89% for 40 seconds. (5) Hyperlipidemia: Plan: continue atorvastatin 20mg daily Plan Thanks for allowing hospitalist medicine to participate in the care of Ms Daniels. Hospitalist service will sign off. Deferring changes in outpatient diabetic reigment to PCP. Please contact us with any new concerns. Admission and Anticipated Discharge Date Admission Date: September 07, 2023 Subjective Patient seen sitting up in the chair after dinner. States that back pain has been alittle worse today. Discussed results of her pulse ox overnight, states everyone in her family has sleep apnea. Denies shortness of breath or chest pain. Discussion about her diabetes, states she has been following her PCP for this and PCP feels they cannot get an accurate view of her diabetic control. want to do an A1c after she is off steroid and see what needs to be done. reports they have talked about increasing her Metformin. Review of Systems Review of Systems: All systems reviewed & are unremarkable except as noted in Subjective Physical Exam Physical Exam: General: WN/WD, NAD, VS as above Resp: normal respiratory effort, lungs clear to auscultation CV: RRR, no murmur, Abd: non tender, no hepatosplenomegaly Back: dressing c/d/i Neuro: A&O x3, Results & Data Results & Data Vital Signs (Past 12 Hours) Vital Signs Temp Pulse Resp BP BP Pulse Ox O2 Del Method 09/09/23 14:56 36.6 C 68 16 124/73 95 Room Air 09/09/23 08:15 Room Air 09/09/23 07:14 36.7 C 73 16 115/78 95 Room Air PG Care Time/CCT Total # of Minutes Spent Total Time Spent with Patient: Total time spent is greater than 50% in coordination of care (as documented) at patient's floor/unit and/or counseling patient: Coding Level of Care Code 46530 SUB INP/OBS CARE 2/35MIN Diagnoses Lumbosacral radiculopathy at L3 M54.17 Diabetes mellitus, type 2 E11.9 GERD (gastroesophageal reflux disease) K21.9 Sleep apnea G47.30 Hyperlipidemia E78.5
[2023-09-09] MEDS: HYDROmorphone INJ 1 MG/ML SYRINGE IV PRN (20:31)
[2023-09-09] MEDS: BACLOFEN 10 MG TAB PO SCH (20:36)
[2023-09-09] MEDS: DOCUSATE SODIUM/SENNA 50/8.6MG TAB PO SCH (20:36)
[2023-09-10] MEDS: POLYETHYLENE (MIRALAX) 17 GM PACK PO SCH ×2 (00:29→05:46)
[2023-09-10] MEDS: traMADol HCL 50 MG TABLET PO PRN (05:46)
[2023-09-10] MEDS: dexAMETHasone 6 MG in SYRINGE 0 ML IV SCH (08:32)
[2023-09-10] MEDS: INSULIN ASPART PER UNIT CHARGE SC SCH (08:32)
[2023-09-10] MEDS: PANTOprazole 40 MG TAB PO SCH (08:33)
[2023-09-10] MEDS: ATORVASTATIN 20 MG TAB PO SCH (08:33)
[2023-09-10] MEDS: LANTUS PER UNIT CHARGE SC SCH (08:33)
--- NOTE | 2023-09-10 08:46 | Discharge Summary ---
Date of Service September 10, 2023 Admission HPI Per Admitting Provider This is a 50-year-old female known to me the presents with chronic persistent back and leg pain after failing course of nonoperative care is here for surgical invention. Principal Diagnosis Lumbar spinal stenosis with radiculopathy Discharge Data Allergies Allergy/AdvReac Type Severity Reaction Status Date / Time gabapentin Allergy Severe Dyspnea, Verified 09/07/23 08:43 vomiting, "drunk" feeling codeine AdvReac Intermediate N/V Verified 09/07/23 08:43 medroxyprogesterone AdvReac Intermediate Migraines Verified 09/07/23 08:43 [From Depo-Provera] oxycodone AdvReac Intermediate Vomiting Verified 09/07/23 08:43 Consultations 09/07/23 13:21 Consult Hospitalist Routine Procedures Performed Operation Date: 09/07/23 10:05 Actual Procedures p L3-L4 Decompression, L3-L5 Fusion, Spinal Cord Monitoring - Rajesh Jett DO s Hardware Removal of the Spine(Not Applicable) - Rajesh Jett DO Ordered Studies 09/07/23 10:05 FL lumbar spine 2-3V Routine Hospital Course (1) Lumbosacral radiculopathy at L3: Patient with lumbar decompression fusion tolerated as well as taken orthopedic for postop bleed.. Postoperatively she progressed probably. MITZI drain decreasing well. Extra strength testing. Pain well-controlled. Subsidy discharged home. Discharge orders instructions found in chart for further review. Total Time Total Time Spent Total Time Spent (In Minutes): 20 minutes Discharge Plan Discharge Items Patient Disposition: Home - Self-Care Reason For Visit: Lumbar Disc Herniation with Radiculopathy Discharge Diagnosis: Lumbar disc herniation with radiculopathy Activity: As commented below Non-emergency contact: Specialist Call non-emergency contact if: you have any medication questions Follow-up/Referrals: Linda Martini M.D. [Primary Care Provider] - Diet: Regular Addtl Attending Provider Instructions: ACTIVITY RECOMMENDATIONS: SELF CARE INSTRUCTIONS AFTER THORACIC/LUMBAR FUSIONS 1. You may walk to your tolerance. It is good exercise for your legs and back. Expect some back and intermittent leg aches and pains. 2. You may perform "counter-top" level activities (make a sandwich, terrance with a project, etc.). 3. No bending or lifting of more than 10 pounds or back twisting of any nature (roll like a log when turning in bed). 4. You may ride in a car for 20-30 minutes at a time. No driving until after your first visit with your doctor. 5. Frequent changes of position and restricting sitting to 30 minutes at a time will help limit the amount of back spasms and stiffness you may experience. 6. You may discontinue the use of ambulatory aids (cane, crutches, etc.) once your strength and confidence allow. 7. You may stone polisher machine the shower and let water strike your incision when you arrive home at least once daily. Do not take a tub bath, sit in a hot tub or go into a swimming pool until after your first recheck in the office. SPECIAL CARE INSTRUCTIONS: VERY IMPORTANT TO READ AND REVIEW A. Your surgical incision has been closed with a cosmetic suture under the skin that will dissolve in about 6 weeks. In 14 days, you can use a pair of clean scissors and cut the suture that is left outside of the skin at the ends of your incision. 1. The small skin tapes can be removed 7 days after surgery if they have not fallen off by that point. 2. You may keep the wound open to air as much as possible to promote healing after post-op day number 5 unless told otherwise by your doctor. 3. If you think the wound looks like it is becoming infected (redness or worsening drainage) and/or you are experiencing fever, chill or worsening back pain and muscle spasms, contact the office so that we may evaluate you as soon as possible. B. Complications are uncommon, but please contact us if you have any signs or symptoms of: 1. wound infection (fever higher than 102.5 degrees F, redness, separation of wound, drainage, or increasing pain from the incision) 2. blood clots in legs (pain, swelling, redness and warmth in legs) 3. urinary tract infection (fever higher than 102.5 degrees F, burning upon urination or increased frequency of urination) 4. nerve problems (inability to walk on your toes or heels, numbness, loss of bowel or bladder control) 5. any other symptoms that concern you C. Please call the office at if you have any concerns or questions about your operation or recovery. D. No smoking! Smoking drastically decreases the chance of a solid fusion. E. Do not take any anti-inflammatory medications (Indocin, Advil, Motrin, Aspirin, Naprosyn, etc.) as these may inhibit the chance of a solid fusion. Tylenol is okay to take for pain. MANAGING PAIN AFTER SPINAL SURGERY 1. Narcotic medication is intended for short-term use and will be provided for surgical pain. Surgical pain usually lasts for a period of 4-6 weeks. Narcotic medication includes Percocet, Vicodin, Darvocet, Tylenol #3 or Lortab. 2. Longer-term pain is more appropriately treated with non-narcotic medication such as Tylenol ES. 3. Muscle spasm is not appropriately treated with narcotics. Muscle relaxers such as Soma, Flexeril or Skelaxin can be used along with Tylenol ES. 4. Remember that we all live with some "aches and pains". This is not unusual or uncommon after an injury or as we get older. a. Back pain is expected and may include muscle spasms for 4 to 6 weeks after surgery. The pain should gradually improve. If the pain worsens for no apparent reason, please contact the office. b. Intermittent leg pain may also be experienced and should not be concerned about unless it worsens for no apparent reason. If so, please contact the office. 5. We will provide appropriate medication within the normal guidelines of their prescribed use. We will also be very cautious and aware of potential abuse and extended duration of patients' medication needs. a. Pain medications are for your comfort and to assist with sleep and rest so that the tissue can heal. They are not provided in order to return to normal activity and should not be used through the day. To do so or worsening pain at night can result from ongoing tissue damage and development of tolerance to the prescribed medicine. 6. Please allow 2-3 days to process refills. Prescriptions will not be mailed but must be picked up at the office. FOLLOW UP VISIT: Keep your scheduled follow-up appointment. Any questions, please call the office at . Addtl Ethernet Network Architect Provider Instructions: Hospitalist notes - When we checked your blood sugars here, many of them were over 200 despite insulin. It is very important to follow up with your PCP for diabetes management. 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 Pending Studies at Discharge: No Stand-Alone Forms: My [facility], Smoking Cessation Medications and DC Order Prescriptions: New hydrocodone-acetaminophen 5-325 mg tablet 1 tab PO Q6H PRN (Reason: pain) Qty: 30 0RF Continued baclofen 10 mg tablet 10 mg PO HS Qty: 30 2RF tramadol 50 mg tablet 50 mg PO Q6H PRN (Reason: pain) Qty: 40 0RF metformin 500 mg Tablet 500 mg PO BID atorvastatin 20 mg Tablet 20 mg PO QAM omeprazole 20 mg Tablet,Delayed Release (Dr/Ec) 20 mg PO BID Discharge Orders: Discharge Order (Routine); Ordered 09/10/23 Ordered By: Rajesh Jett Admission Data Admit Date/Time: 09/07/23 11:47 Attending Provider: Rajesh Jett Admit Provider: Rajesh Jett Primary Care Provider: Linda Martini
[2023-09-10] MEDS: HYDROmorphone INJ 1 MG/ML SYRINGE IV PRN (10:04)
== END 2023-09-10 10:16 | disposition home or self-care (01) | DRG 455 ==
LOC: ASU 08:04 → 3W 11:47